=== PATIENT | female | born 1930 | race Caucasian/White ===

== ENCOUNTER → 2016-07-26 | Outpatient (CLI) | payer MEDICARE, OTHER ==
--- NOTE | 2016-07-26 13:59 | REP ---
RIGHT SHOULDER: Four views. HISTORY: Pain in the right shoulder. FINDINGS: Four views right shoulder demonstrate diffuse osteopenia. There are large periarticular soft tissue calcific deposits in the region of the rotator cuff or subacromial bursa consistent with calcific tendonitis or bursitis. Vascular calcification is noted. The glenohumeral and acromioclavicular joints are normally aligned. Clothing artifact is seen over the mediastinum on the frontal views. IMPRESSION: Large soft tissue calcific deposits consistent with calcific tendonitis or bursitis. Diffuse osteopenia. No traumatic abnormality. Signed by Alejo Salinas MD 07/26/2016 03:19 P
== END ==
LOC: M ADAMS 09:27
PROVIDERS: ATTEND Physician Assistant
DX: M85.811 Other specified disorders of bone density and structure, right shoulder (principal); M25.511 Pain in right shoulder

== ENCOUNTER → 2017-06-01 | Outpatient (CLI) | payer MEDICARE ==
--- NOTE | 2017-06-01 10:42 | REP ---
CAROTID DUPLEX ULTRASOUND: 06/01/2017. Clinical history: Hypotension, dizziness. Questionable bruit. Findings: There were no prior studies. Standard duplex techniques were utilized to evaluate both carotid systems. There is some intimal thickening in the right common carotid with some mixed plaque in the mid course of the artery. At the bulb, there is circumferential mixed and hard plaque which extends into the proximal ICA and ECA. The left common carotid shows intimal thickening and circumferential mixed plaque at the bulb and extending into both ICA and ECA. RIGHT LEFT CCA systolic 0.58 0.70 m/s ICA systolic 0.75 1.72 m/s ICA diastolic 0.17 0.25 m/s ECA systolic 0.77 1.15 m/s IC/CC ratio 1.3 2.5 Cranial direction of flow seen in both vertebral arteries. The Doppler waveform analysis does not show significant spectral broadening or filling in of the systolic window on the right side despite the visible plaque. The left internal carotid Doppler tracing shows minimal spectral broadening and partial filling of the systolic window. This is in the proximal left ICA. Impression: 1. Severe stenosis of the left internal carotid (50-70% narrowing). This is considered a hemodynamically significant lesion but not critical. Circumferential mixed plaque bulb and proximal left ICA. 2. Mild carotid disease in the right ICA, less than 50% stenosis. This is not considered hemodynamically significant or flow restricting. 3. Cranial directional of flow in the vertebral arteries. Signed by Leo Luis MD 06/01/2017 07:33 P
== END ==
LOC: M RAD 08:56
PROVIDERS: ATTEND Physician Assistant
DX: R09.89 Other specified symptoms and signs involving the circulatory and respiratory systems (principal)

== ENCOUNTER → 2017-12-26 | Outpatient (CLI) | payer MEDICARE | LOC: M RAD 11:43 | DX: I70.213 Atherosclerosis of native arteries of extremities with intermittent claudication, bilateral legs (principal) | CPT/HCPCS: 93925 ==

== ENCOUNTER → 2018-01-16 | Outpatient (CLI) | payer MEDICARE ==
[2018-01-16 16:51] LABS: BASO # 0.1 10^3/uL (0.0-0.2); BASO % 0.7 % (0.0-1.0); EOS # 0.1 10^3/uL (0.0-0.50); HEMATOCRIT 38.9 % (36.0-47.0); HEMOGLOBIN 12.7 g/dl (12.0-15.5); IMMATURE GRANULOCYTE % 0.7 % (0-3.0); LYMPH # 1.5 10^3/uL (1.5-4.5); LYMPH % 22.2 % (24.0-44.0); MEAN CORPUSCULAR HEMOGLOBIN 31.3 pg (27.0-33.0); MEAN CORPUSCULAR HGB CONC 32.6 g/dl (32.0-36.5); MEAN CORPUSCULAR VOLUME 95.8 fl (80.0-96.0); MONO # 0.6 10^3/uL (0.0-0.8); MONO % 8.1 % (0.0-5.0); NEUTROPHILS # 4.6 10^3/uL (1.8-7.7); NEUTROPHILS % 66.3 % (36.0-66.0); PLATELET COUNT, AUTOMATED 255 10^3/uL (150-450); RED BLOOD COUNT 4.06 10^6/uL (4.00-5.40); RED CELL DISTRIBUTION WIDTH 14.1 % (11.5-14.5); WHITE BLOOD COUNT 6.9 10^3/uL (4.0-10.0)
[2018-01-16 17:06] LABS: ANION GAP 6 MEQ/L (8-16); BLOOD UREA NITROGEN 37 MG/DL (7-18); CARBON DIOXIDE LEVEL 30 MEQ/L (21-32); CHLORIDE LEVEL 108 MEQ/L (98-107); CREATININE FOR GFR 1.81 MG/DL (0.55-1.30); GLOMERULAR FILTRATION RATE 28.3 (>32); GLUCOSE, FASTING 100 MG/DL (70-100); POTASSIUM SERUM 4.6 MEQ/L (3.5-5.1); SODIUM LEVEL 144 MEQ/L (136-145)
== END ==
LOC: M LAB 16:06
DX: I65.23 Occlusion and stenosis of bilateral carotid arteries (principal)
CPT/HCPCS: 80048

== ENCOUNTER 2018-01-20 14:10 | Inpatient (IN) | payer MEDICARE ==
[2018-01-20 15:00] LABS: BASO # 0.1 10^3/uL (0.0-0.2); BASO % 0.5 % (0.0-1.0); EOS # 0.1 10^3/uL (0.0-0.50); EOS % 0.8 % (0.0-3.0); HEMOGLOBIN 12.1 g/dl (12.0-15.5); IMMATURE GRANULOCYTE % 0.9 % (0-3.0); LYMPH # 1.2 10^3/uL (1.5-4.5); LYMPH % 12.7 % (24.0-44.0); MEAN CORPUSCULAR HEMOGLOBIN 31.5 pg (27.0-33.0); MEAN CORPUSCULAR HGB CONC 32.7 g/dl (32.0-36.5); MEAN CORPUSCULAR VOLUME 96.4 fl (80.0-96.0); MONO # 0.7 10^3/uL (0.0-0.8); MONO % 6.9 % (0.0-5.0); NEUTROPHILS # 7.6 10^3/uL (1.8-7.7); NEUTROPHILS % 78.2 % (36.0-66.0); PLATELET COUNT, AUTOMATED 245 10^3/uL (150-450); RED BLOOD COUNT 3.84 10^6/uL (4.00-5.40); RED CELL DISTRIBUTION WIDTH 14.3 % (11.5-14.5); WHITE BLOOD COUNT 9.7 10^3/uL (4.0-10.0)
[2018-01-20 15:15] LABS: PROTHROMBIN TIME 14.3 SECONDS (12.1-14.4)
[2018-01-20 15:16] LABS: PARTIAL THROMBOPLASTIN TIME 26.8 SECONDS (25.4-37.6)
[2018-01-20 15:21] LABS: ANION GAP 4 MEQ/L (8-16); BLOOD UREA NITROGEN 36 MG/DL (7-18); CALCIUM LEVEL 8.9 MG/DL (8.8-10.2); CARBON DIOXIDE LEVEL 29 MEQ/L (21-32); CHLORIDE LEVEL 110 MEQ/L (98-107); CREATININE FOR GFR 1.81 MG/DL (0.55-1.30); GLOMERULAR FILTRATION RATE 28.3 (>32); GLUCOSE, FASTING 117 MG/DL (70-100); SODIUM LEVEL 143 MEQ/L (136-145)
[2018-01-20 15:27] LABS: POTASSIUM SERUM 5.6 MEQ/L (3.5-5.1)
[2018-01-20 16:30] LABS: ALT/SGPT 15 U/L (12-78); AST/SGOT 26 U/L (7-37); CPK CREATINE PHOSPHOKINASE 68 U/L (26-192)
[2018-01-20 16:31] LABS: ALBUMIN 3.5 GM/DL (3.2-5.2); ALBUMIN/GLOBULIN RATIO 0.97 (1.00-1.93); ALKALINE PHOSPHATASE 46 U/L (45-117); BILIRUBIN,DIRECT 0.2 MG/DL (0.0-0.2); BILIRUBIN,TOTAL 0.4 MG/DL (0.2-1.0); TOTAL PROTEIN 7.1 GM/DL (6.4-8.2)
[2018-01-20 16:33] LABS: TROPONIN I < 0.02 NG/ML (< 0.10)
[2018-01-20 16:34] LABS: CK-MB VALUE MASS 1.1 NG/ML (<3.6); MB/CK RELATIVE INDEX 1.54 (< OR =4)
[2018-01-20] MEDS: CALCIUM GLUCONATE 1,000 MG in D5W MINI-BAG PLUS 100 ML IV (17:00)
[2018-01-20] MEDS: NS 1,000 ML IV (17:00)
[2018-01-20] MEDS: ONDANSETRON 4MG/2ML VIAL (J2405) IV (17:00)
[2018-01-20] MEDS: MORPHINE 2 MG/ML 1ML SYRINGE (J2270) IV ×3 (17:00→21:35)
[2018-01-20] MEDS: NS 500 ML IV (17:43)
[2018-01-20 19:25] LABS: ANION GAP 6 MEQ/L (8-16); BLOOD UREA NITROGEN 35 MG/DL (7-18); CALCIUM LEVEL 8.9 MG/DL (8.8-10.2); CARBON DIOXIDE LEVEL 28 MEQ/L (21-32); CHLORIDE LEVEL 110 MEQ/L (98-107); GLOMERULAR FILTRATION RATE 30.4 (>32); GLUCOSE, FASTING 110 MG/DL (70-100); SODIUM LEVEL 144 MEQ/L (136-145)
[2018-01-20] MEDS: PRAVASTATIN 20 MG TAB PO (21:00)
[2018-01-20] MEDS: ASPIRIN 81 MG ENTERIC TAB PO (21:00)
[2018-01-20] MEDS ORDERED: ONDANSETRON 4MG/2ML VIAL (J2405) IV (22:00)
[2018-01-20] MEDS ORDERED: BETAMETHASONE DIP 0.05% OINT 15 GM TOP (22:00)
[2018-01-20] MEDS ORDERED: ACETAMINOPHEN TAB 650MG DOSE (2X325MG) PO (22:00)
[2018-01-20 23:11] LABS: CPK CREATINE PHOSPHOKINASE 67 U/L (26-192); TROPONIN I < 0.02 NG/ML (< 0.10)
[2018-01-20 23:12] LABS: CK-MB VALUE MASS < 1.0 NG/ML (<3.6); MB/CK RELATIVE INDEX 1.49 (< OR =4)
[2018-01-20] MEDS: PERCOCET 5MG/325MG TAB PO (23:42)
[2018-01-21] MEDS: MORPHINE 4 MG/ML 1ML VIAL/SYRINGE (J2270) IV ×4 (01:39→11:16)
[2018-01-21] MEDS: NS 1,000 ML IV ×2 (01:51→16:15)
[2018-01-21 04:56] LABS: HEMATOCRIT 35.5 % (36.0-47.0); HEMOGLOBIN 11.2 g/dl (12.0-15.5); MEAN CORPUSCULAR HEMOGLOBIN 31.1 pg (27.0-33.0); MEAN CORPUSCULAR HGB CONC 31.5 g/dl (32.0-36.5); MEAN CORPUSCULAR VOLUME 98.6 fl (80.0-96.0); PLATELET COUNT, AUTOMATED 220 10^3/uL (150-450); RED CELL DISTRIBUTION WIDTH 14.4 % (11.5-14.5); WHITE BLOOD COUNT 10.1 10^3/uL (4.0-10.0)
[2018-01-21 05:18] LABS: ALBUMIN 3.2 GM/DL (3.2-5.2); ANION GAP 7 MEQ/L (8-16); BLOOD UREA NITROGEN 31 MG/DL (7-18); CALCIUM LEVEL 8.5 MG/DL (8.8-10.2); CARBON DIOXIDE LEVEL 27 MEQ/L (21-32); CHLORIDE LEVEL 110 MEQ/L (98-107); CK-MB VALUE MASS < 1.0 NG/ML (<3.6); CPK CREATINE PHOSPHOKINASE 76 U/L (26-192); CREATININE FOR GFR 1.67 MG/DL (0.55-1.30); GLUCOSE, FASTING 104 MG/DL (70-100); MB/CK RELATIVE INDEX 1.31 (< OR =4); PHOSPHORUS LEVEL 3.9 MG/DL (2.5-4.9); SODIUM LEVEL 144 MEQ/L (136-145); TROPONIN I < 0.02 NG/ML (< 0.10)
[2018-01-21 05:29] LABS: ESTIMATED AVERAGE GLUCOSE 123 MG/DL (60-110); HEMOGLOBIN A1c 5.9 %
[2018-01-21] MEDS: IPRATROPIUM 0.5MG/ALBUTEROL 2.5MG INH SOL UD 3ML (DUONEB)(J7620) NEB ×4 (06:38→19:27)
[2018-01-21] MEDS: SENOKOT S TAB PO ×2 (08:51→21:44)
[2018-01-21] MEDS ORDERED: METOPROLOL 5 MG/5 ML VIAL As Ordered ×2 (10:27→10:40)
[2018-01-21] MEDS: METOPROLOL 5 MG/5 ML VIAL IV ×2 (10:36→10:52)
[2018-01-21] MEDS: METOPROLOL TART 25 MG TABLET PO (10:42)
[2018-01-21] MEDS: PERCOCET 5MG/325MG TAB PO (10:43)
[2018-01-21] MEDS ORDERED: CLINDAMYCIN 600 MG/50 ML PREMIX BAG As Ordered (12:16)
[2018-01-21] MEDS: CLINDAMYCIN 600 MG in APPROPRIATE DILUENT 1 EA IV (12:41)
[2018-01-21] MEDS ORDERED: dexameTHASONE 4 MG/ML 1ML VIAL (J1100) As Ordered (13:16)
[2018-01-21] MEDS ORDERED: PROPOFOL 200 MG/20 ML VIAL As Ordered (13:16)
[2018-01-21] MEDS ORDERED: PHENYLEPHRINE INJ 10MG/ML VIAL (J2370) As Ordered (13:16)
[2018-01-21] MEDS ORDERED: MIDAZOLAM INJ 2 MG/2 ML VIAL (J2250) As Ordered (13:16)
[2018-01-21] MEDS ORDERED: ONDANSETRON 4MG/2ML VIAL (J2405) As Ordered (13:16)
[2018-01-21] MEDS ORDERED: fentaNYL 250 MCG/5 ML INJECTION (J3010) As Ordered (13:16)
[2018-01-21] MEDS ORDERED: ROCURONIUM BROMIDE 50 MG/5 ML VIAL As Ordered (13:16)
[2018-01-21] MEDS ORDERED: ePHEDrine SULFATE 25 MG/5 ML(5MG/ML) SYRINGE As Ordered (13:16)
[2018-01-21] MEDS ORDERED: LIDOCAINE 2% INJ 100 MG/5 ML SDV (FOR ANES.) As Ordered (13:16)
[2018-01-21] MEDS ORDERED: GLYCOPYRROLATE INJ 0.2 MG/ML 2 ML VIAL As Ordered (13:26)
[2018-01-21] MEDS ORDERED: NEOSTIGMINE 10 MG/10 ML VIAL (J2710) As Ordered (13:26)
[2018-01-21] MEDS: BUPIVACAINE/EPIN 0.5% 30 ML VIAL As Ordered (13:33)
[2018-01-21] MEDS ORDERED: HEPARIN SOD (PORCINE) 5000 UNITS/ML VIAL SC (14:00)
[2018-01-21] MEDS ORDERED: fentaNYL 100 MCG/2 ML INJECTION (J3010) IV (14:15)
[2018-01-21] MEDS ORDERED: NORCO, ANEXSIA 5/325MG TABLET (HYDROcodone/ACETAMINOPHEN) PO (14:15)
[2018-01-21] MEDS ORDERED: ONDANSETRON 4MG/2ML VIAL (J2405) IV (14:15)
[2018-01-21] MEDS: LR 1,000 ML IV (14:15)
[2018-01-21] MEDS ORDERED: traMADol 50 MG TAB PO (14:30)
[2018-01-21] MEDS: VITAMIN D 1,000 INTERNATIONAL UNITS TABLET PO (21:00)
[2018-01-21] MEDS ORDERED: LISINOPRIL 10 MG TAB PO (21:00)
[2018-01-21] MEDS: PRAVASTATIN 20 MG TAB PO (21:44)
[2018-01-21] MEDS: traMADol 50 MG TAB PO (21:44)
[2018-01-22] MEDS: ACETAMINOPHEN TAB 650MG DOSE (2X325MG) PO (00:25)
[2018-01-22] MEDS: IPRATROPIUM 0.5MG/ALBUTEROL 2.5MG INH SOL UD 3ML (DUONEB)(J7620) NEB ×4 (02:00→20:50)
[2018-01-22 04:08] LABS: HEMATOCRIT 30.3 % (36.0-47.0); HEMOGLOBIN 9.5 g/dl (12.0-15.5); MEAN CORPUSCULAR HGB CONC 31.4 g/dl (32.0-36.5); PLATELET COUNT, AUTOMATED 179 10^3/uL (150-450); RED BLOOD COUNT 3.06 10^6/uL (4.00-5.40); RED CELL DISTRIBUTION WIDTH 14.3 % (11.5-14.5); WHITE BLOOD COUNT 12.4 10^3/uL (4.0-10.0)
[2018-01-22 04:33] LABS: ALBUMIN 2.7 GM/DL (3.2-5.2); ANION GAP 5 MEQ/L (8-16); BLOOD UREA NITROGEN 29 MG/DL (7-18); CALCIUM LEVEL 7.7 MG/DL (8.8-10.2); CARBON DIOXIDE LEVEL 25 MEQ/L (21-32); CHLORIDE LEVEL 113 MEQ/L (98-107); CREATININE FOR GFR 1.49 MG/DL (0.55-1.30); GLOMERULAR FILTRATION RATE 35.4 (>32); GLUCOSE, FASTING 146 MG/DL (70-100); PHOSPHORUS LEVEL 3.3 MG/DL (2.5-4.9); SODIUM LEVEL 143 MEQ/L (136-145); THYROID STIMULATING HORMONE 0.747 uIU/ML (0.358-3.740)
[2018-01-22] MEDS: NS 1,000 ML IV ×2 (05:22→18:15)
[2018-01-22] MEDS: traMADol 50 MG TAB PO ×2 (05:22→13:02)
[2018-01-22] MEDS: MIRALAX *UNIT DOSE* 17GM PACKET PO (09:33)
[2018-01-22] MEDS: MOM 30ML SUSPENSION UDC PO (09:33)
[2018-01-22] MEDS: SENOKOT S TAB PO ×2 (09:33→19:58)
[2018-01-22] MEDS: RIVAROXABAN 10 MG TAB (XARELTO) PO (18:16)
[2018-01-22] MEDS: PRAVASTATIN 20 MG TAB PO (19:58)
[2018-01-22] MEDS: VITAMIN D 1,000 INTERNATIONAL UNITS TABLET PO (19:59)
[2018-01-23] MEDS: IPRATROPIUM 0.5MG/ALBUTEROL 2.5MG INH SOL UD 3ML (DUONEB)(J7620) NEB ×4 (01:40→20:45)
[2018-01-23 05:07] LABS: HEMATOCRIT 25.9 % (36.0-47.0); HEMOGLOBIN 8.1 g/dl (12.0-15.5); MEAN CORPUSCULAR HEMOGLOBIN 31.3 pg (27.0-33.0); MEAN CORPUSCULAR HGB CONC 31.3 g/dl (32.0-36.5); PLATELET COUNT, AUTOMATED 166 10^3/uL (150-450); RED BLOOD COUNT 2.59 10^6/uL (4.00-5.40); RED CELL DISTRIBUTION WIDTH 14.7 % (11.5-14.5); WHITE BLOOD COUNT 9.6 10^3/uL (4.0-10.0)
[2018-01-23] MEDS: NS 1,000 ML IV ×2 (05:20→17:50)
[2018-01-23 05:27] LABS: ALBUMIN 2.5 GM/DL (3.2-5.2); ANION GAP 7 MEQ/L (8-16); BLOOD UREA NITROGEN 40 MG/DL (7-18); CARBON DIOXIDE LEVEL 25 MEQ/L (21-32); CHLORIDE LEVEL 112 MEQ/L (98-107); CREATININE FOR GFR 1.71 MG/DL (0.55-1.30); GLOMERULAR FILTRATION RATE 30.2 (>32); GLUCOSE, FASTING 116 MG/DL (70-100); MAGNESIUM LEVEL 2.2 MG/DL (1.8-2.4); PHOSPHORUS LEVEL 2.8 MG/DL (2.5-4.9); POTASSIUM SERUM 5.1 MEQ/L (3.5-5.1); SODIUM LEVEL 144 MEQ/L (136-145)
[2018-01-23] MEDS: MIRALAX *UNIT DOSE* 17GM PACKET PO (08:47)
[2018-01-23] MEDS: SENOKOT S TAB PO ×2 (08:48→20:09)
[2018-01-23] MEDS: MOM 30ML SUSPENSION UDC PO (08:48)
[2018-01-23] MEDS: traMADol 50 MG TAB PO (08:51)
[2018-01-23] MEDS: DIGOXIN INJ 0.5 MG/2 ML AMP (J1160) IV (14:03)
[2018-01-23] MEDS: RIVAROXABAN 10 MG TAB (XARELTO) PO (17:49)
[2018-01-23] MEDS: PRAVASTATIN 20 MG TAB PO (20:09)
[2018-01-23] MEDS: VITAMIN D 1,000 INTERNATIONAL UNITS TABLET PO (20:09)
[2018-01-23] MEDS: VERAPAMIL 80 MG TAB PO (21:21)
[2018-01-24] MEDS: IPRATROPIUM 0.5MG/ALBUTEROL 2.5MG INH SOL UD 3ML (DUONEB)(J7620) NEB ×4 (01:30→20:19)
[2018-01-24] MEDS: traMADol 50 MG TAB PO ×2 (02:38→09:29)
[2018-01-24 05:38] LABS: HEMATOCRIT 25.6 % (36.0-47.0); HEMOGLOBIN 8.1 g/dl (12.0-15.5); MEAN CORPUSCULAR HEMOGLOBIN 32.4 pg (27.0-33.0); MEAN CORPUSCULAR HGB CONC 31.6 g/dl (32.0-36.5); MEAN CORPUSCULAR VOLUME 102.4 fl (80.0-96.0); PLATELET COUNT, AUTOMATED 193 10^3/uL (150-450); RED CELL DISTRIBUTION WIDTH 14.3 % (11.5-14.5); WHITE BLOOD COUNT 9.4 10^3/uL (4.0-10.0)
[2018-01-24 05:58] LABS: ALBUMIN 2.2 GM/DL (3.2-5.2); ANION GAP 5 MEQ/L (8-16); BLOOD UREA NITROGEN 33 MG/DL (7-18); CALCIUM LEVEL 7.9 MG/DL (8.8-10.2); CARBON DIOXIDE LEVEL 26 MEQ/L (21-32); CHLORIDE LEVEL 111 MEQ/L (98-107); CREATININE FOR GFR 1.31 MG/DL (0.55-1.30); GLOMERULAR FILTRATION RATE 41.1 (>32); GLUCOSE, FASTING 97 MG/DL (70-100); PHOSPHORUS LEVEL 2.4 MG/DL (2.5-4.9); SODIUM LEVEL 142 MEQ/L (136-145)
[2018-01-24 06:01] LABS: POTASSIUM SERUM 5.2 MEQ/L (3.5-5.1)
[2018-01-24] MEDS: VERAPAMIL 80 MG TAB PO ×3 (06:06→21:28)
[2018-01-24] MEDS: NS 1,000 ML IV ×2 (09:14→23:11)
[2018-01-24] MEDS: MIRALAX *UNIT DOSE* 17GM PACKET PO (09:14)
[2018-01-24] MEDS: SENOKOT S TAB PO ×2 (09:14→21:28)
[2018-01-24] MEDS: MOM 30ML SUSPENSION UDC PO (09:14)
[2018-01-24] MEDS: DIGOXIN 0.125 MG TAB PO (09:15)
[2018-01-24 12:39] LABS: ALBUMIN 2.4 GM/DL (3.2-5.2); ANION GAP 8 MEQ/L (8-16); BLOOD UREA NITROGEN 35 MG/DL (7-18); CALCIUM LEVEL 8.2 MG/DL (8.8-10.2); CARBON DIOXIDE LEVEL 27 MEQ/L (21-32); CHLORIDE LEVEL 109 MEQ/L (98-107); CREATININE FOR GFR 1.35 MG/DL (0.55-1.30); GLOMERULAR FILTRATION RATE 39.7 (>32); GLUCOSE, FASTING 108 MG/DL (70-100); PHOSPHORUS LEVEL 2.8 MG/DL (2.5-4.9); SODIUM LEVEL 144 MEQ/L (136-145)
[2018-01-24 12:43] LABS: POTASSIUM SERUM 5.2 MEQ/L (3.5-5.1)
[2018-01-24] MEDS: RIVAROXABAN 10 MG TAB (XARELTO) PO (18:05)
[2018-01-24] MEDS: PRAVASTATIN 20 MG TAB PO (21:27)
[2018-01-24] MEDS: VITAMIN D 1,000 INTERNATIONAL UNITS TABLET PO (21:28)
[2018-01-25] MEDS: traMADol 50 MG TAB PO (00:41)
[2018-01-25] MEDS: IPRATROPIUM 0.5MG/ALBUTEROL 2.5MG INH SOL UD 3ML (DUONEB)(J7620) NEB ×5 (01:11→20:19)
[2018-01-25] MEDS: VERAPAMIL 80 MG TAB PO ×3 (05:32→22:05)
[2018-01-25 05:45] LABS: HEMATOCRIT 26.4 % (36.0-47.0); MEAN CORPUSCULAR HEMOGLOBIN 31.3 pg (27.0-33.0); MEAN CORPUSCULAR HGB CONC 30.3 g/dl (32.0-36.5); MEAN CORPUSCULAR VOLUME 103.1 fl (80.0-96.0); PLATELET COUNT, AUTOMATED 216 10^3/uL (150-450); RED BLOOD COUNT 2.56 10^6/uL (4.00-5.40); RED CELL DISTRIBUTION WIDTH 14.3 % (11.5-14.5)
[2018-01-25 06:03] LABS: ALBUMIN 2.2 GM/DL (3.2-5.2); ANION GAP 6 MEQ/L (8-16); BLOOD UREA NITROGEN 35 MG/DL (7-18); CALCIUM LEVEL 8.3 MG/DL (8.8-10.2); CARBON DIOXIDE LEVEL 27 MEQ/L (21-32); CHLORIDE LEVEL 111 MEQ/L (98-107); CREATININE FOR GFR 1.37 MG/DL (0.55-1.30); GLUCOSE, FASTING 102 MG/DL (70-100); MAGNESIUM LEVEL 2.3 MG/DL (1.8-2.4); PHOSPHORUS LEVEL 2.9 MG/DL (2.5-4.9); SODIUM LEVEL 144 MEQ/L (136-145)
[2018-01-25 06:11] LABS: POTASSIUM SERUM 5.2 MEQ/L (3.5-5.1)
[2018-01-25] MEDS: MIRALAX *UNIT DOSE* 17GM PACKET PO (09:00)
[2018-01-25] MEDS: MOM 30ML SUSPENSION UDC PO (09:59)
[2018-01-25] MEDS: SENOKOT S TAB PO ×2 (10:00→22:05)
[2018-01-25] MEDS: DIGOXIN 0.125 MG TAB PO (10:02)
[2018-01-25] MEDS ORDERED: ISOVUE-370 76% 100ML VIAL (Q9967) As Ordered (10:56)
[2018-01-25] MEDS: NS 1,000 ML IV ×2 (11:07→12:38)
[2018-01-25] MEDS ORDERED: SLF 3 ML SYR IV (15:30)
[2018-01-25] MEDS: FUROSEMIDE 40 MG/4 ML VIAL (J1940) IV ×2 (15:59→23:21)
[2018-01-25] MEDS: RIVAROXABAN 10 MG TAB (XARELTO) PO (18:05)
[2018-01-25] MEDS: PRAVASTATIN 20 MG TAB PO (22:04)
[2018-01-25] MEDS: SLF 3 ML SYR IV (22:05)
[2018-01-25] MEDS: VITAMIN D 1,000 INTERNATIONAL UNITS TABLET PO (22:05)
[2018-01-26] MEDS: IPRATROPIUM 0.5MG/ALBUTEROL 2.5MG INH SOL UD 3ML (DUONEB)(J7620) NEB ×4 (02:07→19:37)
[2018-01-26 05:51] LABS: HEMATOCRIT 25.3 % (36.0-47.0); MEAN CORPUSCULAR HEMOGLOBIN 31.3 pg (27.0-33.0); MEAN CORPUSCULAR HGB CONC 31.6 g/dl (32.0-36.5); MEAN CORPUSCULAR VOLUME 98.8 fl (80.0-96.0); PLATELET COUNT, AUTOMATED 256 10^3/uL (150-450); RED BLOOD COUNT 2.56 10^6/uL (4.00-5.40); RED CELL DISTRIBUTION WIDTH 14.1 % (11.5-14.5); WHITE BLOOD COUNT 9.9 10^3/uL (4.0-10.0)
[2018-01-26] MEDS: SLF 3 ML SYR IV ×3 (06:06→21:06)
[2018-01-26] MEDS: VERAPAMIL 80 MG TAB PO ×3 (06:06→21:06)
[2018-01-26] MEDS: traMADol 50 MG TAB PO (06:06)
[2018-01-26 06:09] LABS: ALBUMIN 2.1 GM/DL (3.2-5.2); ANION GAP 9 MEQ/L (8-16); BLOOD UREA NITROGEN 32 MG/DL (7-18); CALCIUM LEVEL 8.2 MG/DL (8.8-10.2); CARBON DIOXIDE LEVEL 27 MEQ/L (21-32); CHLORIDE LEVEL 107 MEQ/L (98-107); CREATININE FOR GFR 1.42 MG/DL (0.55-1.30); GLOMERULAR FILTRATION RATE 37.4 (>32); GLUCOSE, FASTING 109 MG/DL (70-100); MAGNESIUM LEVEL 2.3 MG/DL (1.8-2.4); PHOSPHORUS LEVEL 2.7 MG/DL (2.5-4.9); POTASSIUM SERUM 4.3 MEQ/L (3.5-5.1); SODIUM LEVEL 143 MEQ/L (136-145)
[2018-01-26] MEDS: FUROSEMIDE 40 MG/4 ML VIAL (J1940) IV ×2 (08:23→15:07)
[2018-01-26] MEDS: DIGOXIN 0.125 MG TAB PO (08:24)
[2018-01-26] MEDS: SENOKOT S TAB PO ×2 (08:24→21:00)
[2018-01-26] MEDS: MOM 30ML SUSPENSION UDC PO (08:24)
[2018-01-26] MEDS: MIRALAX *UNIT DOSE* 17GM PACKET PO (08:24)
[2018-01-26] MEDS: ACETAMINOPHEN TAB 650MG DOSE (2X325MG) PO (08:34)
[2018-01-26] MEDS: RIVAROXABAN 10 MG TAB (XARELTO) PO (18:19)
[2018-01-26] MEDS: VITAMIN D 1,000 INTERNATIONAL UNITS TABLET PO (21:00)
[2018-01-26] MEDS: PRAVASTATIN 20 MG TAB PO (21:00)
[2018-01-27] MEDS: FUROSEMIDE 40 MG/4 ML VIAL (J1940) IV ×3 (00:04→17:18)
[2018-01-27] MEDS: IPRATROPIUM 0.5MG/ALBUTEROL 2.5MG INH SOL UD 3ML (DUONEB)(J7620) NEB ×4 (01:08→20:30)
[2018-01-27] MEDS: SLF 3 ML SYR IV ×3 (05:19→21:53)
[2018-01-27] MEDS: VERAPAMIL 80 MG TAB PO ×3 (05:19→21:53)
[2018-01-27 05:28] LABS: HEMATOCRIT 25.1 % (36.0-47.0); MEAN CORPUSCULAR HEMOGLOBIN 31.4 pg (27.0-33.0); MEAN CORPUSCULAR HGB CONC 31.9 g/dl (32.0-36.5); MEAN CORPUSCULAR VOLUME 98.4 fl (80.0-96.0); PLATELET COUNT, AUTOMATED 294 10^3/uL (150-450); RED BLOOD COUNT 2.55 10^6/uL (4.00-5.40); RED CELL DISTRIBUTION WIDTH 14.3 % (11.5-14.5); WHITE BLOOD COUNT 10.3 10^3/uL (4.0-10.0)
[2018-01-27 05:44] LABS: ALBUMIN 2.1 GM/DL (3.2-5.2); ANION GAP 8 MEQ/L (8-16); BLOOD UREA NITROGEN 37 MG/DL (7-18); CALCIUM LEVEL 8.7 MG/DL (8.8-10.2); CARBON DIOXIDE LEVEL 31 MEQ/L (21-32); CHLORIDE LEVEL 104 MEQ/L (98-107); CREATININE FOR GFR 1.61 MG/DL (0.55-1.30); GLOMERULAR FILTRATION RATE 32.4 (>32); GLUCOSE, FASTING 121 MG/DL (70-100); MAGNESIUM LEVEL 2.2 MG/DL (1.8-2.4); PHOSPHORUS LEVEL 3.1 MG/DL (2.5-4.9); POTASSIUM SERUM 3.9 MEQ/L (3.5-5.1); SODIUM LEVEL 143 MEQ/L (136-145)
[2018-01-27] MEDS: MOM 30ML SUSPENSION UDC PO (08:47)
[2018-01-27] MEDS: SENOKOT S TAB PO ×2 (08:47→20:12)
[2018-01-27] MEDS: MIRALAX *UNIT DOSE* 17GM PACKET PO (08:49)
[2018-01-27] MEDS: traMADol 50 MG TAB PO (08:49)
[2018-01-27] MEDS: DIGOXIN 0.125 MG TAB PO (08:49)
[2018-01-27] MEDS: RIVAROXABAN 10 MG TAB (XARELTO) PO (17:19)
[2018-01-27] MEDS: PRAVASTATIN 20 MG TAB PO (20:12)
[2018-01-27] MEDS: VITAMIN D 1,000 INTERNATIONAL UNITS TABLET PO (20:12)
[2018-01-28] MEDS: FUROSEMIDE 40 MG/4 ML VIAL (J1940) IV ×4 (00:32→23:42)
[2018-01-28] MEDS: IPRATROPIUM 0.5MG/ALBUTEROL 2.5MG INH SOL UD 3ML (DUONEB)(J7620) NEB ×4 (02:00→20:01)
[2018-01-28] MEDS: traMADol 50 MG TAB PO ×3 (04:09→21:24)
[2018-01-28] MEDS: ACETAMINOPHEN TAB 650MG DOSE (2X325MG) PO (06:45)
[2018-01-28] MEDS: SLF 3 ML SYR IV ×3 (06:46→21:25)
[2018-01-28] MEDS: VERAPAMIL 80 MG TAB PO ×3 (06:46→21:23)
[2018-01-28] MEDS: MIRALAX *UNIT DOSE* 17GM PACKET PO (09:00)
[2018-01-28] MEDS: MOM 30ML SUSPENSION UDC PO (09:09)
[2018-01-28] MEDS: DIGOXIN 0.125 MG TAB PO (09:10)
[2018-01-28] MEDS: SENOKOT S TAB PO ×2 (09:10→21:00)
[2018-01-28] MEDS: RIVAROXABAN 10 MG TAB (XARELTO) PO (17:24)
[2018-01-28] MEDS: VITAMIN D 1,000 INTERNATIONAL UNITS TABLET PO (21:23)
[2018-01-28] MEDS: PRAVASTATIN 20 MG TAB PO (21:23)
[2018-01-29] MEDS: IPRATROPIUM 0.5MG/ALBUTEROL 2.5MG INH SOL UD 3ML (DUONEB)(J7620) NEB ×4 (02:00→19:52)
[2018-01-29] MEDS: VERAPAMIL 80 MG TAB PO ×3 (06:22→21:23)
[2018-01-29] MEDS: SLF 3 ML SYR IV ×3 (06:22→21:24)
[2018-01-29] MEDS: FUROSEMIDE 40 MG/4 ML VIAL (J1940) IV ×2 (08:00→17:25)
[2018-01-29 08:26] LABS: HEMATOCRIT 28.3 % (36.0-47.0); MEAN CORPUSCULAR HEMOGLOBIN 31.8 pg (27.0-33.0); MEAN CORPUSCULAR HGB CONC 31.8 g/dl (32.0-36.5); PLATELET COUNT, AUTOMATED 359 10^3/uL (150-450); RED BLOOD COUNT 2.83 10^6/uL (4.00-5.40); WHITE BLOOD COUNT 10.4 10^3/uL (4.0-10.0)
[2018-01-29] MEDS: ESCITALOPRAM OXALATE 10 MG TAB (LEXAPRO) PO (08:38)
[2018-01-29] MEDS: SENOKOT S TAB PO ×2 (08:39→21:00)
[2018-01-29] MEDS: MOM 30ML SUSPENSION UDC PO (08:39)
[2018-01-29] MEDS: DIGOXIN 0.125 MG TAB PO (08:39)
[2018-01-29] MEDS: MIRALAX *UNIT DOSE* 17GM PACKET PO (08:40)
[2018-01-29] MEDS: FUROSEMIDE 100 MG/10 ML VIAL (J1940) IV (08:40)
[2018-01-29 08:52] LABS: ANION GAP 7 MEQ/L (8-16); BLOOD UREA NITROGEN 41 MG/DL (7-18); CARBON DIOXIDE LEVEL 36 MEQ/L (21-32); CHLORIDE LEVEL 97 MEQ/L (98-107); CREATININE FOR GFR 1.59 MG/DL (0.55-1.30); GLOMERULAR FILTRATION RATE 32.8 (>32); GLUCOSE, FASTING 124 MG/DL (70-100); POTASSIUM SERUM 3.8 MEQ/L (3.5-5.1); SODIUM LEVEL 140 MEQ/L (136-145)
[2018-01-29] MEDS: ACETAMINOPHEN TAB 650MG DOSE (2X325MG) PO (10:41)
[2018-01-29] MEDS ORDERED: traMADol 50 MG TAB PO (11:45)
[2018-01-29] MEDS: traMADol 50 MG TAB PO ×2 (12:03→21:23)
[2018-01-29] MEDS: RIVAROXABAN 10 MG TAB (XARELTO) PO (17:25)
[2018-01-29] MEDS: VITAMIN D 1,000 INTERNATIONAL UNITS TABLET PO (21:22)
[2018-01-29] MEDS: PRAVASTATIN 20 MG TAB PO (21:24)
[2018-01-30] MEDS: FUROSEMIDE 40 MG/4 ML VIAL (J1940) IV ×2 (00:07→08:27)
[2018-01-30] MEDS: IPRATROPIUM 0.5MG/ALBUTEROL 2.5MG INH SOL UD 3ML (DUONEB)(J7620) NEB ×4 (01:04→20:16)
[2018-01-30 05:53] LABS: HEMATOCRIT 27.9 % (36.0-47.0); HEMOGLOBIN 8.8 g/dl (12.0-15.5); MEAN CORPUSCULAR HEMOGLOBIN 31.3 pg (27.0-33.0); MEAN CORPUSCULAR HGB CONC 31.5 g/dl (32.0-36.5); MEAN CORPUSCULAR VOLUME 99.3 fl (80.0-96.0); PLATELET COUNT, AUTOMATED 382 10^3/uL (150-450); RED BLOOD COUNT 2.81 10^6/uL (4.00-5.40); RED CELL DISTRIBUTION WIDTH 14.1 % (11.5-14.5); WHITE BLOOD COUNT 10.6 10^3/uL (4.0-10.0)
[2018-01-30] MEDS: SLF 3 ML SYR IV ×3 (06:00→20:43)
[2018-01-30 06:11] LABS: ANION GAP 6 MEQ/L (8-16); BLOOD UREA NITROGEN 47 MG/DL (7-18); CALCIUM LEVEL 9.1 MG/DL (8.8-10.2); CARBON DIOXIDE LEVEL 39 MEQ/L (21-32); CHLORIDE LEVEL 94 MEQ/L (98-107); CREATININE FOR GFR 1.76 MG/DL (0.55-1.30); GLOMERULAR FILTRATION RATE 29.2 (>32); GLUCOSE, FASTING 107 MG/DL (70-100); POTASSIUM SERUM 3.9 MEQ/L (3.5-5.1); SODIUM LEVEL 139 MEQ/L (136-145)
[2018-01-30] MEDS: VERAPAMIL 80 MG TAB PO (06:12)
[2018-01-30] MEDS: ESCITALOPRAM OXALATE 10 MG TAB (LEXAPRO) PO (08:27)
[2018-01-30] MEDS: DIGOXIN 0.125 MG TAB PO (08:27)
[2018-01-30] MEDS: SENOKOT S TAB PO ×2 (08:27→20:43)
[2018-01-30] MEDS: MIRALAX *UNIT DOSE* 17GM PACKET PO (09:00)
[2018-01-30] MEDS: MOM 30ML SUSPENSION UDC PO (09:00)
[2018-01-30 12:46] LABS: DIGOXIN LEVEL 1.9 NG/ML (0.5-2.0)
[2018-01-30] MEDS: traMADol 50 MG TAB PO ×2 (15:07→23:52)
[2018-01-30] MEDS: RIVAROXABAN 15 MG TAB (XARELTO) PO (18:05)
[2018-01-30] MEDS: PRAVASTATIN 20 MG TAB PO (20:42)
[2018-01-30] MEDS: VERAPAMIL 120 MG SR TAB PO (20:43)
[2018-01-30] MEDS: VITAMIN D 1,000 INTERNATIONAL UNITS TABLET PO (20:43)
[2018-01-31] MEDS: SLF 3 ML SYR IV ×2 (05:46→08:12)
[2018-01-31 06:51] LABS: HEMATOCRIT 27.5 % (36.0-47.0); HEMOGLOBIN 8.6 g/dl (12.0-15.5); MEAN CORPUSCULAR HEMOGLOBIN 31.4 pg (27.0-33.0); MEAN CORPUSCULAR HGB CONC 31.3 g/dl (32.0-36.5); MEAN CORPUSCULAR VOLUME 100.4 fl (80.0-96.0); PLATELET COUNT, AUTOMATED 385 10^3/uL (150-450); RED BLOOD COUNT 2.74 10^6/uL (4.00-5.40); RED CELL DISTRIBUTION WIDTH 14.2 % (11.5-14.5); WHITE BLOOD COUNT 10.7 10^3/uL (4.0-10.0)
[2018-01-31] MEDS: IPRATROPIUM 0.5MG/ALBUTEROL 2.5MG INH SOL UD 3ML (DUONEB)(J7620) NEB (07:05)
[2018-01-31 07:09] LABS: ANION GAP 7 MEQ/L (8-16); BLOOD UREA NITROGEN 47 MG/DL (7-18); CALCIUM LEVEL 8.8 MG/DL (8.8-10.2); CARBON DIOXIDE LEVEL 37 MEQ/L (21-32); CHLORIDE LEVEL 95 MEQ/L (98-107); CREATININE FOR GFR 1.63 MG/DL (0.55-1.30); GLOMERULAR FILTRATION RATE 31.9 (>32); GLUCOSE, FASTING 99 MG/DL (70-100); POTASSIUM SERUM 3.5 MEQ/L (3.5-5.1); SODIUM LEVEL 139 MEQ/L (136-145)
[2018-01-31] MEDS: MIRALAX *UNIT DOSE* 17GM PACKET PO (08:10)
[2018-01-31] MEDS: MOM 30ML SUSPENSION UDC PO (08:10)
[2018-01-31] MEDS: SENOKOT S TAB PO (08:10)
[2018-01-31] MEDS: ESCITALOPRAM OXALATE 10 MG TAB (LEXAPRO) PO (08:10)
[2018-01-31] MEDS: DIGOXIN 0.125 MG TAB PO (08:11)
== END 2018-01-31 12:41 | DRG 480 ==
LOC: M MSPAV 01-21 01:07 → M PCU 01-21 14:01 → M ED 14:10 → M ED INP 22:00
PROC: 0QS604Z Reposition Right Upper Femur with Internal Fixation Device, Open Approach (ICD-10-PCS; principal; 2018-01-21 12:27)
DX: S72.141A Displaced intertrochanteric fracture of right femur, initial encounter for closed fracture (principal); I50.33 Acute on chronic diastolic (congestive) heart failure; I13.0 Hypertensive heart and chronic kidney disease with heart failure and stage 1 through stage 4 chronic kidney disease, or unspecified chronic kidney disease; I48.91 Unspecified atrial fibrillation; I73.9 Peripheral vascular disease, unspecified; I71.4 Abdominal aortic aneurysm, without rupture; E78.5 Hyperlipidemia, unspecified; N18.9 Chronic kidney disease, unspecified; F32.9 Major depressive disorder, single episode, unspecified; J44.9 Chronic obstructive pulmonary disease, unspecified; Z98.49 Cataract extraction status, unspecified eye; Z85.038 Personal history of other malignant neoplasm of large intestine; Z88.0 Allergy status to penicillin; Z87.891 Personal history of nicotine dependence; Z79.82 Long term (current) use of aspirin; Z79.899 Other long term (current) drug therapy; E87.5 Hyperkalemia; W10.8XXA Fall (on) (from) other stairs and steps, initial encounter; Y92.007 Garden or yard of unspecified non-institutional (private) residence as the place of occurrence of the external cause; Y93.01 Activity, walking, marching and hiking; Z63.4 Disappearance and death of family member

== ENCOUNTER 2018-11-04 09:42 | Inpatient (IN) | payer MEDICARE ==
[~2018-11-04] VITALS: Ht 160 cm; Wt 53.4 kg
[~2018-11-04 09:42] MED LIST: ASPI81TA85 PO; BETA5CR TOP; CART120C PO; DIGO0.12 PO; DILT60TA PO; ESCI10TA2 PO; FENO160T10 PO; LASI40TA9 PO; LISI10TA4 PO; PRAV40TA2 PO; VERA240C PO; VITA-121 PO; VITA200016 PO; XARE15TA PO
[2018-11-04 10:13] LABS: BASO # 0.1 10^3/uL (0.0-0.2); BASO % 0.6 % (0.0-1.0); EOS # 0.1 10^3/uL (0.0-0.50); EOS % 0.7 % (0.0-3.0); HEMATOCRIT 35.4 % (36.0-47.0); HEMOGLOBIN 11.3 g/dl (12.0-15.5); LYMPH # 2.3 10^3/uL (1.5-4.5); LYMPH % 17.2 % (24.0-44.0); MEAN CORPUSCULAR HEMOGLOBIN 31.6 pg (27.0-33.0); MEAN CORPUSCULAR HGB CONC 31.9 g/dl (32.0-36.5); MEAN CORPUSCULAR VOLUME 98.9 fl (80.0-96.0); MONO % 7.6 % (0.0-5.0); NEUTROPHILS # 9.6 10^3/uL (1.8-7.7); NEUTROPHILS % 71.8 % (36.0-66.0); PLATELET COUNT, AUTOMATED 282 10^3/uL (150-450); RED BLOOD COUNT 3.58 10^6/uL (4.00-5.40); WHITE BLOOD COUNT 13.3 10^3/uL (4.0-10.0)
[2018-11-04 10:24] LABS: INR 0.99; PARTIAL THROMBOPLASTIN TIME 22.4 SECONDS (25.4-37.6); PROTHROMBIN TIME 13.2 SECONDS (12.1-14.4)
[2018-11-04] MEDS ORDERED: ROPI0.5T PO (10:28)
[2018-11-04] MEDS ORDERED: FURO20TA2 PO (10:28)
[2018-11-04] MEDS ORDERED: NS 500 ML IV ONE ×2 (10:45)
[2018-11-04 10:56] LABS: CALCIUM LEVEL 8.3 MG/DL (8.8-10.2); CREATININE FOR GFR 1.56 MG/DL (0.55-1.30); GLOMERULAR FILTRATION RATE 33.5 (>32); POTASSIUM SERUM 5.5 MEQ/L (3.5-5.1)
[2018-11-04] MEDS ORDERED: VERA24TASA PO (12:03)
[2018-11-04] MEDS ORDERED: ASPI81TA27 PO (12:03)
[2018-11-04] MEDS ORDERED: DIGO0.12 PO (12:03)
[2018-11-04] MEDS ORDERED: VITA-145 PO (12:03)
[2018-11-04] MEDS ORDERED: BETAMETHASONE DIP 0.05% OINT 15 GM TOP PRN (12:45)
[2018-11-04] MEDS ORDERED: NS 1,000 ML IV SCH ×2 (12:45→14:45)
--- NOTE | 2018-11-04 12:59 | HPEPDOC ---
[facility] Medical History & Physical Date of Admission November 04, 2018 History and Physical CHIEF COMPLAINT: [Rectal bleed] HISTORY OF PRESENT ILLNESS: [88-year-old female was in a few past medical history of COPD not oxygen dependent, hypertension, hyperlipidemia, chronic kidney disease, peripheral vascular disease, aortic abdominal aneurysm, history of diverticulosis and colon cancer status post resection who is presenting complaining of nonpainful rectal bleeding that started 2 AM. Patient has a history of diverticulosis diagnosed in 2011 via colonoscopy. Patient also has a history of colon Cancer and status post resection in 1991. Patient denies of any trauma and denies of any consumption of excessive NSAID. Patient is on baby aspirin daily only. Patient only takes Tylenol for discomfort. Patient denies of any alcohol use. Patient also denies of any hemorrhoids. She does have a history of peripheral vascular disease and AAA and sees Dr. Zeng. Patient resting comfortably in the emergency room. Patient had a hemoglobin of 11.3 and previously in January 2018 her blood was lower at 8.6. Patient's case was discussed by the ER staff with Dr. Kevin commercial lending relationship manager who recommended serial H&H, when necessary red blood cell transfusion, and plan for endoscopy evaluation on Tuesday. PAST MEDICAL HISTORY: COPD and not oxygen dependent Hypertension Dyslipidemia Chronic kidney disease Peripheral vascular disease Abdominal aortic aneurysm PAST SURGICAL HISTORY: Colon Resection Tonsillectomy Cataract surgery SOCIAL HISTORY: Former smoker quit in 2005. Denies any alcohol use. Denies of any IV drug abuse FAMILY HISTORY: Reviewed and noncontributory ALLERGIES: Please see below. REVIEW OF SYSTEMS: 12 point review systems negative than those described in HPI HOME MEDICATIONS: Please see below. PHYSICAL EXAMINATION: VITAL SIGNS: Please see below GENERAL APPEARANCE: Resting comfortably HEENT: Normocephalic, PERRLA, Mucous moist, CARDIOVASCULAR: S1,S2, pulse present, regularly, regular LUNGS: Equal air entry b/l, no wheezes or crackle ABDOMEN: Soft, BS present, no tenderness, no guarding, no abdominal pain GENITOURINARY: No Ware EXTREMITIES: B/L no edema, capillary refill present SKIN: Warm, No fever NEUROLOGICAL: Cranial nerves grossly intact PSYCHIATRIC: Normal mood and affect for current situation LABORATORY DATA: See below. IMAGING: [None at this time] MICROBIOLOGY: Please see below. Assessment and plan: 88-year-old female was in a few past medical history of COPD not oxygen dependent, hypertension, hyperlipidemia, chronic kidney disease, peripheral vascular disease, aortic abdominal aneurysm, history of diverticulosis and colon cancer status post resection who is presenting complaining of nonpainful rectal bleeding. Rectal bleeding -History of diverticulosis 2011 and colon cancer status post resection 1991 -No NSAID other than baby aspirin, no alcohol consumption, no anticoagulant other than baby aspirin -No history of hemorrhoid -Serial H&H, transfuse red blood cell transfusion as needed -Consult with Dr. Kevin commercial lending relationship manager for endoscopy evaluation -Occult stool pending -IV Protonix empirically COPD not oxygen dependent -Respiratory treatment as needed Patient on digoxin, resume Hypertension, resume home regimen verapamil Hyperlipidemia, resume home regimen statin Chronic kidney disease, resume home regimen furosemide and monitor renal function and volume status Peripheral vascular disease, aortic abdominal aneurysm, hold aspirin for now and patient to follow-up with Dr. Zeng as outpatient DVT prophylaxis with SCD Vital Signs Vital Signs Date Time Temp Pulse Resp B/P (MAP) Pulse Ox O2 Delivery O2 Flow Rate FiO2 11/04/18 12:00 156/72 (100) 11/04/18 11:57 75 16 97 Room Air 11/04/18 09:42 97.5 Laboratory Data Labs 24H Laboratory Tests 2 11/04/18 09:58: Immature Granulocyte % (Auto) 2.1, White Blood Count 13.3H, Red Blood Count 3.58L, Hemoglobin 11.3L, Hematocrit 35.4L, Mean Corpuscular Volume 98.9H, Mean Corpuscular Hemoglobin 31.6, Mean Corpuscular Hemoglobin Concent 31.9L, Red Cell Distribution Width 14.6H, Platelet Count 282, Neutrophils (%) (Auto) 71.8H, Lymphocytes (%) (Auto) 17.2L, Monocytes (%) (Auto) 7.6H, Eosinophils (%) (Auto) 0.7, Basophils (%) (Auto) 0.6, Neutrophils # (Auto) 9.6H, Lymphocytes # (Auto) 2.3, Monocytes # (Auto) 1.0H, Eosinophils # (Auto) 0.1, Basophils # (Auto) 0.1, Nucleated Red Blood Cells % (auto) 0.0, Prothrombin Time 13.2, Prothromb Time International Ratio 0.99, Activated Partial Thromboplast Time 22.4L, Anion Gap 7L, Glomerular Filtration Rate 33.5, Blood Urea Nitrogen 46H, Creatinine 1.56H, Sodium Level 141, Potassium Level 5.5H, Chloride Level 109H, Carbon Dioxide Level 25, Calcium Level 8.3L CBC/BMP Laboratory Tests 11/04/18 09:58 Red Blood Count 3.58 L, Mean Corpuscular Volume 98.9 H, Mean Corpuscular Hemoglobin 31.6, Mean Corpuscular Hemoglobin Concent 31.9 L, Red Cell Distribution Width 14.6 H, Neutrophils (%) (Auto) 71.8 H, Lymphocytes (%) (Auto) 17.2 L, Monocytes (%) (Auto) 7.6 H, Eosinophils (%) (Auto) 0.7, Basophils (%) (Auto) 0.6, Neutrophils # (Auto) 9.6 H, Lymphocytes # (Auto) 2.3, Monocytes # (Auto) 1.0 H, Eosinophils # (Auto) 0.1, Basophils # (Auto) 0.1, Calcium Level 8.3 L Home Medications Scheduled Aspirin (Aspirin EC) 81 Mg Tablet.dr, 81 MG PO QHS Cholecalciferol (Vitamin D3) (Vitamin D3) 1,000 Unit Tablet, 1,000 UNIT PO QHS Digoxin (Digoxin) 125 Mcg Tablet, 125 MCG PO QHS Furosemide (Furosemide) 20 Mg Tablet, 10 MG PO QHS Pravastatin Sodium (Pravastatin Sodium) 40 Mg Tab, 40 MG PO QHS Ropinirole HCl (Ropinirole HCl) 0.5 Mg Tablet, 0.5 MG PO QHS Verapamil HCl (Verapamil ER) 240 Mg Tablet.er, 240 MG PO QHS Scheduled PRN Betamethasone Dip (Betamethasone Dipropionate) 1 Dose/15 Gm Cream, 1 DOSE TOP BID PRN for PSORIASIS APPLIED TO BACK OF NECK/SCALP Allergies Coded Allergies: Penicillins (Verified Allergy, Intermediate, hives, 11/04/18) A-FIB/CHADSVASC A-FIB History Current/History of A-Fib/PAF?: No SUSAN GOLDEN MD November 04, 2018 12:59
[2018-11-04] MEDS ORDERED: IPRATROPIUM 0.5MG/ALBUTEROL 2.5MG INH SOL UD 3ML (DUONEB)(J7620) NEB PRN (13:00)
[2018-11-04 13:39] LABS: HEMATOCRIT 30.6 % (36.0-47.0); HEMOGLOBIN 9.8 g/dl (12.0-15.5)
[2018-11-04 13:54] VITALS: BP 142/65
[2018-11-04] MEDS: PANTOPRAZOLE 40MG INJ (PROTONIX) (C9113) IV SCH (14:35)
[2018-11-04 15:47] VITALS: BP 123/61
[2018-11-04 20:00] VITALS: BP 134/65
[2018-11-04] MEDS: rOPINIRole 0.25 MG TAB(REQUIP) PO SCH (20:43)
[2018-11-04] MEDS: FUROSEMIDE 10MG PER 1/2 TABLET PO SCH (20:44)
[2018-11-04] MEDS: PRAVASTATIN 20 MG TAB PO SCH (20:44)
[2018-11-04] MEDS: DIGOXIN 0.125 MG TAB PO SCH (20:44)
[2018-11-04] MEDS: VITAMIN D 1,000 INTERNATIONAL UNITS TABLET PO SCH (20:44)
[2018-11-04] MEDS: VERAPAMIL 120 MG SR TAB PO SCH (20:45)
[2018-11-04 21:01] LABS: HEMATOCRIT 27.3 % (36.0-47.0); HEMOGLOBIN 8.4 g/dl (12.0-15.5)
[2018-11-04 23:59] VITALS: BP 122/58
[2018-11-05] VITALS (9 sets, daily range): BP systolic 131–158; BP diastolic 60–82
--- NOTE | 2018-11-05 01:09 | CR.PDOC ---
General Date of Consultation: November 04, 2018 Referring Provider: SUSAN PATTON MD Attending Physician: ANNA QUEZADA MD Consultation Primary physician/ hospitalist: Dr. Patton Reason for consult: Rectal bleeding. HPI: 88-year-old female patient with HTN, HLD, CKD ( Cr - 1.56), PVD (on ASA 81 mg, not on anti-coagulants), COPD, abdominal aortic aneurysm, history of colon cancer status post surgery ( in 1991, last Screening Colonoscopy in [address] Márquez), presented to ER for complaints of acute onset rectal bleeding that started 2 AM yesterday, multiple episodes (around 7 as per patient with last episode in ER yesterday). Patient denies any other GI symptoms, denies,any abdominal pain, nausea, vomiting. Pertinent negative GI symptoms: Patient denies fever, sick contacts, recent travel, nausea, vomiting, abdominal pain, loss of appetite, early satiety or unintentional weight loss. No history of hematemesis, melena. Review of Systems: GI: as stated above CVS: No chest pain, No palpitations, No leg swelling. RS: No Shortness of breath, No Wheezing, no cough UNDERGROUND DISTRIBUTION ENGINEER: No dizziness, No motor weakness, No sensory problems Hematology: No bruising, No gum bleeding, Musculoskeletal: No joint pain, ambulating well. Skin: No rash : No hematuria, No burning sensation of the urine ENT: No ear discharge/ pain, No dysphagia. Eyes: No photophobia. Jaundice Home medications: reviewed. Antithrombotic agents - None Medical h/o: As above. Surgical h/o: prior Colon cancer surgery in 1991. Social h/o: Alcohol - denies , smoking - active , IVDA/ drugs - denies . Family h/o of GI cancers - Colon cancer in [facility]. Prior Endoscopies: When, who, if remember- findings --- EGD -- none. --- Colonoscopy -- done by Dr. Márquez in 2011 for screening Colonoscopy. Prior GI evaluations: none. Exam: Vitals: reviewed General: Alert and oriented x 3, not in distress HEENT: NO pallor, no icterus. Normal oropharynx, NO cervical lymph nodes. Chest: symmetric with bilateral clear air entry, CVS: S1, S2 heard, normal, no murmurs . Abdomen: non-distended, no surgical scars, soft, non-tender, no palpable masses, normal bowel sounds heard. Rectal exam: Patient refused / Deferred at this time in view of scheduled colonoscopy. Extremities: no pedal edema, pulses palpable. UNDERGROUND DISTRIBUTION ENGINEER: no focal motor or sensory deficits. Moves all extremities Skin: no rash. Labs: reviewed. Imaging - Reviewed. Impression: - Acute onset rectal bleeding, without abdominal pain in patient with prior h/o diverticulosis and h/o Colon cancer s/p ressection in 1991, last Colonoscopy in 2011. -- DDx-- Diverticular bleeding vs r/o colon polyps vs AVMs. Recommendations: - Patient educated about the test results, possible differential diagnoses and All questions answered. - Monitor H/H for now and transfuse as needed. - Clear to full liquid diet for now. - Will schedule for Colonoscopy on Tuesday after bowel prep. - The procedure, indications, risks (bleeding, perforation, infection, hypotension, respiratory depression, allergy, need for endotracheal intubation, surgery, colostomy, cardiac arrest, even ), benefits, limitations (e.g., missing a lesion), and all other alternatives (including no intervention) were explained to the patient who understood and agreed for the procedure. - For bowel prep, please give golytely 4 liters on 11/05/2018 at 9 AM to be complete by 11/06/2018 by 10 AM - Dulcolax 20 mg at 6 PM on 11/05/2018. Plan of care discussed with patient and primary team. Patient verbalized understanding and agreed with the plan. Laboratory Data CBC/BMP Laboratory Tests 11/04/18 09:58 Red Blood Count 3.58 L, Mean Corpuscular Volume 98.9 H, Mean Corpuscular Hemoglobin 31.6, Mean Corpuscular Hemoglobin Concent 31.9 L, Red Cell Distribution Width 14.6 H, Neutrophils (%) (Auto) 71.8 H, Lymphocytes (%) (Auto) 17.2 L, Monocytes (%) (Auto) 7.6 H, Eosinophils (%) (Auto) 0.7, Basophils (%) (Auto) 0.6, Neutrophils # (Auto) 9.6 H, Lymphocytes # (Auto) 2.3, Monocytes # (Auto) 1.0 H, Eosinophils # (Auto) 0.1, Basophils # (Auto) 0.1, Calcium Level 8.3 L 11/04/18 13:32 Allergies Coded Allergies: Penicillins (Verified Allergy, Intermediate, hives, 11/04/18) Home Medications Scheduled Aspirin (Aspirin EC) 81 Mg Tablet.dr, 81 MG PO QHS, (Reported) Cholecalciferol (Vitamin D3) (Vitamin D3) 1,000 Unit Tablet, 1,000 UNIT PO QHS, (Reported) Digoxin (Digoxin) 125 Mcg Tablet, 125 MCG PO QHS, (Reported) Furosemide (Furosemide) 20 Mg Tablet, 10 MG PO QHS, (Reported) Pravastatin Sodium (Pravastatin Sodium) 40 Mg Tab, 40 MG PO QHS, (Reported) Ropinirole HCl (Ropinirole HCl) 0.5 Mg Tablet, 0.5 MG PO QHS, (Reported) Verapamil HCl (Verapamil ER) 240 Mg Tablet.er, 240 MG PO QHS, (Reported) Scheduled PRN Betamethasone Dip (Betamethasone Dipropionate) 1 Dose/15 Gm Cream, 1 DOSE TOP BID PRN for PSORIASIS, (Reported) APPLIED TO BACK OF NECK/SCALP ANNA QUEZADA MD November 04, 2018 19:33
[2018-11-05 03:09] LABS: HEMATOCRIT 25.1 % (36.0-47.0); HEMOGLOBIN 7.9 g/dl (12.0-15.5); MEAN CORPUSCULAR HEMOGLOBIN 31.7 pg (27.0-33.0); MEAN CORPUSCULAR HGB CONC 31.5 g/dl (32.0-36.5); MEAN CORPUSCULAR VOLUME 100.8 fl (80.0-96.0); RED BLOOD COUNT 2.49 10^6/uL (4.00-5.40); WHITE BLOOD COUNT 8.8 10^3/uL (4.0-10.0)
[2018-11-05 03:18] LABS: PLATELET COUNT, AUTOMATED 179 10^3/uL (150-450)
[2018-11-05 03:36] LABS: CALCIUM LEVEL 7.7 MG/DL (8.8-10.2); CREATININE FOR GFR 1.25 MG/DL (0.55-1.30); GLOMERULAR FILTRATION RATE 43.3 (>32); POTASSIUM SERUM 4.6 MEQ/L (3.5-5.1)
[2018-11-05] MEDS ORDERED: MIRALAX *UNIT DOSE* 17GM PACKET PO ONE (09:15)
--- NOTE | 2018-11-05 12:48 | IPNPDOC ---
Date Seen The patient was seen on 11/05/18. Progress Note SUBJECTIVE: Hemoglobin went down but Patient denied of shortness of breath, CP, dizziness, or abdominal pain. She some blood mucousy stool but no carmen blood lossthat brought her to the ER yesterday and in the ER. Repeat H/H and transfuse accordingly. Patient is agreeable to endoscopy study but refuses bowel prep. GI bleed likely lower GI. Patient is aware she will not have a clean bowel without clean bowel prep evaluation of her colon will not be optimal. She explained that she drank the prep 13th times and this time she will not do it. Offered flavoring with bowel prep. Patient continue to refuse bowel prep. Staff to notify GI. OBJECTIVE PHYSICAL EXAMINATION: VITAL SIGNS: Please see below GENERAL APPEARANCE: Resting comfortably HEENT: Normocephalic, PERRLA, Mucous moist, CARDIOVASCULAR: S1,S2, pulse present, regularly, regular LUNGS: Equal air entry b/l, no wheezes or crackle ABDOMEN: Soft, BS present, no tenderness, no guarding, no abdominal pain GENITOURINARY: No Ware EXTREMITIES: B/L no edema, capillary refill present SKIN: Warm, No fever NEUROLOGICAL: Cranial nerves grossly intact PSYCHIATRIC: Normal mood and affect for current situation LABORATORY DATA, IMAGING STUDIES, MICROBIOLOGY: Please see below. 88-year-old female was in a few past medical history of COPD not oxygen dependent, hypertension, hyperlipidemia, chronic kidney disease, peripheral vascular disease, aortic abdominal aneurysm, history of diverticulosis and colon cancer status post resection who is presenting complaining of nonpainful rectal bleeding. Rectal bleeding -History of diverticulosis 2011 and colon cancer status post resection 1991 -No NSAID other than baby aspirin, no alcohol consumption, no anticoagulant other than baby aspirin -No history of hemorrhoid -Serial H&H, transfuse red blood cell transfusion as needed -Consult with Dr. Kevin labor service representative for endoscopy evaluation: plan for endoscopy tomorrow tentatively -Occult stool negative -IV Protonix empirically COPD not oxygen dependent -Respiratory treatment as needed Patient on digoxin, resume Hypertension, resume home regimen verapamil Hyperlipidemia, resume home regimen statin Chronic kidney disease, resume home regimen furosemide and monitor renal function and volume status Peripheral vascular disease, aortic abdominal aneurysm, hold aspirin for now and patient to follow-up with Dr. Zeng as outpatient DVT prophylaxis with SCD. VS, I&O, 24H, Fishbone Vital Signs/I&O Vital Signs Date Time Temp Pulse Resp B/P (MAP) Pulse Ox O2 Delivery O2 Flow Rate FiO2 11/05/18 11:55 98.0 67 18 152/66 (94) 95 11/04/18 12:45 Room Air I&O- Last 24 Hours up to 6 AM 11/05/18 06:00 Intake Total 1685 ml Output Total 400 ml Balance 1285 ml Laboratory Data 24H LABS Laboratory Tests 2 11/05/18 02:54: Nucleated Red Blood Cells % (auto) 0.0, Anion Gap 4L, Glomerular Filtration Rate 43.3, Blood Urea Nitrogen 33H, Creatinine 1.25, Sodium Level 146H, Potassium Level 4.6, Chloride Level 113H, Carbon Dioxide Level 29, Calcium Level 7.7L CBC/BMP Laboratory Tests 11/04/18 13:32 11/04/18 20:45 11/05/18 02:54 Red Blood Count 2.49 L, Mean Corpuscular Volume 100.8 H, Mean Corpuscular Hemoglobin 31.7, Mean Corpuscular Hemoglobin Concent 31.5 L, Red Cell Distribution Width 14.8 H, Calcium Level 7.7 L Microbiology Microbiology 11/04/18 Stool Occult Blood (ENRIQUE) - Final, Complete SUSAN GOLDEN MD November 05, 2018 12:48
[2018-11-05 13:03] LABS: HEMATOCRIT 31.6 % (36.0-47.0)
[2018-11-05 13:19] LABS: HEMOGLOBIN 10.3 g/dl (12.0-15.5)
[2018-11-05] MEDS: PANTOPRAZOLE 40MG INJ (PROTONIX) (C9113) IV SCH (13:57)
[2018-11-05] MEDS ORDERED: BISACODYL 5 MG TAB PO ONE (18:00)
[2018-11-05 20:40] LABS: HEMATOCRIT 32.7 % (36.0-47.0); HEMOGLOBIN 10.6 g/dl (12.0-15.5)
[2018-11-05] MEDS: rOPINIRole 0.25 MG TAB(REQUIP) PO SCH (21:15)
[2018-11-05] MEDS: VERAPAMIL 120 MG SR TAB PO SCH (21:15)
[2018-11-05] MEDS: DIGOXIN 0.125 MG TAB PO SCH (21:15)
[2018-11-05] MEDS: PRAVASTATIN 20 MG TAB PO SCH (21:15)
[2018-11-05] MEDS: FUROSEMIDE 10MG PER 1/2 TABLET PO SCH (21:16)
[2018-11-05] MEDS: VITAMIN D 1,000 INTERNATIONAL UNITS TABLET PO SCH (21:16)
[2018-11-06 03:38] LABS: HEMATOCRIT 33.2 % (36.0-47.0); HEMOGLOBIN 10.6 g/dl (12.0-15.5); MEAN CORPUSCULAR HEMOGLOBIN 31.2 pg (27.0-33.0); MEAN CORPUSCULAR HGB CONC 31.9 g/dl (32.0-36.5); MEAN CORPUSCULAR VOLUME 97.6 fl (80.0-96.0); PLATELET COUNT, AUTOMATED 183 10^3/uL (150-450); WHITE BLOOD COUNT 11.5 10^3/uL (4.0-10.0)
[2018-11-06 04:00] VITALS: BP 167/72
[2018-11-06 04:00] LABS: CALCIUM LEVEL 8.3 MG/DL (8.8-10.2); CREATININE FOR GFR 1.14 MG/DL (0.55-1.30); GLOMERULAR FILTRATION RATE 48.1 (>32); POTASSIUM SERUM 4.1 MEQ/L (3.5-5.1)
[2018-11-06 04:15] VITALS: BP 152/60
[2018-11-06 07:57] VITALS: BP 163/73
[2018-11-06] MEDS ORDERED: ACETAMINOPHEN *IV* 650 MG in APPROPRIATE DILUENT 1 EA IV PRN (09:00)
[2018-11-06] MEDS ORDERED: ACETAMINOPHEN *IV* 1,000 MG IV ONE ×2 (10:00)
[2018-11-06 12:00] VITALS: BP 116/57
[2018-11-06] MEDS: PANTOPRAZOLE 40MG INJ (PROTONIX) (C9113) IV SCH (13:34)
--- NOTE | 2018-11-06 13:48 | IPNPDOC ---
Date Seen The patient was seen on 11/06/18. Progress Note SUBJECTIVE: Hemoglobin improved. She did fever 100.9 this morning. Slight tachycardia with activity or resolution with rest. Will obtain UA and blood culture. Patient denies of any acute distress chest pain, shortness of breath, dizziness, probably urination, or diarrhea. Patient also denied of any abdominal pain this morning. Patient drank bowel prep for colonoscopy and endoscopy later today. Patient has multiple outpatient appointment tomorrow including with vascular surgery for angiogram which she missed last year due to breaking her hip. Staff to notify appropriate offices to inform patient unable to make appointment. Patient unable to undergo endoscopy study due to tachycardia. Cause unknown at this time. Vital stable other than tachycardia but patient very anxious about undergoing endoscopy study earlier today. As per staff patient plan for angiogram of her left leg tomorrow. Unable to reach out to vascular to confirm they want official consult, will attempt again. We will resume diet and workup tachycardia and treatment prior to another attempt at colonoscopy. OBJECTIVE PHYSICAL EXAMINATION: VITAL SIGNS: Please see below GENERAL APPEARANCE: Resting comfortably HEENT: Normocephalic, PERRLA, Mucous moist, CARDIOVASCULAR: S1,S2, pulse present, regularly, regular LUNGS: Equal air entry b/l, no wheezes or crackle ABDOMEN: Soft, BS present, no tenderness, no guarding, no abdominal pain GENITOURINARY: No Ware EXTREMITIES: B/L no edema, capillary refill present SKIN: Warm, No fever during my visit NEUROLOGICAL: Cranial nerves grossly intact PSYCHIATRIC: Normal mood and affect for current situation LABORATORY DATA, IMAGING STUDIES, MICROBIOLOGY: Please see below. 88-year-old female was in a few past medical history of COPD not oxygen dependent, hypertension, hyperlipidemia, chronic kidney disease, peripheral vascular disease, aortic abdominal aneurysm, history of diverticulosis and colon cancer status post resection who is presenting complaining of nonpainful rectal bleeding. Tachycardia workup -tele -echo ordered -cardiac enzymes negative, BNP high-will give lasix iv once and resume home po dose tomorrow -thyroid profile -ekg: sinus tachycardia, s/p iv metoprolol and will give verapamil early with vital monitoring Fever this morning, no clinical complaint of shortness of breath, cough, abdominal pain, dysuria -Patient on room air and without clinical signs, will not order checks x-ray. We will Obtain chest x-ray abdominal x-ray according to clinical findings. -UA ordered and await collection -Blood culture: Pending Rectal bleeding -History of diverticulosis 2011 and colon cancer status post resection 1991 -No NSAID other than baby aspirin, no alcohol consumption, no anticoagulant other than baby aspirin -No history of hemorrhoid -Serial H&H, transfuse red blood cell transfusion as needed -Consult with Dr. Kevin berry grower for endoscopy evaluation -Occult stool negative -IV Protonix empirically -EGD planned -Colonoscopy planned but unable due to tachycardia COPD not oxygen dependent -Respiratory treatment as needed Patient on digoxin, resume Hypertension, resume home regimen verapamil Hyperlipidemia, resume home regimen statin Chronic kidney disease, resume home regimen furosemide and monitor renal function and volume status Peripheral vascular disease, aortic abdominal aneurysm, hold aspirin for now and patient to follow-up with Dr. Zeng as outpatient DVT prophylaxis with SCD. VS, I&O, 24H, Fishbone Vital Signs/I&O Vital Signs Date Time Temp Pulse Resp B/P (MAP) Pulse Ox O2 Delivery O2 Flow Rate FiO2 11/06/18 12:00 98.4 114 19 116/57 (76) 93 11/04/18 12:45 Room Air I&O- Last 24 Hours up to 6 AM 11/06/18 06:00 Intake Total 2380 ml Output Total 1450 ml Balance 930 ml Laboratory Data 24H LABS Laboratory Tests 2 11/06/18 03:10: Nucleated Red Blood Cells % (auto) 0.0, Anion Gap 4L, Glomerular Filtration Rate 48.1, Blood Urea Nitrogen 20H, Creatinine 1.14, Sodium Level 144, Potassium Level 4.1, Chloride Level 112H, Carbon Dioxide Level 28, Calcium Level 8.3L CBC/BMP Laboratory Tests 11/05/18 20:31 11/06/18 03:10 Red Blood Count 3.40 L, Mean Corpuscular Volume 97.6 H, Mean Corpuscular Hemoglobin 31.2, Mean Corpuscular Hemoglobin Concent 31.9 L, Red Cell Distribution Width 15.8 H, Calcium Level 8.3 L Microbiology Microbiology 11/06/18 Blood Culture, Received Pending 11/04/18 Stool Occult Blood (ENRIQUE) - Final, Complete SUSAN GOLDEN MD November 06, 2018 13:48
--- NOTE | 2018-11-06 14:44 | IPNPDOC ---
Date Seen The patient was seen on 11/06/18. Progress Note Interval history: Patient was noted to have fluctuating heart rates from 100 -- 150 beats/ min in OPP. ( unclear if patient is going to A.fib with rapid ventricular rate). So after reviewing with the anesthesia, the procedure was cancelled because of the same. Patient is educated in detail due to the acute change in heart rate, patient will require further work up on the floor and when she is stable will schedule the procedure again. Patient denies any overt active bleeding with bowel prep and also Hemoglobin is stable. So at this time the risk of anesthesia and procedure outweighs the benefits and so the procedure is cancelled. Recommendations: Work up and management of tachycardia as per the hospitalist. Recall GI when patient is medically cleared for the Colonoscopy. NO overt active GI bleeding at this time. GI signing off at this time. If patient is being discharged please give follow up with Dr. Márquez (Patients primary surgeon who did last Colonoscopy) in 1-2 weeks for elective Colonoscopy. Plan of care discussed with floor team and patient. A-FIB/CHADSVASC A-FIB History Current/History of A-Fib/PAF?: No VS, I&O, 24H, Fishbone Vital Signs/I&O Vital Signs Date Time Temp Pulse Resp B/P (MAP) Pulse Ox O2 Delivery O2 Flow Rate FiO2 11/06/18 12:00 98.4 114 19 116/57 (76) 93 11/04/18 12:45 Room Air I&O- Last 24 Hours up to 6 AM 11/06/18 05:59 Intake Total 2380 ml Output Total 1450 ml Balance 930 ml Laboratory Data 24H LABS Laboratory Tests 2 11/06/18 03:10: Nucleated Red Blood Cells % (auto) 0.0, Anion Gap 4L, Glomerular Filtration Rate 48.1, Blood Urea Nitrogen 20H, Creatinine 1.14, Sodium Level 144, Potassium Level 4.1, Chloride Level 112H, Carbon Dioxide Level 28, Calcium Level 8.3L CBC/BMP Laboratory Tests 11/05/18 20:31 11/06/18 03:10 Red Blood Count 3.40 L, Mean Corpuscular Volume 97.6 H, Mean Corpuscular Hemoglo bin 31.2, Mean Corpuscular Hemoglobin Concent 31.9 L, Red Cell Distribution Width 15.8 H, Calcium Level 8.3 L Microbiology Microbiology 11/06/18 Blood Culture, Received Pending 11/04/18 Stool Occult Blood (ENRIQUE) - Final, Complete ANNA QUEZADA MD November 06, 2018 14:44
[2018-11-06] MEDS ORDERED: METOPROLOL 5 MG/5 ML VIAL IV STA (15:38)
[2018-11-06] MEDS ORDERED: ACETAMINOPHEN TAB 650MG DOSE (2X325MG) PO PRN (16:00)
[2018-11-06] MEDS: VERAPAMIL 120 MG SR TAB PO SCH (18:46)
[2018-11-06 18:49] LABS: FREE THYROXINE INDEX 2.8 % (1.3-4.8); MB/CK RELATIVE INDEX 2.08 (< OR =4); THYROID STIMULATING HORMONE 1.01 uIU/ML (0.358-3.740); THYROXINE (T4) 8.3 UG/DL (4.5-12.0); TROPONIN I 0.02 NG/ML (< 0.10)
--- NOTE | 2018-11-06 18:53 | ECGEPIP ---
Stationary ECG Study [facility] Test Date: 2018-11-06 Pat Name: ANDERSON MONTAGUE Department: Room: [place] [address] Gender: F Homeowner Association Manager: HEATHER : [id number] Requested By: SUSAN Cardenas Order Number: [id number] Reading MD: Fern Allison Measurements Intervals [place] Rate: 107 P: 75 CO: 189 QRS: 71 QRSD: 72 T: 72 QT: 289 QTc: 387 Interpretive Statements SINUS TACHYCARDIA MINIMAL VOLTAGE CRITERIA FOR LVH, CONSIDER NORMAL VARIANT ABNORMAL RHYTHM ECG SIMILAR TO 01/21/18, PVC'S ARE NO LONGER PRESENT Electronically Signed On 11-06-2018 18:53:15 EDT by Fern Allison
[2018-11-06 19:26] LABS: APPEARANCE, URINE CLEAR (CLEAR); BACTERIA, URINE AUTO NEGATIVE (NEGATIVE); BILIRUBIN, URINE AUTO NEGATIVE (NEGATIVE); BLOOD, URINE BLOOD 1+ (NEGATIVE); COLOR, URINE YELLOW (YELLOW); GLUCOSE, URINE (UA) AUTO NEGATIVE (NEGATIVE); KETONE, URINE AUTO NEGATIVE (NEGATIVE); LEUKOCYTE ESTERASE, URINE AUTO NEGATIVE (NEGATIVE); MUCUS, URINE SMALL (NEGATIVE); NITRITE, URINE AUTO NEGATIVE (NEGATIVE); PROTEIN, URINE AUTO NEGATIVE (NEGATIVE); RBC, URINE AUTO 0 /HPF (0-3); SPECIFIC GRAVITY URINE AUTO 1.014 (1.002-1.035); SQUAMOUS EPITHELIAL CELL UR AU 0 /HPF (0-6); UROBILINOGEN, URINE AUTO 0.2 mg/dL (0.0-2.0); WBC, URINE AUTO 1 /HPF (0-3)
[2018-11-06] MEDS ORDERED: FUROSEMIDE 20 MG/2 ML VIAL (J1940) IV ONE (20:15)
[2018-11-06] MEDS: VITAMIN D 1,000 INTERNATIONAL UNITS TABLET PO SCH (20:32)
[2018-11-06] MEDS: PRAVASTATIN 20 MG TAB PO SCH (20:32)
[2018-11-06] MEDS: rOPINIRole 0.25 MG TAB(REQUIP) PO SCH (20:32)
[2018-11-06] MEDS: DIGOXIN 0.125 MG TAB PO SCH (20:32)
[2018-11-06 23:59] VITALS: BP 100/56
[2018-11-07 00:40] LABS: CK-MB VALUE MASS < 1.0 NG/ML (<3.6); CPK CREATINE PHOSPHOKINASE 39 U/L (26-192); MB/CK RELATIVE INDEX 2.56 (< OR =4); TROPONIN I 0.05 NG/ML (< 0.10)
[2018-11-07 04:00] VITALS: BP 90/52
[2018-11-07 06:03] LABS: HEMATOCRIT 30.8 % (36.0-47.0); MEAN CORPUSCULAR HEMOGLOBIN 31.5 pg (27.0-33.0); MEAN CORPUSCULAR HGB CONC 32.5 g/dl (32.0-36.5); MEAN CORPUSCULAR VOLUME 97.2 fl (80.0-96.0); PLATELET COUNT, AUTOMATED 151 10^3/uL (150-450); RED BLOOD COUNT 3.17 10^6/uL (4.00-5.40); WHITE BLOOD COUNT 8.1 10^3/uL (4.0-10.0)
[2018-11-07 06:16] LABS: CALCIUM LEVEL 8.2 MG/DL (8.8-10.2); CREATININE FOR GFR 1.46 MG/DL (0.55-1.30); GLOMERULAR FILTRATION RATE 36.2 (>32); MB/CK RELATIVE INDEX 3.08 (< OR =4); POTASSIUM SERUM 3.9 MEQ/L (3.5-5.1); TROPONIN I 0.04 NG/ML (< 0.10)
[2018-11-07 08:00] VITALS: BP 106/63
[2018-11-07 12:00] VITALS: BP 126/66
[2018-11-07] MEDS: PANTOPRAZOLE 40MG INJ (PROTONIX) (C9113) IV SCH (14:34)
[2018-11-07 16:00] VITALS: BP 95/75
--- NOTE | 2018-11-07 18:45 | IPNPDOC ---
Date Seen The patient was seen on 11/07/18. Progress Note SUBJECTIVE: Patient reported feeling fine this morning and denies any bleeding. She reported still noticing blood in her stool yesterday but has not since then. Colonoscopy was cancelled yesterday for tachycardia but that had since resolved. She is a bit upset of the cancellation. Denies any particular complaints. Hb relatively unchanged. OBJECTIVE PHYSICAL EXAMINATION: VITAL SIGNS: Please see below. General: No acute distress, Alert Eyes: Normal sclera, EOMI, ERIK HENT: Atraumatic, neck supple, moist mucous membranes Cardiovascular: Normal rate, normal rhythm. Pulmonary: Clear to auscultation b/l, no wheezing GI: Soft, nontender, nondistended Skin: Warm and dry Neuro: CN grossly intact. No focal deficits. Strengths equal b/l. Psych: oriented x 3 LABORATORY DATA, IMAGING STUDIES, MICROBIOLOGY: Please see below. DVT prophylaxis ordered?: SCD (GI bleed) ASSESSMENT AND PLAN: 1. Rectal bleed - hx Diverticulosis with multiple colonoscopies. - GI following. Colonoscopies cancelled 11/06 due to tachycardia. - c/w monitor H/H. Reportedly bleeding had stopped. - Hold any Anticoagulation at this time. Transfuse as needed. - c/w Protonix. - f/u with GI. 2. Tachycardia - Resolved. Cardiac enzymes negative. - Sinus tachycardia. - UA showed no evidence of infection. - f/u blood cultures. 3. COPD - Nebs as needed. 4. PAD - Supposed to get angiogram of L. leg with Dr. Zeng as outpatient but missed appointment. - Will discussed with Dr. Zeng, likely can reschedule as outpatient. Other chronic medical problems: HTN, HLD, CKD, PVD, AAA. - resume home medications. A-FIB/CHADSVASC A-FIB History Current/History of A-Fib/PAF?: No VS, I&O, 24H, Fishbone Vital Signs/I&O Vital Signs Date Time Temp Pulse Resp B/P (MAP) Pulse Ox O2 Delivery O2 Flow Rate FiO2 11/07/18 16:00 97.2 128 20 95/75 (82) 94 11/04/18 12:45 Room Air I&O- Last 24 Hours up to 6 AM 11/07/18 06:00 Intake Total 120 ml Output Total 1450 ml Balance -1330 ml Laboratory Data 24H LABS Laboratory Tests 2 11/06/18 18:38: Urine Appearance CLEAR, Urine Color YELLOW, Urine pH 7.0, Urine Specific [place] 1.014, Urine Protein NEGATIVE, Urine Glucose (UA) NEGATIVE, Urine Ketones NEGATIVE, Urine Urobilinogen 0.2, Urine Bilirubin NEGATIVE, Urine Leukocyte Esterase NEGATIVE, Urine Blood 1+H, Urine Nitrite NEGATIVE, Urine WBC (Auto) 1, Urine RBC (Auto) 0, Urine Hyaline Casts (Auto) 0, Urine Bacteria (Auto) NEGATIVE, Urine Squamous Epithelial Cells 0, Urine Mucus (Auto) SMALL, Urine Sperm (Auto) 11/06/18 23:48: Total Creatine Kinase 39, Creatine Kinase MB < 1.0, Creatine Kinase MB Relative Index 2.56, Troponin I 0.05# 11/07/18 05:37: Total Creatine Kinase 39, Creatine Kinase MB 1.0, Creatine Kinase MB Relative Index 3.08, Troponin I 0.04, Nucleated Red Blood Cells % (auto) 0.0, Anion Gap 9, Glomerular Filtration Rate 36.2, Blood Urea Nitrogen 26H, Creatinine 1.46H, Sodium Level 141, Potassium Level 3.9, Chloride Level 105, Carbon Dioxide Level 27, Calcium Level 8.2L CBC/BMP Laboratory Tests 11/07/18 05:37 Red Blood Count 3.17 L, Mean Corpuscular Volume 97.2 H, Mean Corpuscular Hemoglobin 31.5, Mean Corpuscular Hemoglobin Concent 32.5, Red Cell Distribution Width 15.2 H, Calcium Level 8.2 L, Total Creatine Kinase 39 Microbiology Microbiology 11/06/18 Blood Culture - Preliminary, Resulted No growth after 24 hours . All specim... 11/04/18 Stool Occult Blood (ENRIQUE) - Final, Complete PAUL KOHLER MD November 07, 2018 18:45
[2018-11-07 20:00] VITALS: BP 135/62
--- NOTE | 2018-11-07 20:24 | ECHO ---
DATE OF PROCEDURE: 11/07/2018 REFERRING PHYSICIAN: Dr. Patton INDICATION: Cardiac dysrhythmia. Height 160 cm, weight 55 kg. DIMENSIONS: IVS: 1.1 LV: 2.7 LVPW: 1.1 LA: 2.4 Aorta: 3.8 Mitral E wave velocity: 110 E prime septal: 6.3 E prime lateral: 10.2 IVC: 1.1 FINDINGS: Study is a very limited technical quality with very limited visualization. The patient is in sinus tachycardia with first-degree AV block and frequent atrial ectopy. Left ventricle is relatively normal size. There is hyperdynamic left ventricular (LV) systolic function, I estimate ejection fraction (EF) around 70-75%. Right ventricle was poorly visualized but appears normal. Both atria appear at least mildly enlarged. Aortic valve was poorly seen. It is calcific and there is probably some restriction of leaflet mobility, but I cannot comment on its anatomy due to poor visualization. There are also degenerative abnormalities of mitral valve with mitral annular calcifications but leaflet mobility seems preserved. Tricuspid valve appears normal. Pulmonic valve was not well seen. There is very prominent pericardial fat pad and also small pericardial effusion without any signs of cardiac compression. Aortic root is borderline dilated. Aortic arch and abdominal aorta were not visualized. Inferior vena cava is small caliber and appropriately collapses with respiration indicative of low central venous pressure. Doppler interrogation reveals mild aortic insufficiency and also trivial aortic stenosis with mean gradient only 8 mmHg. Mitral valve is functionally competent. There is trace tricuspid insufficiency. Calculated pulmonary artery pressure is in 30s corresponding to mild pulmonary hypertension. Mitral inflow pattern and tissue Doppler imaging of mitral annulus are nondiagnostic due to fusion of E and A wave on mitral inflow, but Doppler velocities are at least mildly reduced, indicative of at least mild left ventricular diastolic dysfunction. CONCLUSIONS: 1. Study is of limited technical quality. 2. Normal LV size with hyperdynamic LV systolic function and at least grade 1 diastolic dysfunction. 3. Aortic sclerosis resulting in mild stenosis and mild insufficiency. 4. Competent mitral valve. 5. Normal or low central venous pressure but at least mild pulmonary hypertension. 6. Prominent pericardial fat pad and small amount of pericardial effusion. COMMENT: Subacute bacterial endocarditis (SBE) prophylaxis is not recommended.
[2018-11-07] MEDS: VERAPAMIL 120 MG SR TAB PO SCH (20:58)
[2018-11-07] MEDS: rOPINIRole 0.25 MG TAB(REQUIP) PO SCH (20:58)
[2018-11-07] MEDS: DIGOXIN 0.125 MG TAB PO SCH (20:59)
[2018-11-07] MEDS: PRAVASTATIN 20 MG TAB PO SCH (20:59)
[2018-11-07] MEDS: VITAMIN D 1,000 INTERNATIONAL UNITS TABLET PO SCH (20:59)
[2018-11-07] MEDS: FUROSEMIDE 10MG PER 1/2 TABLET PO SCH (21:47)
[2018-11-08 05:47] LABS: HEMATOCRIT 33.5 % (36.0-47.0); HEMOGLOBIN 10.7 g/dl (12.0-15.5); MEAN CORPUSCULAR HEMOGLOBIN 31.4 pg (27.0-33.0); MEAN CORPUSCULAR HGB CONC 31.9 g/dl (32.0-36.5); MEAN CORPUSCULAR VOLUME 98.2 fl (80.0-96.0); PLATELET COUNT, AUTOMATED 166 10^3/uL (150-450); RED BLOOD COUNT 3.41 10^6/uL (4.00-5.40); WHITE BLOOD COUNT 6.2 10^3/uL (4.0-10.0)
[2018-11-08 06:06] LABS: CALCIUM LEVEL 8.3 MG/DL (8.8-10.2); CREATININE FOR GFR 1.46 MG/DL (0.55-1.30); GLOMERULAR FILTRATION RATE 36.2 (>32); POTASSIUM SERUM 3.9 MEQ/L (3.5-5.1)
[2018-11-08 08:00] VITALS: BP 115/57
--- NOTE | 2018-11-08 12:33 | IPNPDOC ---
Date Seen The patient was seen on 11/08/18. Progress Note SUBJECTIVE: Patient reported feeling fine, denies any abdominal discomfort. Reported noticing blood when she wiped overnight but no other episode of bleeding apart from that. OBJECTIVE PHYSICAL EXAMINATION: VITAL SIGNS: Please see below. General: No acute distress, Alert Eyes: Normal sclera, EOMI, ERIK HENT: Atraumatic, neck supple, moist mucous membranes Cardiovascular: Normal rate, normal rhythm. Pulmonary: Clear to auscultation b/l, no wheezing GI: Soft, nontender, nondistended Skin: Warm and dry Neuro: CN grossly intact. No focal deficits. Strengths equal b/l. Psych: oriented x 3 LABORATORY DATA, IMAGING STUDIES, MICROBIOLOGY: Please see below. DVT prophylaxis ordered?: SCD (GI bleed) ASSESSMENT AND PLAN: 1. Rectal bleed - hx Diverticulosis with multiple colonoscopies. - GI following. Colonoscopies cancelled 11/06 due to tachycardia. - c/w monitor H/H. - Hold any Anticoagulation at this time. Transfuse as needed. - c/w Protonix. 2. Tachycardia - Resolved. Cardiac enzymes negative. - Sinus tachycardia. - UA showed no evidence of infection. - Blood cultures NTD. - ECHO noted normal LV size with hyperdynamic systolic dysfunction EF 70-75%. Grade 1 diastolic dysfunction. 3. COPD - Nebs as needed. 4. PAD - Supposed to get angiogram of L. leg with Dr. Zeng as outpatient but missed appointment. - Discussed with Dr. Zeng, may do anigogram as inpatient in the next day or two if patient is stable, when kidney functions improve. 5. LOUIE - Likely 2/2 volume loss from GI bleed. - Hb stable. Will trans as needed with gentle hydration. Other chronic medical problems: HTN, HLD, CKD, PVD, AAA. - resume home medications. A-FIB/CHADSVASC A-FIB History Current/History of A-Fib/PAF?: No VS, I&O, 24H, Fishbone Vital Signs/I&O Vital Signs Date Time Temp Pulse Resp B/P (MAP) Pulse Ox O2 Delivery O2 Flow Rate FiO2 11/08/18 08:00 97.6 79 20 115/57 (76) 93 11/04/18 12:45 Room Air I&O- Last 24 Hours up to 6 AM 11/08/18 06:00 Intake Total 780 ml Output Total 700 ml Balance 80 ml Laboratory Data 24H LABS Laboratory Tests 2 11/08/18 05:10: Nucleated Red Blood Cells % (auto) 0.0, Anion Gap 8, Glomerular Filtration Rate 36.2, Blood Urea Nitrogen 41#H, Creatinine 1.46H, Sodium Level 142, Potassium Level 3.9, Chloride Level 107, Carbon Dioxide Level 27, Calcium Level 8.3L CBC/BMP Laboratory Tests 11/08/18 05:10 Red Blood Count 3.41 L, Mean Corpuscular Volume 98.2 H, Mean Corpuscular Hemoglobin 31.4, Mean Corpuscular Hemoglobin Concent 31.9 L, Red Cell Distribution Width 15.0 H, Calcium Level 8.3 L Microbiology Microbiology 11/06/18 Blood Culture - Preliminary, Resulted No Growth after 48 hours. All Specime... 11/04/18 Stool Occult Blood (ENRIQUE) - Final, Complete PAUL KOHLER MD November 08, 2018 12:33
[2018-11-08] MEDS: NS 1,000 ML IV SCH ×2 (13:10→21:27)
[2018-11-08] MEDS: PANTOPRAZOLE 40MG INJ (PROTONIX) (C9113) IV SCH (13:56)
[2018-11-08 14:20] VITALS: BP 134/59
[2018-11-08] MEDS: VERAPAMIL 120 MG SR TAB PO SCH (21:24)
[2018-11-08] MEDS: rOPINIRole 0.25 MG TAB(REQUIP) PO SCH (21:25)
[2018-11-08] MEDS: PRAVASTATIN 20 MG TAB PO SCH (21:25)
[2018-11-08] MEDS: VITAMIN D 1,000 INTERNATIONAL UNITS TABLET PO SCH (21:25)
[2018-11-08] MEDS: FUROSEMIDE 10MG PER 1/2 TABLET PO SCH (21:25)
[2018-11-08] MEDS: DIGOXIN 0.125 MG TAB PO SCH (21:26)
[2018-11-08 22:00] VITALS: BP 112/66
[2018-11-09 06:00] VITALS: BP 115/60
[2018-11-09 06:33] LABS: HEMATOCRIT 30.6 % (36.0-47.0); HEMOGLOBIN 9.8 g/dl (12.0-15.5); MEAN CORPUSCULAR HEMOGLOBIN 31.6 pg (27.0-33.0); MEAN CORPUSCULAR VOLUME 98.7 fl (80.0-96.0); PLATELET COUNT, AUTOMATED 160 10^3/uL (150-450); WHITE BLOOD COUNT 5.2 10^3/uL (4.0-10.0)
[2018-11-09 07:02] LABS: CALCIUM LEVEL 7.4 MG/DL (8.8-10.2); CREATININE FOR GFR 1.13 MG/DL (0.55-1.30); GLOMERULAR FILTRATION RATE 48.6 (>32); POTASSIUM SERUM 3.9 MEQ/L (3.5-5.1)
--- NOTE | 2018-11-09 12:00 | IPNPDOC ---
Date Seen The patient was seen on 11/09/18. Progress Note SUBJECTIVE: Patient reported still have some blood when she wiped rectally but no significant bleeding otherwise. Slight drop in Hb today. She denies any abdominal discomfort or any other complaints. OBJECTIVE PHYSICAL EXAMINATION: VITAL SIGNS: Please see below. General: No acute distress, Alert Eyes: Normal sclera, EOMI, ERIK HENT: Atraumatic, neck supple, moist mucous membranes Cardiovascular: Normal rate, normal rhythm. Pulmonary: Clear to auscultation b/l, no wheezing GI: Soft, nontender, nondistended Skin: Warm and dry Neuro: CN grossly intact. No focal deficits. Strengths equal b/l. Psych: oriented x 3 LABORATORY DATA, IMAGING STUDIES, MICROBIOLOGY: Please see below. DVT prophylaxis ordered?: SCD (GI bleed) ASSESSMENT AND PLAN: 1. Rectal bleed - hx Diverticulosis with multiple colonoscopies. - GI evaluated. Colonoscopies cancelled 11/06 due to tachycardia. - c/w monitor H/H. - Hold any Anticoagulation at this time. Transfuse as needed. - c/w Protonix. - No significant bleeding but still has blood with bowel movement when wiping. Will discuss with GI and see if she needs to be scope as inpatient or can be done outpatient since her Hb had been relatively stable with no significant bleed. 2. Tachycardia - Resolved. Cardiac enzymes negative. - Sinus tachycardia. - UA showed no evidence of infection. - Blood cultures NTD. - ECHO noted normal LV size with hyperdynamic systolic dysfunction EF 70-75%. Grade 1 diastolic dysfunction. 3. COPD - Nebs as needed. 4. PAD - Supposed to get angiogram of L. leg with Dr. Zeng as outpatient but missed appointment. - Discussed with Dr. Zeng, may do angiogram as inpatient in the next day or two. - Kidney function improved today with IVF. 5. LOUIE - Likely 2/2 volume loss from GI bleed. - Hb stable. - Kidney functions improving with IVF. Other chronic medical problems: HTN, HLD, CKD, PVD, AAA. - resume home medications. A-FIB/CHADSVASC A-FIB History Current/History of A-Fib/PAF?: No VS, I&O, 24H, Fishbone Vital Signs/I&O Vital Signs Date Time Temp Pulse Resp B/P (MAP) Pulse Ox O2 Delivery O2 Flow Rate FiO2 11/09/18 06:00 98.4 79 20 115/60 (78) 92 11/04/18 12:45 Room Air I&O- Last 24 Hours up to 6 AM 11/09/18 06:00 Intake Total 550 ml Output Total 1300 ml Balance -750 ml Laboratory Data 24H LABS Laboratory Tests 2 11/09/18 06:11: Nucleated Red Blood Cells % (auto) 0.0, Anion Gap 6L, Glomerular Filtration Rate 48.6, Blood Urea Nitrogen 29H, Creatinine 1.13, Sodium Level 144, Potassium Level 3.9, Chloride Level 110H, Carbon Dioxide Level 28, Calcium Level 7.4L CBC/BMP Laboratory Tests 11/09/18 06:11 Red Blood Count 3.10 L, Mean Corpuscular Volume 98.7 H, Mean Corpuscular Hemoglobin 31.6, Mean Corpuscular Hemoglobin Concent 32.0, Red Cell Distribution Width 15.1 H, Calcium Level 7.4 L Microbiology Microbiology 11/06/18 Blood Culture - Preliminary, Resulted No Growth after 72 hours. All specime... 11/04/18 Stool Occult Blood (ENRIQUE) - Final, Complete PAUL KOHLER MD November 09, 2018 12:00
[2018-11-09 14:00] VITALS: BP 154/72
[2018-11-09] MEDS: PANTOPRAZOLE 40MG INJ (PROTONIX) (C9113) IV SCH (14:29)
[2018-11-09] MEDS: NS 1,000 ML IV SCH (15:54)
[2018-11-09] MEDS: DIGOXIN 0.125 MG TAB PO SCH (20:40)
[2018-11-09] MEDS: FUROSEMIDE 10MG PER 1/2 TABLET PO SCH (20:41)
[2018-11-09] MEDS: rOPINIRole 0.25 MG TAB(REQUIP) PO SCH (20:41)
[2018-11-09] MEDS: VITAMIN D 1,000 INTERNATIONAL UNITS TABLET PO SCH (20:41)
[2018-11-09] MEDS: VERAPAMIL 120 MG SR TAB PO SCH (20:41)
[2018-11-09] MEDS: PRAVASTATIN 20 MG TAB PO SCH (20:41)
[2018-11-09 22:00] VITALS: BP 132/60
[2018-11-10] MEDS: NS 1,000 ML IV SCH ×2 (03:45→15:20)
[2018-11-10 06:00] VITALS: BP 114/56
[2018-11-10 06:35] LABS: HEMATOCRIT 30.5 % (36.0-47.0); HEMOGLOBIN 9.6 g/dl (12.0-15.5); MEAN CORPUSCULAR HEMOGLOBIN 30.6 pg (27.0-33.0); MEAN CORPUSCULAR HGB CONC 31.5 g/dl (32.0-36.5); MEAN CORPUSCULAR VOLUME 97.1 fl (80.0-96.0); PLATELET COUNT, AUTOMATED 172 10^3/uL (150-450); RED BLOOD COUNT 3.14 10^6/uL (4.00-5.40)
[2018-11-10] MEDS ORDERED: fentaNYL 100 MCG/2 ML INJECTION (J3010) As Ordered ONE (06:39)
[2018-11-10] MEDS ORDERED: HEPARIN 1,000 UNITS/ML 10ML VIAL (FOR RADIOLOGY& DIALYSIS ONLY) As Ordered ONE (06:39)
[2018-11-10] MEDS ORDERED: diphenhydrAMINE INJ 50MG/ML VIAL (J1200) As Ordered ONE (06:39)
[2018-11-10] MEDS ORDERED: MIDAZOLAM INJ 2 MG/2 ML VIAL (J2250) As Ordered ONE (06:39)
[2018-11-10] MEDS ORDERED: LIDOCAINE 2% MDV 20 ML VIAL As Ordered ONE (06:39)
[2018-11-10] MEDS ORDERED: BUPIVACAINE HCL 0.5% 10 ML VIAL As Ordered ONE (06:39)
[2018-11-10] MEDS ORDERED: ISOVUE-300 61% 100ML VIAL (Q9967) As Ordered ONE (06:40)
[2018-11-10 06:55] LABS: CALCIUM LEVEL 8.7 MG/DL (8.8-10.2); CREATININE FOR GFR 1.16 MG/DL (0.55-1.30); GLOMERULAR FILTRATION RATE 47.2 (>32); POTASSIUM SERUM 3.9 MEQ/L (3.5-5.1)
[2018-11-10 10:40] VITALS: BP 160/74
--- NOTE | 2018-11-10 11:28 | CR.PDOC ---
General Date of Consultation: November 10, 2018 Consultation CONSULTATION REPORT FOR: REASON FOR CONSULTATION: PAD/PVD Vascular surgery: Dr. Zeng HPI: 88 year old F admitted for rectal bleed, GI/medicine following. Vascular surgery was consulted for history of PVD/PAD as patient had been scheduled for lower extremity angiogram. Denies any fevers, chills, weakness, fatigue, Headache, Chest Pain, Shortness of breath, cough, palpitations, abdominal pain, N/V/D or changes in bowel or bladder habits. PAST MEDICAL HISTORY: COPD and not oxygen dependent Hypertension Dyslipidemia Chronic kidney disease Peripheral vascular disease Abdominal aortic aneurysm, last ultrasound 4.2 PAST SURGICAL HISTORY: Colon Resection Tonsillectomy Cataract surgery SOCIAL HISTORY: Former smoker quit in 2005. Denies any alcohol use. Denies of any IV drug abuse FAMILY HISTORY: Reviewed and noncontributory ROS: As noted in HPI, otherwise 11pt ROS of systems reviewed and unremarkable. PE: GEN: 88yoF, appears stated age. No acute distress. Alert and oriented x 3. HEENT: Normocephalic, atraumatic. Sclera are nonicteric. Conjunctiva without injection. Moist mucous membranes. CHEST: Regular rate and rhythm, +S1, +S2 LUNGS: Clear to auscultation bilaterally. Breathing appears symmetric and easy. ABD: Round, soft, non-tender, non-distended. +Bowel sounds throughout. EXT: No lower extremity edema appreciated. SKIN: [place], dry, warm. No rashes. NEURO: Alert and oriented x 3. No focal deficits appreciated. A&P: 88 year old F admitted for rectal bleed, GI/medicine following. Vascular surgery was consulted for history of PVD/PAD as patient had been scheduled for lower extremity angiogram. 1. PAD/PVD. Plan is for LLE angiogram with Dr Zeng this AM. ASA on hold related to recent history of GI bleeding. 2. H/O AAA. Pt is asymptomatic. Aortic US pending. DVT prophylaxis. Thank you for your consultation. We will continue to follow along with you. Vital Signs/I&O Vital Signs Date Time Temp Pulse Resp B/P (MAP) Pulse Ox O2 Delivery O2 Flow Rate FiO2 11/10/18 10:40 96.9 79 20 160/74 (102) 97 11/04/18 12:45 Room Air I&O- Last 24 Hours up to 6 AM 11/10/18 05:59 Intake Total 2960 ml Output Total 1625 ml Balance 1335 ml Laboratory Data Labs 24H Laboratory Tests 2 11/10/18 06:07: Nucleated Red Blood Cells % (auto) 0.0, Anion Gap 7L, Glomerular Filtration Rate 47.2, Blood Urea Nitrogen 25H, Creatinine 1.16, Sodium Level 143, Potassium [place] 3.9, Chloride Level 110H, Carbon Dioxide Level 26, Calcium Level 8.7#L CBC/BMP Laboratory Tests 11/10/18 06:07 Red Blood Count 3.14 L, Mean Corpuscular Volume 97.1 H, Mean Corpuscular Hemoglobin 30.6, Mean Corpuscular Hemoglobin Concent 31.5 L, Red Cell Distribution Width 14.8 H, Calcium Level 8.7 #L Microbiology Microbiology 11/06/18 Blood Culture - Preliminary, Resulted No Growth after 72 hours. All specime... 11/04/18 Stool Occult Blood (ENRIQUE) - Final, Complete Allergies Coded Allergies: Penicillins (Verified Allergy, Intermediate, hives, 11/04/18) Home Medications Scheduled Aspirin (Aspirin EC) 81 Mg Tablet.dr, 81 MG PO QHS, (Reported) Cholecalciferol (Vitamin D3) (Vitamin D3) 1,000 Unit Tablet, 1,000 UNIT PO QHS, (Reported) Digoxin (Digoxin) 125 Mcg Tablet, 125 MCG PO QHS, (Reported) Furosemide (Furosemide) 20 Mg Tablet, 10 MG PO QHS, (Reported) Pravastatin Sodium (Pravastatin Sodium) 40 Mg Tab, 40 MG PO QHS, (Reported) Ropinirole HCl (Ropinirole HCl) 0.5 Mg Tablet, 0.5 MG PO QHS, (Reported) Verapamil HCl (Verapamil ER) 240 Mg Tablet.er, 240 MG PO QHS, (Reported) Scheduled PRN Betamethasone Dip (Betamethasone Dipropionate) 1 Dose/15 Gm Cream, 1 DOSE TOP BID PRN for PSORIASIS, (Reported) APPLIED TO BACK OF NECK/SCALP Sherrell Morrow November 10, 2018 11:28
[2018-11-10 11:40] VITALS: BP 160/70
[2018-11-10] MEDS: PANTOPRAZOLE 40MG INJ (PROTONIX) (C9113) IV SCH (13:12)
--- NOTE | 2018-11-10 13:19 | REP ---
Abdominal aortic sonography: History: 4.2 cm abdominal aortic aneurysm. Comparison sonography December 23, 2017. Findings: There are two aneurysmal segments of the abdominal aorta, one at mid aortic level and the other distally. The mid or more proximal aneurysmal segment measures 4.0 x 3.2 x 4.2 cm in AP by transverse by longitudinal dimension respectively. The distal aortic aneurysm measures 4.8 x 4.8 x 4.7 cm in respective dimension. The aorta narrows between the two aneurysmal segments to a normal caliber. Aortic diameters at the diaphragmatic hiatus are 3.0 x 2.8 cm AP by transverse. At the renal artery origin level these diameters are 3.2 x 4.2 cm. The distal aorta below the distal aneurysm measures 2.4 x 2.1 cm. Right and left common iliac arteries are not involved measuring 0.9 cm each in AP dimension. Impression: Two fusiform abdominal aortic aneurysmal segments one proximal to mid and the other distal. The distal aneurysmal segment is a larger measuring 4.8 cm in AP dimension, previously 4.0 cm. Electronically Signed by Alejo Salinas MD 11/10/2018 06:28 P
[2018-11-10 14:00] VITALS: BP 163/73
--- NOTE | 2018-11-10 16:08 | IPNPDOC ---
Date Seen The patient was seen on 11/10/18. Progress Note SUBJECTIVE: Patient reported feeling fine today. Reported noticing blood in her stool last night but had not any bleeding as of this morning. Hb about the same as yesterday. s/p Angiogram with Dr. Zeng today. OBJECTIVE PHYSICAL EXAMINATION: VITAL SIGNS: Please see below. General: No acute distress, Alert Eyes: Normal sclera, EOMI, ERIK HENT: Atraumatic, neck supple, moist mucous membranes Cardiovascular: Normal rate, normal rhythm. Pulmonary: Clear to auscultation b/l, no wheezing GI: Soft, nontender, nondistended Skin: Warm and dry Neuro: CN grossly intact. No focal deficits. Strengths equal b/l. Psych: oriented x 3 LABORATORY DATA, IMAGING STUDIES, MICROBIOLOGY: Please see below. DVT prophylaxis ordered?: SCD (GI bleed) ASSESSMENT AND PLAN: 1. Rectal bleed - hx Diverticulosis with multiple colonoscopies. - GI evaluated. Colonoscopies cancelled 11/06 due to tachycardia. - c/w monitor H/H. - Hold any Anticoagulation at this time. Transfuse as needed. - c/w Protonix. - No significant bleeding but still has blood with bowel movement when wiping. - Planned for repeat Colonoscopy on Tuesday as patient HR is back to normal and HD stable. 2. Tachycardia - Resolved. Cardiac enzymes negative. - Sinus tachycardia. - UA showed no evidence of infection. - Blood cultures NTD. - ECHO noted normal LV size with hyperdynamic systolic dysfunction EF 70-75%. Grade 1 diastolic dysfunction. 3. COPD - Nebs as needed. 4. PAD/AAA - Supposed to get angiogram of L. leg with Dr. Zeng as outpatient but missed appointment. - Angiogram completed with Dr. Zeng 11/10/18 and US. 5. LOUIE - Likely 2/2 volume loss from GI bleed. - Hb stable. - Kidney functions improving with IVF. Other chronic medical problems: HTN, HLD, CKD, PVD, AAA. - resume home medications. A-FIB/CHADSVASC A-FIB History Current/History of A-Fib/PAF?: No VS, I&O, 24H, Fishbone Vital Signs/I&O Vital Signs Date Time Temp Pulse Resp B/P (MAP) Pulse Ox O2 Delivery O2 Flow Rate FiO2 11/10/18 14:00 96.9 81 19 163/73 (103) 99 11/04/18 12:45 Room Air I&O- Last 24 Hours up to 6 AM 11/10/18 06:00 Intake Total 2960 ml Output Total 1625 ml Balance 1335 ml Laboratory Data 24H LABS Laboratory Tests 2 11/10/18 06:07: Nucleated Red Blood Cells % (auto) 0.0, Anion Gap 7L, Glomerular Filtration Rate 47.2, Blood Urea Nitrogen 25H, Creatinine 1.16, Sodium Level 143, Potassium Level 3.9, Chloride Level 110H, Carbon Dioxide Level 26, Calcium Level 8.7#L CBC/BMP Laboratory Tests 11/10/18 06:07 Red Blood Count 3.14 L, Mean Corpuscular Volume 97.1 H, Mean Corpuscular Hem oglobin 30.6, Mean Corpuscular Hemoglobin Concent 31.5 L, Red Cell Distribution Width 14.8 H, Calcium Level 8.7 #L Microbiology Microbiology 11/06/18 Blood Culture - Preliminary, Resulted No Growth after 72 hours. All specime... 11/04/18 Stool Occult Blood (ENRIQUE) - Final, Complete PAUL KOHLER MD November 10, 2018 16:08
[2018-11-10] MEDS: rOPINIRole 0.25 MG TAB(REQUIP) PO SCH (20:02)
[2018-11-10] MEDS: VERAPAMIL 120 MG SR TAB PO SCH (20:02)
[2018-11-10] MEDS: DIGOXIN 0.125 MG TAB PO SCH (20:03)
[2018-11-10] MEDS: VITAMIN D 1,000 INTERNATIONAL UNITS TABLET PO SCH (20:04)
[2018-11-10] MEDS: FUROSEMIDE 10MG PER 1/2 TABLET PO SCH (20:04)
[2018-11-10] MEDS: PRAVASTATIN 20 MG TAB PO SCH (20:04)
[2018-11-10 22:00] VITALS: BP 148/70
[2018-11-11] MEDS: NS 1,000 ML IV SCH (04:34)
[2018-11-11 05:56] LABS: HEMATOCRIT 29.8 % (36.0-47.0); HEMOGLOBIN 9.6 g/dl (12.0-15.5); MEAN CORPUSCULAR HGB CONC 32.2 g/dl (32.0-36.5); MEAN CORPUSCULAR VOLUME 99.3 fl (80.0-96.0); PLATELET COUNT, AUTOMATED 162 10^3/uL (150-450); WHITE BLOOD COUNT 7.2 10^3/uL (4.0-10.0)
[2018-11-11 06:00] VITALS: BP 136/60
[2018-11-11 06:25] LABS: CALCIUM LEVEL 7.6 MG/DL (8.8-10.2); CREATININE FOR GFR 1.14 MG/DL (0.55-1.30); GLOMERULAR FILTRATION RATE 48.1 (>32); POTASSIUM SERUM 3.7 MEQ/L (3.5-5.1)
--- NOTE | 2018-11-11 10:46 | IPNPDOC ---
Date Seen The patient was seen on 11/11/18. Progress Note SUBJECTIVE: Patient states that she feels well today. Has had her angiogram yesterday. Reported no bleeding yesterday but unsure about today yet as she has not had a bowel movement. Hb remained unchanged. OBJECTIVE PHYSICAL EXAMINATION: VITAL SIGNS: Please see below. General: No acute distress, Alert Eyes: Normal sclera, EOMI, ERIK HENT: Atraumatic, neck supple, moist mucous membranes Cardiovascular: Normal rate, normal rhythm. Pulmonary: Clear to auscultation b/l, no wheezing GI: Soft, nontender, nondistended Skin: Warm and dry Neuro: CN grossly intact. No focal deficits. Strengths equal b/l. Psych: oriented x 3 LABORATORY DATA, IMAGING STUDIES, MICROBIOLOGY: Please see below. DVT prophylaxis ordered?: SCD (GI bleed) ASSESSMENT AND PLAN: 1. Rectal bleed - hx Diverticulosis with multiple colonoscopies. - GI evaluated. Colonoscopies cancelled 11/06 due to tachycardia. - c/w monitor H/H. - Hold any Anticoagulation at this time. Transfuse as needed. - c/w Protonix. - Planned for repeat Colonoscopy on Tuesday as patient HR is back to normal and HD stable. - No bleeding yesterday, will monitor today and will discuss whether she still wants the colonoscopy on Tuesday tomorrow. 2. Tachycardia - Resolved. Cardiac enzymes negative. - Sinus tachycardia. - UA showed no evidence of infection. - Blood cultures NTD. - ECHO noted normal LV size with hyperdynamic systolic dysfunction EF 70-75%. Grade 1 diastolic dysfunction. 3. COPD - Nebs as needed. 4. PAD/AAA - Supposed to get angiogram of L. leg with Dr. Zeng as outpatient but missed appointment. - Angiogram completed with Dr. Zeng 11/10/18 and US. 5. LOUIE - Likely 2/2 volume loss from GI bleed. - Resolved with IVF. Other chronic medical problems: HTN, HLD, CKD, PVD, AAA. - resume home medications. A-FIB/CHADSVASC A-FIB History Current/History of A-Fib/PAF?: No VS, I&O, 24H, Fishbone Vital Signs/I&O Vital Signs Date Time Temp Pulse Resp B/P (MAP) Pulse Ox O2 Delivery O2 Flow Rate FiO2 11/11/18 06:00 98.7 91 18 136/60 (85) 92 I&O- Last 24 Hours up to 6 AM 11/11/18 06:00 Intake Total 1840 ml Output Total 1600 ml Balance 240 ml Laboratory Data 24H LABS Laboratory Tests 2 11/11/18 05:07: Nucleated Red Blood Cells % (auto) 0.0, Anion Gap 6L, Glomerular Filtration Rate 48.1, Blood Urea Nitrogen 21H, Creatinine 1.14, Sodium Level 140, Potassium Level 3.7, Chloride Level 107, Carbon Dioxide Level 27, Calcium Level 7.6L CBC/BMP Laboratory Tests 11/11/18 05:07 Red Blood Count 3.00 L, Mean Corpuscular Volume 99.3 H, Mean Corpuscular Hemoglobin 32.0, Mean Corpuscular Hemoglobin Concent 32.2, Red Cell Distribution Width 14.6 H, Calcium Level 7.6 L Microbiology Microbiology 11/06/18 Blood Culture - Final, Complete NO GROWTH AFTER 5 DAYS 11/04/18 Stool Occult Blood (ENRIQUE) - Final, Complete PAUL KOHLER MD November 11, 2018 10:46
[2018-11-11 11:00] VITALS: BP 140/64
[2018-11-11 14:00] VITALS: BP 130/63
[2018-11-11 14:13] VITALS: BP 142/64
[2018-11-11] MEDS: PANTOPRAZOLE 40MG INJ (PROTONIX) (C9113) IV SCH (14:40)
[2018-11-11] MEDS: rOPINIRole 0.25 MG TAB(REQUIP) PO SCH (20:01)
[2018-11-11] MEDS: FUROSEMIDE 10MG PER 1/2 TABLET PO SCH (20:01)
[2018-11-11] MEDS: VITAMIN D 1,000 INTERNATIONAL UNITS TABLET PO SCH (20:02)
[2018-11-11] MEDS: DIGOXIN 0.125 MG TAB PO SCH (20:02)
[2018-11-11] MEDS: PRAVASTATIN 20 MG TAB PO SCH (20:02)
[2018-11-11 20:03] VITALS: BP 148/68
[2018-11-11] MEDS: VERAPAMIL 120 MG SR TAB PO SCH (20:03)
[2018-11-11 22:00] VITALS: BP 148/68
[2018-11-12 06:00] VITALS: BP 113/54
--- NOTE | 2018-11-12 09:53 | DS.PDOC ---
Discharge Summary General Date of Admission November 04, 2018 at 12:27 Date of Discharge 11/12/18 Attending Physician: PAUL KOHLER MD Specialist/Consultants Involve: ANNA QUEZADA MD Specialist/Consultants Involve Dr. Zeng Discharge Summary PROCEDURES PERFORMED DURING STAY: Vascular Angiogram ADMITTING DIAGNOSES: 1. Rectal Bleed 2. COPD 3. HTN 4. HLD 5. PAD/PVD 6. CKD 7. AAA DISCHARGE DIAGNOSES: 1. Rectal Bleed 2. COPD 3. HTN 4. HLD 5. PAD/PVD 6. CKD 7. AAA COMPLICATIONS/CHIEF COMPLAINT: Gi Bleed. HISTORY OF PRESENT ILLNESS: "88-year-old female was in a few past medical history of COPD not oxygen dependent, hypertension, hyperlipidemia, chronic kidney disease, peripheral vascular disease, aortic abdominal aneurysm, history of diverticulosis and colon cancer status post resection who is presenting complaining of nonpainful rectal bleeding that started 2 AM. Patient has a history of diverticulosis diagnosed in 2011 via colonoscopy. Patient also has a history of colon Cancer and status post resection in 1991. Patient denies of any trauma and denies of any consumption of excessive NSAID. Patient is on baby aspirin daily only. Patient only takes Tylenol for discomfort. Patient denies of any alcohol use. Patient also denies of any hemorrhoids. She does have a history of peripheral vascular disease and AAA and sees Dr. Zeng. Patient resting comfortably in the emergency room. Patient had a hemoglobin of 11.3 and previously in January 2018 her blood was lower at 8.6. Patient's case was discussed by the ER staff with Dr. Quezada transition coach who recommended serial H&H, when necessary red blood cell transfusion, and plan for endoscopy evaluation on Tuesday." HOSPITAL COURSE: Patient with history of diverticulosis was admitted for rectal bleeding and had 1 unit blood transfusion. Initial plan was for GI to perform colonoscopy. However, patient developed episode of tachycardia prior to procedure and was canceled. Bleeding improved significantly post admission on its own while hemoglobin remained stable. Patient noted only noticing blood when she wiped 2 days prior but had completely resolved. Patient reported feeling well denying any complaints. We'll discharge patient to follow-up with her GI Dr. Márquez within 2 weeks for elective colonoscopy if warranted, otherwise Dr. Quezada would also be happy to see her as outpatient. She was also seen by Dr. Zeng with vascular as inpatient for an angiogram and US for evaluation of her PAD/PVD and AAA because she was supposed to get it as outpatient but ended up being in the hospital instead. DISCHARGE MEDICATIONS: Please see below. ALLERGIES: Please see below. PHYSICAL EXAMINATION ON DISCHARGE: VITAL SIGNS: Please see below. General: No acute distress, Alert Eyes: Normal sclera, EOMI, ERIK HENT: Atraumatic, neck supple, moist mucous membranes Cardiovascular: Normal rate, normal rhythm. Pulmonary: Clear to auscultation b/l, no wheezing GI: Soft, nontender, nondistended Skin: Warm and dry Neuro: CN grossly intact. No focal deficits. Strengths equal b/l. Psych: oriented x 3 LABORATORY DATA: Please see below. IMAGING: Aorta US ACTIVITY: [As tolerated]. DIET: Cardiac diet DISCHARGE PLAN: F/u with PCP within 1 week. F/u with GI Dr. Márquez within 2 weeks for possible elective colonoscopy. DISPOSITION: Home. DISCHARGE INSTRUCTIONS: F/u with PCP within 1 week. F/u with GI Dr. Márquez within 2 weeks for possible elective colonoscopy. ITEMS TO FOLLOWUP ON ON OUTPATIENT: None DISCHARGE CONDITION: [Stable]. TIME SPENT ON DISCHARGE: 35 minutes. Vital Signs/I&Os Vital Signs Date Time Temp Pulse Resp B/P (MAP) Pulse Ox O2 Delivery O2 Flow Rate FiO2 11/12/18 06:00 97.9 67 16 113/54 (73) 93 I&O- Last 24 Hours up to 6 AM 11/12/18 06:00 Intake Total 435 ml Output Total 775 ml Balance -340 ml Microbiology Microbiology 11/06/18 Blood Culture - Final, Complete NO GROWTH AFTER 5 DAYS 11/04/18 Stool Occult Blood (ENRIQUE) - Final, Complete Discharge Medications Scheduled Aspirin (Aspirin EC) 81 Mg Tablet.dr, 81 MG PO QHS, (Reported) Cholecalciferol (Vitamin D3) (Vitamin D3) 1,000 Unit Tablet, 1,000 UNIT PO QHS, (Reported) Digoxin (Digoxin) 125 Mcg Tablet, 125 MCG PO QHS, (Reported) Furosemide (Furosemide) 20 Mg Tablet, 10 MG PO QHS, (Reported) Pravastatin Sodium (Pravastatin Sodium) 40 Mg Tab, 40 MG PO QHS, (Reported) Ropinirole HCl (Ropinirole HCl) 0.5 Mg Tablet, 0.5 MG PO QHS, (Reported) Verapamil HCl (Verapamil ER) 240 Mg Tablet.er, 240 MG PO QHS, (Reported) Scheduled PRN Betamethasone Dip (Betamethasone Dipropionate) 1 Dose/15 Gm Cream, 1 DOSE TOP BID PRN for PSORIASIS, (Reported) APPLIED TO BACK OF NECK/SCALP Allergies Coded Allergies: Penicillins (Verified Allergy, Intermediate, hives, 11/04/18) PAUL KOHLER MD November 12, 2018 09:53
[2018-11-12] MEDS: PANTOPRAZOLE 40MG INJ (PROTONIX) (C9113) IV SCH (13:21)
[2018-11-12] MEDS ORDERED: POLYETHYLENE GLYCOL (MIRALAX) 238GM BOTTLE PO ONE (18:00)
[2018-11-12] MEDS ORDERED: BISACODYL 5 MG TAB PO ONE (18:00)
--- NOTE | 2018-12-02 09:19 | RO ---
DATE OF PROCEDURE: 11/10/2018 ATTENDING SURGEON: Kaley Zeng MD ASSISTANTS: Sharita Kaur and Lilliana Lucero PREOPERATIVE DIAGNOSES: Bilateral lower extremity claudication, left greater than right. Superficial femoral arterial occlusive disease. 4.2 cm abdominal aortic aneurysm. POSTOPERATIVE DIAGNOSES: Bilateral lower extremity claudication, left greater than right. Superficial femoral arterial occlusive disease. 4.2 cm abdominal aortic aneurysm. PROCEDURE: Aortogram, iliofemoral angiogram, selective left common femoral artery catheter placement, selective left superficial femoral artery catheter placement, bilateral femoral cannulation, bilateral common iliac artery angioplasty and stent with 8 x 38 Wallstent postdilated with 7 x 40 mm balloons, right external iliac artery angioplasty and stent with a 10 x 39 Wallstent postdilated with a 7 x 40 mm balloon, bilateral common femoral arteriotomy closure with Mynx closure device. INDICATION: The patient is an 88-year-old female with bilateral lower extremity claudication who will undergo angiography with possible angioplasty, stent, and/or atherectomy. ANESTHESIA: Local with sedation with 2 mg of Versed, 100 mcg of fentanyl, and 20 mL of local Benadryl 50 mg. SEDATION TIME: 07:15 a.m. to 08:06 a.m. for a total of 51 minutes. COMPLICATIONS: None. DRAINS: None. SPECIMENS: None. DESCRIPTION OF PROCEDURE: The patient was taken to the angiography suite, placed supine on the angiography room table, and then prepped and draped in a standard surgical fashion. The right common femoral artery was cannulated, and aortogram was performed showing severe iliac artery disease bilaterally. The left common femoral artery was then cannulated after which the common iliac arteries underwent angioplasty and stenting with 8 x 38 Wallstents postdilated with 7 x 40 balloon. There was residual stenosis in the right external iliac artery, and this was angioplastied with a 10 x 39 Wallstent postdilated with a 7 x 40 balloon. Completion aortogram showed resolution of the stenosis with excellent flow through both iliac arteries. Bilateral Mynx closure devices were used to close the arteriotomies with additional pressure applied for hemostasis. Dressings were then applied. The patient tolerated the procedure well. All instrument, sponge, and needle counts were correct at the end of the case. There were no complications. Dr. Zeng was present for and directed the entire case. The patient was transferred to the holding area and subsequently discharged in stable condition.
== END 2018-11-12 13:33 | disposition home or self-care (01) | DRG 357 ==
LOC: M ED 09:42 → M ED INP 12:27 → M PCU 14:06 → M MSPAV 11-08 14:30
PROVIDERS: ADMIT Internal Medicine; ATTEND Student in an Organized Health Care Education/Training Program
PROC: 047D3DZ Dilation of Left Common Iliac Artery with Intraluminal Device, Percutaneous Approach (ICD-10-PCS; principal; 2018-11-10)
PROC: 047C3DZ Dilation of Right Common Iliac Artery with Intraluminal Device, Percutaneous Approach (ICD-10-PCS; 2018-11-10)
PROC: 047H3DZ Dilation of Right External Iliac Artery with Intraluminal Device, Percutaneous Approach (ICD-10-PCS; 2018-11-10)
PROC: B41G1ZZ Fluoroscopy of Left Lower Extremity Arteries using Low Osmolar Contrast (ICD-10-PCS; 2018-11-10)
PROC: B41F1ZZ Fluoroscopy of Right Lower Extremity Arteries using Low Osmolar Contrast (ICD-10-PCS; 2018-11-10)
DX: K62.5 Hemorrhage of anus and rectum (principal); N17.9 Acute kidney failure, unspecified; J44.9 Chronic obstructive pulmonary disease, unspecified; I12.9 Hypertensive chronic kidney disease with stage 1 through stage 4 chronic kidney disease, or unspecified chronic kidney disease; I71.4 Abdominal aortic aneurysm, without rupture; E78.5 Hyperlipidemia, unspecified; N18.9 Chronic kidney disease, unspecified; K57.30 Diverticulosis of large intestine without perforation or abscess without bleeding; Z85.038 Personal history of other malignant neoplasm of large intestine; Z79.82 Long term (current) use of aspirin; Z79.899 Other long term (current) drug therapy; Z88.0 Allergy status to penicillin; I70.213 Atherosclerosis of native arteries of extremities with intermittent claudication, bilateral legs

== ENCOUNTER → 2018-11-30 | Outpatient (CLI) | payer MEDICARE ==
[~2018-11-30] MED LIST changes: +ASPI81TA27 PO; +FURO20TA2 PO; +ROPI0.5T PO; +VERA24TASA PO; +VITA-145 PO
--- NOTE | 2018-11-30 17:27 | REP ---
HISTORY: Claudication. RIGHT: PSV The ankle brachial index is 1.01. PLANER MILL GRADER: 138 cm/s biphasic Profunda: 182 cm/s monophasic SFA proximal: 95/252 cm/s biphasic SFA mid: 71/180 cm/s biphasic SFA distal: 79.1 cm/s biphasic Popliteal artery: 47.7 cm/s biphasic Anterior tibial artery proximally: 48.3 cm/s biphasic. Tibial peroneal trunk: 51.6 cm/s biphasic Anterior tibial artery proximally: 33.3 cm/s biphasic Distally: 11.7 cm/s biphasic Anterior tibial artery distally: 50.1 cm/s biphasic. LEFT: PSV The ankle brachial index is 0.96. PLANER MILL GRADER: 109 cm/s monophasic Profunda: 77.0 cm/s biphasic SFA proximal: 102/162 cm/s biphasic SFA mid: 86.3/300 cm/s monophasic SFA distal: 66.5 cm/s monophasic Popliteal artery: 59.0 cm/s monophasic Anterior tibial artery proximally: 37.1 cm/s monophasic Tibial peroneal trunk: 38.0 cm/s monophasic Posterior tibial artery proximally: 39.4 cm/s monophasic Posterior tibial artery distally: 26.2 cm/s monophasic Anterior tibial artery distally: 47.3 cm/s IMPRESSION: As described above. Electronically Signed by Refugio Melton DO 11/30/2018 06:06 P
--- NOTE | 2018-11-30 17:54 | REP ---
CAROTID ULTRASOUND: Real-time ultrasound evaluation and duplex Doppler interrogation of the extracranial carotid vasculature is performed. Moderate plaquing and narrowing is seen bilaterally, with partially calcified plaque noted. Plaquing is in the common carotid arteries and carotid bulbs and this extends into the internal carotid arteries. There is elevated peak systolic velocity in the right internal carotid artery with elevated ICA/CCA ratio, increased since prior study of 12/23/2017. The findings are compatible with stenosis of the left internal carotid artery between 60 and 79%. Luminal narrowing of the right ICA is less than 50%. Complex cystic nodule in the right lobe of the thyroid measure 1.6 x 0.9 x 1.1 cm. There is a heterogeneous nodule in the left lobe of the thyroid 8.6 x 7 mm. There is normal direction of flow in both vertebral arteries. RIGHT LEFT PSV ICA 85.5 cm/s 190 cm/s EDV ICA 14.7 cm/s 29.4 cm/s PSV CCA 68.7 cm/s 66.8 cm/s PSV ECA 82.7 cm/s 165 cm/s ICA/CCA ratio 1.24 2.84 IMPRESSION: Findings compatible with stenosis left internal carotid artery 60 to 79% increased since prior study of 12/23/2017. Luminal narrowing right ICA less than 50%. Electronically Signed by Gus Viramontes MD 12/04/2018 05:00 P
== END ==
LOC: M RAD 13:04
PROVIDERS: ATTEND Physician Assistant
DX: I65.23 Occlusion and stenosis of bilateral carotid arteries (principal); I70.213 Atherosclerosis of native arteries of extremities with intermittent claudication, bilateral legs

== ENCOUNTER → 2018-12-27 | Outpatient (CLI) | payer MEDICARE ==
[~2018-12-27] MED LIST changes: +BUPIVACAINE HCL 0.5% 10 ML VIAL As Ordered ONE; +HEPARIN 1,000 UNITS/ML 10ML VIAL (FOR RADIOLOGY& DIALYSIS ONLY) As Ordered ONE; +ISOVUE-300 61% 50ML VIAL (Q9967) As Ordered ONE; +LIDOCAINE 1% MDV 20ML VIAL As Ordered ONE; +LIDOCAINE 2% MDV 20 ML VIAL As Ordered ONE; +MIDAZOLAM INJ 2 MG/2 ML VIAL (J2250) As Ordered ONE; +PROTAMINE SULF INJ 50 MG/5 ML VIAL (J2720) As Ordered ONE; +diphenhydrAMINE INJ 50MG/ML VIAL (J1200) As Ordered ONE; +fentaNYL 100 MCG/2 ML INJECTION (J3010) As Ordered ONE
--- NOTE | 2018-12-27 11:28 | IPNPDOC ---
Subjective Date Seen The patient was seen on 12/27/18. Subjective Chief Complaint/HPI recent h& P reviewed. right leg claudicant. physical: heart rate normal. breathing normally at rest ASA II Mallampati II no issue with moderate sedation in the past Plan: moderate sedation Assessment /Plan Plan/VTE VTE Prophylaxis Ordered?: No (NA) DAYANA APPLE MD Dec 27, 2018 11:28
--- NOTE | 2018-12-27 14:44 | ROOPDOC ---
[facility] Report Of Operation Report of Operation DATE OF PROCEDURE: 12/27/18 PREPROCEDURE DIAGNOSES: PAD POSTPROCEDURE DIAGNOSES: PAD PROCEDURE: Right leg angiogram. right SFA angioplasty SURGEON: Dante ANESTHESIA: moderate sedation ESTIMATED BLOOD LOSS: Approximately 15 mL. COMPLICATIONS: none REMARKS: left groin access. right leg angiogram. multi focal right SFA stenosis. treated with angioplasty. Follow up in IR clinic in two weeks. DAYANA APPLE MD Dec 27, 2018 14:44
--- NOTE | 2018-12-27 17:12 | REP ---
Right leg angiogram Selective right iliac artery catheterization Selective superficial femoral artery catheterization Superficial femoral artery angioplasty Superficial femoral artery angioplasty Clinical Information: Bilateral lower extremity intermittent claudication. Prior bilateral iliac stenting. Physician[s]: Dr Shepherdrocedure: The patient was advised of the benefits, risks, and alternatives of the procedure and informed consent was obtained.A time out was performed with verification of the patient's name, MRN, site of procedure, and type of procedure to be performed. The patient was positioned in the supine position on the angiographic table. The site was prepped and draped in the usual sterile fashion.Moderate sedation was performed by the physician including the presence of an independent trained observer that assisted in monitoring the patient's level of consciousness and physiological status. Following the administration of Fentanyl and Versed, the physician spent 90 minutes of continuous [id number] time with the patient. A tissue technician radiograph reveals bilateral iliac stents. Calcifications of the aorta. Surgical clips in the pelvis. The left femoral artery was accessed with a micropuncture kit. A [employer] wire was advanced into the aorta. The micropuncture sheath was exchanged over the wire for a a 5-Stateless vascular sheath. A 5-Stateless flush catheter was advanced over the wire and used to catheterize the abdominal aorta. An aortogram was performed. This demonstrates the infrarenal abdominal aortic aneurysm. Significant atherosclerotic disease of the aorta and bilateral iliac vessels. There is flow through the bilateral iliac stents and some intraluminal irregularity. The flush catheter was exchanged over the wire for a Kumpe catheter and in conjunction with a Glidewire was used to catheterize the right external iliac artery. A right iliac arteriogram was performed which demonstrates the iliac artery stent is patent with mild intra stent irregularity. Profunda femoris is patent. There are two focal areas of stenosis within the superficial femoral artery. In conjunction with the Glidewire the diagnostic catheter was used to catheterize the right common femoral artery and an arteriogram was performed. This again demonstrates the two focal areas of short segment stenosis in the SFA. Patent profunda femoris. Patent distal SFA. Right leg runoff was performed. This demonstrates a patent popliteal artery. Patent anterior tibial artery and tibioperoneal trunk. The catheter was exchanged over the wire for a 5 mm x 40 mm angioplasty balloon catheter. This was used to angioplasty the 2 sites of focal short segment stenosis in the SFA. Systemic heparin was administered. The balloon was exchanged over the wire for a a catheter. A follow-up arteriogram was performed and this demonstrates improved flow through the 2 focal area of stenosis. Patent distal SFA flow. The catheter was removed. A 5-Stateless Mynx device was used to close the left groin arteriotomy and the sheath was removed. Hemostasis achieved. A sterile dressing was applied to the site. Patient tolerated the procedure well. Post procedure, bilateral pedal pulses are palpable. The patient was transferred to [facility] in stable condition. Complications: None Estimated blood loss: Less than 5 ml Impression: 1. Right leg angiogram demonstrates focal short segment stenoses in the right superficial femoral artery. 2. Successful balloon angioplasty of two segments of the right SFA with improved flow. 3. Patient to follow-up in IR clinic in 2 weeks. Thank you for this referral Electronically Signed by Romana Howell MD 12/27/2018 05:03 P
== END | disposition home or self-care (01) ==
LOC: M IRPRO 09:40
PROVIDERS: ATTEND Surgery Vascular Surgery
DX: I70.211 Atherosclerosis of native arteries of extremities with intermittent claudication, right leg (principal); I70.0 Atherosclerosis of aorta; I71.4 Abdominal aortic aneurysm, without rupture
CPT/HCPCS: 37224; C1725; C1760; C1769; C1887; C1894; J1200; J2250; J3010; Q9967

== ENCOUNTER → 2019-01-09 | Outpatient (POV) | payer MEDICARE ==
[~2019-01-09] VITALS: Ht 160 cm; Wt 54.5 kg
[~2019-01-09] MED LIST changes: -BUPIVACAINE HCL 0.5% 10 ML VIAL As Ordered ONE; +CIPR500T19 PO; +CLOP75TA2 PO; -HEPARIN 1,000 UNITS/ML 10ML VIAL (FOR RADIOLOGY& DIALYSIS ONLY) As Ordered ONE; -ISOVUE-300 61% 50ML VIAL (Q9967) As Ordered ONE; -LIDOCAINE 1% MDV 20ML VIAL As Ordered ONE; -LIDOCAINE 2% MDV 20 ML VIAL As Ordered ONE; -MIDAZOLAM INJ 2 MG/2 ML VIAL (J2250) As Ordered ONE; -PROTAMINE SULF INJ 50 MG/5 ML VIAL (J2720) As Ordered ONE; +TRAM1CAP15 PO; +TRAMADOL PO; -diphenhydrAMINE INJ 50MG/ML VIAL (J1200) As Ordered ONE; -fentaNYL 100 MCG/2 ML INJECTION (J3010) As Ordered ONE
[2019-01-09 13:05] VITALS: BP 138/60
--- NOTE | 2019-01-09 15:17 | CR.PDOC ---
General Date of Consultation: Jan 09, 2019 Consultation REASON FOR CONSULTATION/CHIEF COMPLAINT: Bilateral leg pain. HISTORY OF PRESENT ILLNESS: 88 female ex smoker with bilateral leg pain for as l nivia as she can remember. Pain she describes as " just hurts" and it's worse after walking and relieved by rest. Prior angiogram and iliac stenting done in October [address] Zeng. Patient feels this did not make a difference to the pain. Also underwent right leg angiogram and angioplasty 2 weeks ago under my care and doesn't feel any different. Denies rest pain. Denies ulcers. Also has a 4.7 cm AAA which concerns her. Severe arthritis right hip and severe COPD. Currently not on an exercise program, she complains she cant breath with exercise. Not on Plavix or ACEI. ALLERGIES: Please see below. HOME MEDICATIONS: Please see below. PAST MEDICAL HISTORY: COPD. Denies [place], angina or stroke PAST SURGICAL HISTORY: iliac stenting FAMILY HISTORY: CAD SOCIAL HISTORY: ex smoker. Independent with activities of daily living REVIEW OF SYSTEMS: otherwise negative PHYSICAL EXAMINATION: VITAL SIGNS: Please see below. GENERAL APPEARANCE: comfortable at rest HEENT: no scleral icterus. RESPIRATORY: normal breathing at rest CARDIOVASCULAR: normal rate ABDOMEN: non distended EXTREMITIES: right lower extremity: No edema or pallor. Temp normal. no ulcers. femoral, popliteal and pedal pulses present. motor 5/5, sensation intact left lower extremity: No edema or pallor. Temp normal. no ulcers. femoral, popliteal and pedal pulses present. motor 5/5, sensation intact NEUROLOGICAL: alert and oriented PSYCHIATRIC: appropriate to circumstance LABORATORY DATA: Please see below. Images: I personally reviewed both October and December angiograms. There is diffuse atherosclerotic disease involving, iliacs, common femoral and SFA. Multiple short segment stenosis in bilateral SFA. Small caliber [place] vasculature. Infra renal AAA. Right below knee run off intact. ASSESSMENT/PLAN: 1. AAA; 4.7 cm. Requires on going surveillance and/or repair when appropriate. I will refer the patient to vascular surgery for ongoing surveillance. 2. PAD; clinically unresponsive to angioplasty. Start Plavix and ARABELLA inhibitor for coronary risk and continue Aspirin and statin. Consider starting Pletal for claudication symptoms. Thank you for this referral. Vital Signs/I&O Vital Signs Date Time Temp Pulse Resp B/P (MAP) Pulse Ox O2 Delivery O2 Flow Rate FiO2 01/09/19 13:05 98.2 90 20 138/60 (86) 95 Allergies Coded Allergies: Penicillins (Verified Allergy, Intermediate, hives, 11/04/18) Home Medications Scheduled Aspirin (Aspirin EC) 81 Mg Tablet.dr, 81 MG PO QHS, (Reported) Cholecalciferol (Vitamin D3) (Vitamin D3) 1,000 Unit Tablet, 1,000 UNIT PO QHS, (Reported) Digoxin (Digoxin) 125 Mcg Tablet, 125 MCG PO QHS, (Reported) Furosemide (Furosemide) 20 Mg Tablet, 10 MG PO QHS, (Reported) Pravastatin Sodium (Pravastatin Sodium) 40 Mg Tab, 40 MG PO QHS, (Reported) Ropinirole HCl (Ropinirole HCl) 0.5 Mg Tablet, 0.5 MG PO QHS, (Reported) Verapamil HCl (Verapamil ER) 240 Mg Tablet.er, 240 MG PO QHS, (Reported) Scheduled PRN Betamethasone Dip (Betamethasone Dipropionate) 1 Dose/15 Gm Cream, 1 DOSE TOP BID PRN for PSORIASIS, (Reported) APPLIED TO BACK OF NECK/SCALP DAYANA APPLE MD Jan 09, 2019 15:17
== END ==
LOC: M IRPOV 13:01
PROVIDERS: ATTEND Radiology Diagnostic Radiology
DX: I73.9 Peripheral vascular disease, unspecified (principal); M79.604 Pain in right leg; M79.605 Pain in left leg; I71.4 Abdominal aortic aneurysm, without rupture; M16.11 Unilateral primary osteoarthritis, right hip; J44.9 Chronic obstructive pulmonary disease, unspecified; Z82.49 Family history of ischemic heart disease and other diseases of the circulatory system; Z87.891 Personal history of nicotine dependence

== ENCOUNTER 2019-01-17 14:32 | Inpatient (IN) | payer MEDICARE ==
[~2019-01-17] VITALS: Ht 160 cm; Wt 53.5 kg
[~2019-01-17 14:32] MED LIST changes: -CIPR500T19 PO; -CLOP75TA2 PO; -TRAM1CAP15 PO; -TRAMADOL PO
[2019-01-17] MEDS ORDERED: CLOP75TA2 PO (15:31)
[2019-01-17] MEDS ORDERED: TRAM1CAP15 PO (15:31)
[2019-01-17] MEDS ORDERED: NS 500 ML IV ONE (18:45)
[2019-01-17 18:46] LABS: BASO # 0.1 10^3/uL (0.0-0.2); BASO % 0.5 % (0.0-1.0); EOS # 0.1 10^3/uL (0.0-0.50); EOS % 0.5 % (0.0-3.0); HEMOGLOBIN 13.1 g/dl (12.0-15.5); LYMPH # 1.8 10^3/uL (1.5-4.5); LYMPH % 11.9 % (24.0-44.0); MEAN CORPUSCULAR HEMOGLOBIN 30.6 pg (27.0-33.0); MEAN CORPUSCULAR VOLUME 95.8 fl (80.0-96.0); MONO # 1.2 10^3/uL (0.0-0.8); MONO % 8.3 % (0.0-5.0); NEUTROPHILS # 11.6 10^3/uL (1.8-7.7); NEUTROPHILS % 77.7 % (36.0-66.0); PLATELET COUNT, AUTOMATED 264 10^3/uL (150-450); RED BLOOD COUNT 4.28 10^6/uL (4.00-5.40); WHITE BLOOD COUNT 14.9 10^3/uL (4.0-10.0)
[2019-01-17] MEDS ORDERED: TRAMADOL PO (19:15)
--- NOTE | 2019-01-17 19:15 | REP ---
HISTORY: Back pain after trauma. COMPARISON: 12/13/2014 There is a levoconvex curve increased slightly from the prior exam. The bones are demineralized. Heavy partial syndesmophyte formation is seen bilaterally at every level increased from the prior exam. There is advanced disc space narrowing at every level, increased from the prior exam. There is no significant change in the appearance of vertebral body height. Since the last examination, bilateral iliac artery stent grafts have been placed. Abnormal abdominal aortic calcifications are present which appear to have increased from prior exam. Please refer to the previous abdominal aortic ultrasound examination of 11/10/2018 which is more sensitive than this examination is in assessing the abdominal aorta. IMPRESSION: Chronic changes and other findings as described above with recommendations. Electronically Signed by Refugio Melton DO 01/17/2019 07:46 P
[2019-01-17 19:24] LABS: CALCIUM LEVEL 9.5 MG/DL (8.8-10.2); CREATININE FOR GFR 1.51 MG/DL (0.55-1.30); GLOMERULAR FILTRATION RATE 34.8 (>32); POTASSIUM SERUM 3.7 MEQ/L (3.5-5.1)
--- NOTE | 2019-01-17 19:27 | REP ---
HISTORY: Pain after trauma. COMPARISON: None. The bones are markedly demineralized to such a degree a nondisplaced hairline fracture could easily be obscured. There is no evidence of a gross fracture. IMPRESSION: Chronic changes as described above. Electronically Signed by Refugio Melton DO 01/17/2019 07:46 P
[2019-01-17] MEDS ORDERED: NS 1,000 ML IV SCH (19:30)
[2019-01-17] MEDS ORDERED: cefTRIAXone SOD 1 GM in D5W MINI-BAG PLUS 50 ML IV ONE (19:30)
[2019-01-17] MEDS ORDERED: NS IV ONE (20:30)
[2019-01-17] MEDS ORDERED: DILUENT IV ONE (20:30)
--- NOTE | 2019-01-17 20:35 | REPVR ---
EXAM: CT Abdomen and Pelvis Without Contrast EXAM DATE/TIME: 01/17/2019 7:42 PM CLINICAL HISTORY: 88 years old, female; Condition or disease; Other: Pyelonephritits; Additional info: Left pyelonephritis R/O obstruction TECHNIQUE: Imaging protocol: Axial computed tomography images of the abdomen and pelvis without contrast. Coronal and sagittal reformatted images were created and reviewed. Radiation optimization: All CT scans at this facility use at least one of these dose optimization techniques: automated exposure control; mA and/or kV adjustment per patient size (includes targeted exams where dose is matched to clinical indication); or iterative reconstruction. COMPARISON: CR Hip,AP,LAT to include Pelvis 01/20/2018 3:00 PM FINDINGS: Lungs: Minimal bibasilar bullous change. Liver: Normal. No mass. Gallbladder and bile ducts: Punctate calcification of the gallbladder wall. Pancreas: Normal. No ductal dilation. Spleen: Normal. No splenomegaly. Adrenals: Normal. No mass. Kidneys and ureters: There are bilateral renal cysts measuring up to 20 mm in the left. Moderate left hydronephrosis to the UPJ which may reflect chronic UPJ obstruction with thinning of the overlying left renal parenchyma or cortex. Minimal nonobstructing bilateral renal calculi. Stomach and bowel: There is colonic diverticulosis without evidence of diverticulitis. Appendix: A normal appendix is seen. Intraperitoneal space: Normal. No free air. No significant fluid collection. Vasculature: Bilateral common iliac and right external iliac vascular stents. Short segment proximal infrarenal abdominal aortic aneurysm measuring 4.2 cm in diameter and 3.6 cm in length. There is moderate atherosclerotic calcification of the abdominal aorta with extension into the iliac arteries. Lymph nodes: Normal. No enlarged lymph nodes. Bladder: Unremarkable as visualized. Reproductive: Unremarkable as visualized. Bones/joints: Interval right femoral medullary nolan with traversing nail across the intertrochanteric fracture into the right femoral head. Degenerative change of the lumbar spine with levoscoliosis centered at L1-L2. Soft tissues: Unremarkable. IMPRESSION: 1. Interval right femoral medullary nolan with traversing nail extending into the right femoral head since 01/20/2018. 2. Iliac vascular stents with aortic calcification and short segment infrarenal abdominal aortic aneurysm measuring up to 4.2 cm in diameter but 3.6 cm in length. 3. Colonic diverticulosis without diverticulitis. 4. 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 5. Minimal nonobstructing bilateral renal calculi. 6. Otherwise negative CT abdomen/pelvis. Electronically signed by: Mir Jaimes On 01/17/2019 20:35:07 PM
[2019-01-17] MEDS: VERAPAMIL 120 MG SR TAB PO SCH (21:00)
[2019-01-17] MEDS: NS 1,000 ML IV SCH (21:00)
--- NOTE | 2019-01-17 21:11 | HPEPDOC ---
General Date of Admission 01/17/19 Date of Service: Jan 17, 2019 Attending Physician: NUBIA LEONG MD Chief Complaint The patient is a 88-year-old female admitted with a reason for visit of Flank Pa in, Urinary Problem. Source: Patient Exam Limitations: No limitations Timing/Duration: Day(s) (3 days) Severity: Moderate Associated Symptoms: Other (, difficulty urination) History of Present Illness 88 years old white female with past medical history of CAD status post angioplasty. 2 weeks ago. Surgeries, history of colon cancer, history of tonsillectomy, history of AAA fell on her tailbone on Tuesday and has been complaining of severe pain related to that patient now has pain in left flank is unable to urinate and decided come to ED. She was diagnosed with pyelonephrosis of left kidney with UTI. Home Medications Scheduled Aspirin (Aspirin EC) 81 Mg Tablet.dr, 81 MG PO QHS, (Reported) Cholecalciferol (Vitamin D3) (Vitamin D3) 1,000 Unit Tablet, 1,000 UNIT PO QHS, (Reported) Clopidogrel Bisulfate (Clopidogrel) 75 Mg Tablet, 75 MG PO DAILY, (Reported) Digoxin (Digoxin) 125 Mcg Tablet, 125 MCG PO QHS, (Reported) Furosemide (Furosemide) 20 Mg Tablet, 10 MG PO QHS, (Reported) Pravastatin Sodium (Pravastatin Sodium) 40 Mg Tab, 40 MG PO QHS, (Reported) Ropinirole HCl (Ropinirole HCl) 0.5 Mg Tablet, 0.5 MG PO QHS, (Reported) Verapamil HCl (Verapamil ER) 240 Mg Tablet.er, 240 MG PO QHS, (Reported) Scheduled PRN [Tramadol] , 1 DOSE PO DAILY PRN for PAIN, (Reported) PATIENT STATES THAT SHE TOOK ONE TRAMADOL LAST NIGHT AND IS UNAWARE OF DOSE. HER PHARMACY HAS NO RECORD OF TRAMADOL BEING FILLED. Allergies Coded Allergies: Penicillins (Verified Allergy, Intermediate, hives, 11/04/18) Past Medical History Medical History CAD status post angioplasty, cataract surgery, history of AAA , Hypertension, hyperlipidemia. Surgical History As above Family History Significant Family History: No pertinent family hx Social History * Smoker: former Smoker Alcohol: Denies Drugs: denies A-FIB/CHADSVASC A-FIB History Current/History of A-Fib/PAF?: No Review of Systems Constitutional: Reports: Chills, Weakness Eyes: Denies: Pain, Vision change, Conjunctivae inflammation, Eyelid inflammation, Redness, Other ENT: Denies: Head Aches, Ear Pain, Dysphagia, Sinus Congestion, Post Nasal Drip, Sore Throat, Epistaxis, Other Symptoms Skin: Denies: Rash, Lesions, Jaundice, Bruising, Itching, Dry, Breakdown, Nail Changes, Other Pulmonary: Denies: Dyspnea, Cough, Pleuritic Chest Pain, Other Symptoms Cardiovascular: Denies: Chest Pain, Palpitations, Orthopnea, Paroxysmal Noc. Dyspnea, Edema, Lt Headedness, Other Symptoms Gastrointestinal: Denies: Nausea, Vomiting, Abdominal Pain, Diarrhea, Constipation, Melena, Hematochezia, Other Symptoms Genitourinary: Reports: Dysuria, Other Symptoms Hematologic: Denies: Bruising, Bleeding Excessively, Petecchia, Purpura, Enlarged Lymph Nodes, Other Hematologic Endocrine: Denies: Polydipsia, Polyphagia, Polyuria, Heat Intolerance, Cold Intolerance, Other Endocrine Sx Musculoskeletal: Denies: Neck Pain, Back Pain, Shoulder Pain, Arm Pain, Hand Pain, Leg Pain, Foot Pain, Joint Pain, Muscle Pain, Spasms, Other Symptoms Neurological: Denies: Weakness, Numbness, Incoordination, Change in speech, Confusion, Seizures, Other Symptoms Psych: Denies: Mood Normal, Anxiety, Depression, Memory Issues, Thoughts of Self Harm, Anger, Thoughts of Harming Other, Other Psych Physical Examination General Exam: Positive: Alert Eye Exam: Positive: PERRLA ENT Exam: Positive: Atraumatic Neck Exam: Positive: Supple Chest Exam: Positive: Clear to auscultation, Normal air movement Heart Exam: Positive: Rate Normal, Normal S1, Normal S2 Abdomen Exam: Positive: Normal bowel sounds, Soft Extremity Exam: Positive: Normal pulses Skin Exam: Positive: Nl turgor and temperature Neuro Exam: Positive: Strength at 5/5 X4 ext, Sensation Intact Psych Exam: Positive: Mental status NL Vital Signs Vital Signs Date Time Temp Pulse Resp B/P (MAP) Pulse Ox O2 Delivery O2 Flow Rate FiO2 01/17/19 20:17 152 132/80 (97) 01/17/19 19:15 99.3 90 01/17/19 14:32 24 Room Air Laboratory Data Labs 24H Laboratory Tests 2 01/17/19 16:47: Urine Color LINDA, Urine Appearance TURBIDH, Urine pH 5.0, Urine Specific [place] 1.018, Urine Protein 2+H, Urine Glucose (UA) NEGATIVE, Urine Ketones NEGATIVE, Urine Blood 2+H, Urine Nitrite NEGATIVE, Urine Bilirubin NEGATIVE, Urine Urobilinogen 0.2, Urine Leukocyte Esterase 3+H, Urine WBC (Auto) TNTCH, Urine RBC (Auto) 137H, Urine Hyaline Casts (Auto) 0, Urine Bacteria (Auto) 3+H, Urine Squamous Epithelial Cells 0, Urine Mucus (Auto) SMALL, Urine Sperm (Auto) 01/17/19 18:23: Immature Granulocyte % (Auto) 1.1, White Blood Count 14.9H, Red Blood Count 4.28, Hemoglobin 13.1, Hematocrit 41.0, Mean Corpuscular Volume 95.8, Mean Corpuscular Hemoglobin 30.6, Mean Corpuscular Hemoglobin Concent 32.0, Red Cell Distribution Width 14.6H, Platelet Count 264, Neutrophils (%) (Auto) 77.7H, Lymphocytes (%) (Auto) 11.9L, Monocytes (%) (Auto) 8.3H, Eosinophils (%) (Auto) 0.5, Basophils (%) (Auto) 0.5, Neutrophils # (Auto) 11.6H, Lymphocytes # (Auto) 1.8, Monocytes # (Auto) 1.2H, Eosinophils # (Auto) 0.1, Basophils # (Auto) 0.1, Nucleated Red Blood Cells % (auto) 0.0, Anion Gap 8, Glomerular Filtration Rate 34.8, Blood Urea Nitrogen 30H, Creatinine 1.51H, Sodium Level 139, Potassium Level 3.7, Chloride Level 101, Carbon Dioxide Level 30, Calcium Level 9.5 CBC/BMP Laboratory Tests 01/17/19 18:23 Red Blood Count 4.28, Mean Corpuscular Volume 95.8, Mean Corpuscular Hemoglobin 30.6, Mean Corpuscular Hemoglobin Concent 32.0, Red Cell Distribution Width 14.6 H, Neutrophils (%) (Auto) 77.7 H, Lymphocytes (%) (Auto) 11.9 L, Monocytes (%) (Auto) 8.3 H, Eosinophils (%) (Auto) 0.5, Basophils (%) (Auto) 0.5, Neutrophils # (Auto) 11.6 H, Lymphocytes # (Auto) 1.8, Monocytes # (Auto) 1.2 H, Eosinophils # (Auto) 0.1, Basophils # (Auto) 0.1, Calcium Level 9.5 Microbiology Microbiology 01/17/19 Urine Culture, Received Pending Problems (1) Pyelonephritis of left kidney Status: Acute Problem Text: 88 years old white female admitted with possible pyelonephritis of left kidney CT of the abdomen and pelvis is done which showed Moderate left hydronephrosis to the UPJ which 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 Patient also has a evidence of a urinary tract infection Patient received IV fluids and Rocephin in ED Will continue IV fluids and Rocephin on the medical floor Remote telemetry to monitor tachycardia, most likely secondary to infection , But since she has a recent history of cardiac disease. We'll Keep in close eye on it Continue all home meds DVT prophylaxis with Lovenox Regular diet Activity as tolerated Am level Follow-up Urine cultures. Once available Plan / VTE VTE Prophylaxis Ordered?: Yes NUBIA LEONG MD Jan 17, 2019 21:11
[2019-01-17] MEDS: ACETAMINOPHEN TAB 650MG DOSE (2X325MG) PO PRN (21:53)
[2019-01-17 22:16] VITALS: BP 98/48
[2019-01-17] MEDS: VITAMIN D 1,000 INTERNATIONAL UNITS TABLET PO SCH (23:12)
[2019-01-17] MEDS: PRAVASTATIN 20 MG TAB PO SCH (23:13)
[2019-01-17] MEDS: rOPINIRole 0.25 MG TAB(REQUIP) PO SCH (23:14)
[2019-01-18 06:00] VITALS: BP 121/55
[2019-01-18 06:18] LABS: HEMATOCRIT 34.3 % (36.0-47.0); MEAN CORPUSCULAR HEMOGLOBIN 30.2 pg (27.0-33.0); MEAN CORPUSCULAR HGB CONC 31.2 g/dl (32.0-36.5); MEAN CORPUSCULAR VOLUME 96.9 fl (80.0-96.0); PLATELET COUNT, AUTOMATED 179 10^3/uL (150-450); RED BLOOD COUNT 3.54 10^6/uL (4.00-5.40); WHITE BLOOD COUNT 13.5 10^3/uL (4.0-10.0)
[2019-01-18 06:28] LABS: HEMOGLOBIN 10.7 g/dl (12.0-15.5)
[2019-01-18 06:44] LABS: ALBUMIN 2.2 GM/DL (3.2-5.2); ALT/SGPT < 6 U/L (12-78); BILIRUBIN,TOTAL 0.5 MG/DL (0.2-1.0); BLOOD UREA NITROGEN 27 MG/DL (7-18); CALCIUM LEVEL 8.1 MG/DL (8.8-10.2); CARBON DIOXIDE LEVEL 28 MEQ/L (21-32); CHLORIDE LEVEL 108 MEQ/L (98-107); GLUCOSE, FASTING 105 MG/DL (70-100); POTASSIUM SERUM 3.7 MEQ/L (3.5-5.1); SODIUM LEVEL 141 MEQ/L (136-145); TOTAL PROTEIN 5.6 GM/DL (6.4-8.2)
[2019-01-18] MEDS: ENOXAPARIN 30 MG/0.3 ML SYR (J1650) SC SCH ×3 (08:49→11:28)
[2019-01-18] MEDS: CLOPIDOGREL 75 MG TAB PO SCH (08:50)
[2019-01-18] MEDS: DIGOXIN 0.125 MG TAB PO SCH (09:00)
[2019-01-18] MEDS: NS 1,000 ML IV SCH (10:34)
--- NOTE | 2019-01-18 10:40 | IPNPDOC ---
Date Seen The patient was seen on 01/18/19. Progress Note SUBJECTIVE: Patient is a 88-year-old female with a past medical history of CAD s/p angioplasty, history of AAA, hypertension, hyperlipidemia, GI bleed, cataracts, Painless rectal bleeding, peripheral artery disease presented to the ER with flank pain and urinary problems. Ms. Sampson states that she fell on her tailbone on Tuesday. In the days following the fall she developed left flank pain and was not able to urinate. She decided to present to the Er and was diagnosed with pyelonephrosis of left kidney with UTI. Patient was examined at bedside. Patient appears tired but is feeling better than she did yesterday. Ms. Sampson admits to having shortness of breath on exertion but is fine while laying in bed. She states that she has been sneezing more than usual this morning and has a post nasal drip that developed in the last 24 hours. She denies Chest pain, dysuria, fevers, chills, syncope, dizziness, nausea, or vomiting. OBJECTIVE PHYSICAL EXAMINATION: VITAL SIGNS: Please see below. GENERAL: laying in left lateral decubitus position. Tired but alert and cooperative HEENT: NC AT, mucous membranes moist and pink CARDIOVASCULAR: systolic murmur heard, RRR RESPIRATORY: clear to auscultation equal air intake bilaterally ABDOMINAL: soft, normal bowel sounds, no tenderness to palpation suprapubically, left CVA tenderness noted. EXTREMITIES: trace edema noted, no cyanosis or rashes noted. NEUROLOGICAL: no focal deficits, AAOx3 PSYCHOLOGICAL: normal affect LABORATORY DATA, IMAGING STUDIES, MICROBIOLOGY: Please see below. 1.abdomen/pelvic CT 01/17/19: 1. Interval right femoral medullary nolan with traversing nail extending into the right femoral head since 01/20/2018. 2. Iliac vascular stents with aortic calcification and short segment infrarenal abdominal aortic aneurysm measuring up to 4.2 cm in diameter but 3.6 cm in length. 3. Colonic diverticulosis without diverticulitis. 4. 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 5. Minimal nonobstructing bilateral renal calculi. 6. Otherwise negative CT abdomen/pelvis. 2. Lumbar spine x-ray 01/17/19: Chronic changes and other findings as described above with recommendations. 3. Sacrum and coccyx x-ray 01/17/19: The bones are markedly demineralized to such a degree a nondisplaced hairline fracture could easily be obscured. There is no evidence of a gross fracture. DVT prophylaxis ordered?: Yes, Jose ASSESSMENT AND PLAN: Patient is a 88-year-old female with a past medical history of CAD s/p angioplasty, history of AAA, hypertension, hyperlipidemia, GI bleed, cataracts, Painless rectal bleeding, peripheral artery disease PROBLEMS: 1. Acute Pyelonephritis of left kidney with evidence of UTI in the setting of obstruction -Renal calculi seen on CT -baseline creatinine is 1.7 -Urology consulted -c/w IV ceftriaxone, IV fluids, and supportive care-per Dr. Thomas -Dr. Thomas recommends checking a post void residual -acetaminophen prn for pain -monitoring patients tachycardia with telemetry-may be 2/2 to infection -Venous blood culture and urine culture results pending -If patient become septic or more sick a nephrostomy tube or ureteral stent may be indicated 3. CAD s/p angioplasty -c/w home medications 4. History of AAA 5. Hypertension -c/w home medications 6. Hyperlipidemia -c/w home medications DISPOSITION: Patient is stable and comfortable. Continue with IV ceftriaxone, IV fluids, and supportive care. We have consulted Urology and appreciate their input. Patient evaluated by PT today. I saw and evaluated the patient. I agree with the findings and plan of care as documented in the above note VS, I&O, 24H, Fishbone Vital Signs/I&O Vital Signs Date Time Temp Pulse Resp B/P (MAP) Pulse Ox O2 Delivery O2 Flow Rate FiO2 01/18/19 09:00 88 01/18/19 06:00 98.4 18 121/55 (77) 94 01/17/19 14:32 Room Air I&O- Last 24 Hours up to 6 AM 01/18/19 06:00 Intake Total 1905 ml Output Total 400 ml Balance 1505 ml Laboratory Data 24H LABS Laboratory Tests 2 01/17/19 16:47: Urine Color LNIDA, Urine Appearance TURBIDH, Urine pH 5.0, Urine Specific [place] 1.018, Urine Protein 2+H, Urine Glucose (UA) NEGATIVE, Urine Ketones NEGATIVE, Urine Blood 2+H, Urine Nitrite NEGATIVE, Urine Bilirubin NEGATIVE, Urine Urobilinogen 0.2, Urine Leukocyte Esterase 3+H, Urine WBC (Auto) TNTCH, Urine RBC (Auto) 137H, Urine Hyaline Casts (Auto) 0, Urine Bacteria (Auto) 3+H, Urine Squamous Epithelial Cells 0, Urine Mucus (Auto) SMALL, Urine Sperm (Auto) 01/17/19 18:23: Immature Granulocyte % (Auto) 1.1, White Blood Count 14.9H, Red Blood Count 4.28, Hemoglobin 13.1, Hematocrit 41.0, Mean Corpuscular Volume 95.8, Mean Corpuscular Hemoglobin 30.6, Mean Corpuscular Hemoglobin Concent 32.0, Red Cell Distribution Width 14.6H, Platelet Count 264, Neutrophils (%) (Auto) 77.7H, Lymphocytes (%) (Auto) 11.9L, Monocytes (%) (Auto) 8.3H, Eosinophils (%) (Auto) 0.5, Basophils (%) (Auto) 0.5, Neutrophils # (Auto) 11.6H, Lymphocytes # (Auto) 1.8, Monocytes # (Auto) 1.2H, Eosinophils # (Auto) 0.1, Basophils # (Auto) 0.1, Nucleated Red Blood Cells % (auto) 0.0, Anion Gap 8, Glomerular Filtration Rate 34.8, Blood Urea Nitrogen 30H, Creatinine 1.51H, Sodium Level 139, Potassium Level 3.7, Chloride Level 101, Carbon Dioxide Level 30, Calcium Level 9.5 01/18/19 05:19: Nucleated Red Blood Cells % (auto) 0.0, Anion Gap 5L, Glomerular Filtration Rate 38.0, Blood Urea Nitrogen 27H, Creatinine 1.40H, Sodium Level 141, Potassium Level 3.7, Chloride Level 108H, Carbon Dioxide Level 28, Calcium Level 8.1L, Aspartate Amino Transf (AST/SGOT) 22, Alanine Aminotransferase (ALT/SGPT) < 6L, Alkaline Phosphatase 71, Total Bilirubin 0.5, Total Protein 5.6L, Albumin 2.2L, Albumin/Globulin Ratio 0.65L 01/18/19 07:33: Lactic Acid Level 1.0 CBC/BMP Laboratory Tests 01/17/19 18:23 Red Blood Count 4.28, Mean Corpuscular Volume 95.8, Mean Corpuscular Hemoglobin 30.6, Mean Corpuscular Hemoglobin Concent 32.0, Red Cell Distribution Width 14.6 H, Neutrophils (%) (Auto) 77.7 H, Lymphocytes (%) (Auto) 11.9 L, Monocytes (%) (Auto) 8.3 H, Eosinophils (%) (Auto) 0.5, Basophils (%) (Auto) 0.5, Neutrophils # (Auto) 11.6 H, Lymphocytes # (Auto) 1.8, Monocytes # (Auto) 1.2 H, Eosinophils # (Auto) 0.1, Basophils # (Auto) 0.1, Calcium Level 9.5 01/18/19 05:19 Red Blood Count 3.54 L, Mean Corpuscular Volume 96.9 H, Mean Corpuscular Hemogl obin 30.2, Mean Corpuscular Hemoglobin Concent 31.2 L, Red Cell Distribution Width 14.6 H, Calcium Level 8.1 L, Aspartate Amino Transf (AST/SGOT) 22, Alanine Aminotransferase (ALT/SGPT) < 6 L, Alkaline Phosphatase 71, Total Bilirubin 0.5, Total Protein 5.6 L, Albumin 2.2 L Microbiology Microbiology 01/18/19 Blood Culture, Received Pending 01/17/19 Urine Culture, Received Pending DMITRI CLEMENTE S-3 Jan 18, 2019 10:40 ANNA GREEN MD Jan 20, 2019 17:43
[2019-01-18 14:00] VITALS: BP 130/70
[2019-01-18] MEDS: ACETAMINOPHEN TAB 650MG DOSE (2X325MG) PO PRN ×2 (14:50→22:19)
--- NOTE | 2019-01-18 16:14 | SMCUROLCON ---
Urology Consultation General Date of Consultation 01/18/19 Reason For Consultation This patient is seen for Pyelonephritis and obstuctive uropathy. History of Present Illness Kate is 88 years old with a two-week history of some urinary symptoms with a pressure like she needs to go. She then developed some left flank pain. She has also recently fell and hit her tailbone and has pain in her lower back and side. She denies any gross hematuria, history of kidney stones, or known recurrent urinary tract infections. She normally empties her bladder completely. Past Medical History Medical History CAD status post angioplasty, history of a AAA, high blood pressure, and hy perlipidemia Surgical Hstory Cataract surgery, AAA repair, angioplasty Family History Significant Family History: No pertinent family hx Social History * Smoker: former Smoker Alcohol: Denies Drugs: denies Medications Current Medications Current Medications Medications (Trade) Dose Ordered Sig/Donna Route PRN Reason Start Time Stop Time Status Last Admin Dose Admin Acetaminophen (Tylenol Tab) 650 mg Q4H PRN PO PAIN OR FEVER 01/17/19 21:00 01/18/19 14:50 Ceftriaxone Sodium 1 gm/ Dextrose 50 ml @ 100 mls/hr Q24H IV 01/18/19 20:00 Clopidogrel Bisulfate (PLAVix) 75 mg DAILY PO 01/18/19 09:00 01/18/19 08:50 Digoxin (Lanoxin) 0.125 mg DAILY PO 01/18/19 09:00 01/18/19 09:00 Enoxaparin Sodium (Lovenox) 30 mg DAILY SC 01/18/19 09:00 Home Med (Med Rec Complete!) ASDIRECTED XX 01/17/19 19:30 01/17/19 19:30 DC Pravastatin Sodium (Pravachol) 40 mg QHS PO 01/17/19 21:00 01/17/19 23:13 Ropinirole HCl (Requip) 0.5 mg QHS PO 01/17/19 21:00 01/17/19 23:14 Sodium Chloride 1,000 ml @ 70 mls/hr [id number] IV 01/17/19 19:30 01/17/19 21:18 DC 01/17/19 20:23 Sodium Chloride 1,000 ml @ 70 mls/hr [id number] IV 01/17/19 21:00 01/18/19 10:34 Verapamil HCl (Isoptin-Sr, Calan Sr) 240 mg QHS PO 01/17/19 21:00 Vitamin D (Vitamin D) 1,000 units QHS PO 01/17/19 21:00 01/17/19 23:12 Allergies Allergies: Coded Allergies: Penicillins (Verified Allergy, Intermediate, hives, 11/04/18) Review of Systems Genitourinary: Reports: Dysuria, Frequency, Incontinence, Hematuria, Retention, Other Symptoms (lower abdominal pressure) Physical Examination General Exam: Cooperative EYE EXAM: PERRLA, EOMI Neck Exam: Supple Chest Exam: Clear to auscultation Heart Exam: Rate Normal, Regular Rhythm Abdomen Exam: Normal Bowel Sounds, Soft Female Exam Deferred since she is having no vaginal complaints Extremity Exam: Other (No cyanosis, clubbing, or edema) Skin Exam: Nl turgor and temperature; No: Rash, Breakdown Neuro Exam: Normal Gait, Normal Speech, Cranial Nerves 3-12 NL, Reflexes 2+ Psych Exam: Mental status NL, Mood NL, Oriented x 3 Vital Signs/I&O Vital Signs Date Time Temp Pulse Resp B/P (MAP) Pulse Ox O2 Delivery O2 Flow Rate FiO2 01/18/19 14:00 98.9 115 18 99 01/18/19 06:00 121/55 (77) 01/17/19 14:32 Room Air I&O- Last 24 Hours up to 6 AM 01/18/19 06:00 Intake Total 1905 ml Output Total 400 ml Balance 1505 ml Laboratory Data 24H Labs Laboratory Tests 2 01/17/19 16:47: Urine Color LINDA, Urine Appearance TURBIDH, Urine pH 5.0, Urine Specific [place] 1.018, Urine Protein 2+H, Urine Glucose (UA) NEGATIVE, Urine Ketones NEGATIVE, Urine Blood 2+H, Urine Nitrite NEGATIVE, Urine Bilirubin NEGATIVE, Urine Urobilinogen 0.2, Urine Leukocyte Esterase 3+H, Urine WBC (Auto) TNTCH, Urine RBC (Auto) 137H, Urine Hyaline Casts (Auto) 0, Urine Bacteria (Auto) 3+H, Urine Squamous Epithelial Cells 0, Urine Mucus (Auto) SMALL, Urine Sperm (Auto) 01/17/19 18:23: Immature Granulocyte % (Auto) 1.1, White Blood Count 14.9H, Red Blood Count 4.28, Hemoglobin 13.1, Hematocrit 41.0, Mean Corpuscular Volume 95.8, Mean Corpuscular Hemoglobin 30.6, Mean Corpuscular Hemoglobin Concent 32.0, Red Cell Distribution Width 14.6H, Platelet Count 264, Neutrophils (%) (Auto) 77.7H, Lymphocytes (%) (Auto) 11.9L, Monocytes (%) (Auto) 8.3H, Eosinophils (%) (Auto) 0.5, Basophils (%) (Auto) 0.5, Neutrophils # (Auto) 11.6H, Lymphocytes # (Auto) 1.8, Monocytes # (Auto) 1.2H, Eosinophils # (Auto) 0.1, Basophils # (Auto) 0.1, Nucleated Red Blood Cells % (auto) 0.0, Anion Gap 8, Glomerular Filtration Rate 34.8, Blood Urea Nitrogen 30H, Creatinine 1.51H, Sodium Level 139, Potassium Level 3.7, Chloride Level 101, Carbon Dioxide Level 30, Calcium Level 9.5 01/18/19 05:19: Nucleated Red Blood Cells % (auto) 0.0, Anion Gap 5L, Glomerular Filtration Rate 38.0, Blood Urea Nitrogen 27H, Creatinine 1.40H, Sodium Level 141, Potassium Level 3.7, Chloride Level 108H, Carbon Dioxide Level 28, Calcium Level 8.1L, Aspartate Amino Transf (AST/SGOT) 22, Alanine Aminotransferase (ALT/SGPT) < 6L, Alkaline Phosphatase 71, Total Bilirubin 0.5, Total Protein 5.6L, Albumin 2.2L, Albumin/Globulin Ratio 0.65L 01/18/19 07:33: Lactic Acid Level 1.0 CBC/BMP Laboratory Tests 01/17/19 18:23 Red Blood Count 4.28, Mean Corpuscular Volume 95.8, Mean Corpuscular Hemoglobin 30.6, Mean Corpuscular Hemoglobin Concent 32.0, Red Cell Distribution Width 14.6 H, Neutrophils (%) (Auto) 77.7 H, Lymphocytes (%) (Auto) 11.9 L, Monocytes (%) (Auto) 8.3 H, Eosinophils (%) (Auto) 0.5, Basophils (%) (Auto) 0.5, Neutrophils # (Auto) 11.6 H, Lymphocytes # (Auto) 1.8, Monocytes # (Auto) 1.2 H, Eosinophils # (Auto) 0.1, Basophils # (Auto) 0.1, Calcium Level 9.5 01/18/19 05:19 Red Blood Count 3.54 L, Mean Corpuscular Volume 96.9 H, Mean Corpuscular Hemoglobin 30.2, Mean Corpuscular Hemoglobin Concent 31.2 L, Red Cell Distribution Width 14.6 H, Calcium Level 8.1 L, Aspartate Amino Transf (AST/SGOT) 22, Alanine Aminotransferase (ALT/SGPT) < 6 L, Alkaline Phosphatase 71, Total Bilirubin 0.5, Total Protein 5.6 L, Albumin 2.2 L Microbiology Microbiology 01/18/19 Blood Culture, Received Pending 01/18/19 Blood Culture, Received Pending 01/17/19 Urine Culture, Received Pending Assessment Assessment: -Left pyelonephritis in a patient with UTI symptoms for several months but who has not had this treated with complaints of left flank pain -CT scan of the abdomen and pelvis 01/18/19 shows most likely a chronic UPJ obstruction with thinning of the left ureteral parenchymal tissue and several very small punctate nonobstructing calculi with findings of acute pyelonephritis -No history of passing kidney stones Plan -Recommend continued medical management with IV hydration, appropriate antibiotics, and supportive care -Recommend checking a post void residual since she still has some bladder pressure to make sure she is emptying her bladder completely -If the patient becomes septic or sicker then a nephrostomy tube or ureteral stent may be indicated at that time but I do not recommend that now Time Spent on Consult: Time Spent / Consult (Minutes): 60 SUPA HODGE MD Jan 18, 2019 16:14
[2019-01-18] MEDS ORDERED: cefTRIAXone SOD 1 GM in D5W MINI-BAG PLUS 50 ML IV SCH (20:00)
[2019-01-18] MEDS: VITAMIN D 1,000 INTERNATIONAL UNITS TABLET PO SCH (20:31)
[2019-01-18] MEDS: PRAVASTATIN 20 MG TAB PO SCH (20:31)
[2019-01-18 20:32] VITALS: BP 130/59
[2019-01-18] MEDS: VERAPAMIL 120 MG SR TAB PO SCH (20:32)
[2019-01-18] MEDS: rOPINIRole 0.25 MG TAB(REQUIP) PO SCH (20:32)
[2019-01-18 22:00] VITALS: BP 130/59
[2019-01-19] MEDS: NS 1,000 ML IV SCH (02:17)
[2019-01-19 06:00] VITALS: BP 101/57
[2019-01-19 06:03] LABS: HEMATOCRIT 33.5 % (36.0-47.0); HEMOGLOBIN 10.5 g/dl (12.0-15.5); MEAN CORPUSCULAR HEMOGLOBIN 30.6 pg (27.0-33.0); MEAN CORPUSCULAR HGB CONC 31.3 g/dl (32.0-36.5); MEAN CORPUSCULAR VOLUME 97.7 fl (80.0-96.0); PLATELET COUNT, AUTOMATED 166 10^3/uL (150-450); RED BLOOD COUNT 3.43 10^6/uL (4.00-5.40); WHITE BLOOD COUNT 7.1 10^3/uL (4.0-10.0)
[2019-01-19 06:30] LABS: CALCIUM LEVEL 8.2 MG/DL (8.8-10.2); CREATININE FOR GFR 1.19 MG/DL (0.55-1.30); GLOMERULAR FILTRATION RATE 45.8 (>32); POTASSIUM SERUM 3.9 MEQ/L (3.5-5.1)
[2019-01-19] MEDS: ENOXAPARIN 30 MG/0.3 ML SYR (J1650) SC SCH (08:59)
[2019-01-19] MEDS: CLOPIDOGREL 75 MG TAB PO SCH (09:07)
[2019-01-19] MEDS: DIGOXIN 0.125 MG TAB PO SCH (09:08)
[2019-01-19] MEDS ORDERED: CIPR500T19 PO (12:10)
--- NOTE | 2019-01-19 15:11 | DS.PDOC ---
Discharge Summary General Date of Admission Jan 17, 2019 at 20:51 Date of Discharge January 19, 2019 Attending Physician: ANNA GREEN MD Specialist/Consultants Involve: SUPA THOMAS MD Discharge Summary PROCEDURES PERFORMED DURING STAY: None ADMITTING DIAGNOSES: 1. Pyelonephrosis of left kidney with UTI DISCHARGE DIAGNOSES: 1. Acute Pyelonephritis of left kidney with evidence of UTI in the setting of obstruction 2. CAD s/p angioplasty 3. History of AAA 4. Hypertension 5. Hyperlipidemia COMPLICATIONS/CHIEF COMPLAINT: Flank pain and urinary problems HISTORY OF PRESENT ILLNESS: Patient is a 88-year-old female with a past medical history of CAD s/p angioplasty, history of AAA, hypertension, hyperlipidemia, GI bleed, cataracts, Painless rectal bleeding, peripheral artery disease presented to the ER with flank pain and urinary problems. Ms. Sampson states that she fell on her tailbone on Tuesday. In the days following the fall she developed left flank pain and was not able to urinate. She decided to present to the Er and was diagnosed with pyelonephrosis of left kidney with UTI. HOSPITAL COURSE: Patient presented to the ER where she had an Abdomen/Pelvis CT that showed left hydronephrosis to the UPJ. Lumbar spine, sacrum, and coccygeal x-ray displayed marked demineralization of bones. She was started on IV Rocephin, IV fluids, and supportive care in the ER and was continued on this care regimen throughout her hospitalization. Patient was monitored for sepsis and Urology was consulted. Dr. Thomas recommended patient continue on IV R ocephin, IV fluids, and supportive care. Urine culture was positive for growth of E. coli and venous blood cultures were negative for growth. Patient had an elevated white blood cell count for first two days of admission. Her white blood cell count returned to normal and she continued to be afebrile for rest of hospitalization. She is being discharged on oral antibiotics and will follow up with Urology in two weeks. DISCHARGE MEDICATIONS: Please see below. ALLERGIES: Please see below. PHYSICAL EXAMINATION ON DISCHARGE: VITAL SIGNS: Please see below. GENERAL: alert and cooperative, in pleasant mood HEENT: NC AT, mucous membranes moist and pink CARDIOVASCULAR: systolic murmur heard best in 2nd ICS on right and heard in carotids, RRR RESPIRATORY: clear to auscultation equal air intake bilaterally ABDOMINAL: soft, normal bowel sounds, no tenderness to palpation suprapubically, left CVA tenderness noted. EXTREMITIES: trace edema noted, no cyanosis or rashes noted. NEUROLOGICAL: no focal deficits, AAOx3 PSYCHOLOGICAL: normal affect LABORATORY DATA: Please see below. IMAGIN.abdomen/pelvic CT 01/17/19: 1. Interval right femoral medullary nolan with traversing nail extending into the right femoral head since 01/20/2018. 2. Iliac vascular stents with aortic calcification and short segment infrarenal abdominal aortic aneurysm measuring up to 4.2 cm in diameter but 3.6 cm in length. 3. Colonic diverticulosis without diverticulitis. 4. 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 5. Minimal nonobstructing bilateral renal calculi. 6. Otherwise negative CT abdomen/pelvis. 2. Lumbar spine x-ray 01/17/19: Chronic changes and other findings as described above with recommendations. 3. Sacrum and coccyx x-ray 01/17/19: The bones are markedly demineralized to such a degree a nondisplaced hairline fracture could easily be obscured. There is no evidence of a gross fracture. PROGNOSIS: Good ACTIVITY: As tolerated DIET: 2 gram sodium DISPOSITION: Patient being discharged home, Self-Care. DISCHARGE INSTRUCTIONS: 1. Return to ER for emergency 2. Stay hydrated 3. Complete course of antibiotics ITEMS TO FOLLOWUP ON ON OUTPATIENT: 1. Follow up with PCP on 01/29/19 at 3:00pm with Dr. Jaimes [phone] 2. Follow up with Dr. Cruz at [facility] on 02/01/19 at 9am [phone] DISCHARGE CONDITION: Stable I saw and evaluated the patient. I agree with the findings and plan of care as documented in the documenters note. I spent 45 minutes coordinating this patient's discharge. Vital Signs/I&Os Vital Signs Date Time Temp Pulse Resp B/P (MAP) Pulse Ox O2 Delivery O2 Flow Rate FiO2 01/19/19 09:08 80 01/19/19 06:00 97.0 18 101/57 (72) 94 01/17/19 14:32 Room Air I&O- Last 24 Hours up to 6 AM 01/19/19 05:59 Intake Total 3215 ml Output Total 400 ml Balance 2815 ml Laboratory Data Labs 24H Laboratory Tests 2 01/19/19 05:18: Nucleated Red Blood Cells % (auto) 0.0, Anion Gap 5L, Glomerular Filtration Rate 45.8, Blood Urea Nitrogen 27H, Creatinine 1.19, Sodium Level 144, Potassium Level 3.9, Chloride Level 113H, Carbon Dioxide Level 26, Calcium Level 8.2L CBC/BMP Laboratory Tests 01/19/19 05:18 Red Blood Count 3.43 L, Mean Corpuscular Volume 97.7 H, Mean Corpuscular Hemoglobin 30.6, Mean Corpuscular Hemoglobin Concent 31.3 L, Red Cell Distribution Width 14.6 H, Calcium Level 8.2 L Microbiology Microbiology 01/18/19 Blood Culture - Preliminary, Resulted No growth after 24 hours . All specim... 01/18/19 Blood Culture - Preliminary, Resulted No growth after 24 hours . All specim... 01/17/19 Urine Culture - Final, Complete Escherichia Coli Discharge Medications Scheduled Aspirin (Aspirin EC) 81 Mg Tablet.dr, 81 MG PO QHS, (Reported) Cholecalciferol (Vitamin D3) (Vitamin D3) 1,000 Unit Tablet, 1,000 UNIT PO QHS, (Reported) Ciprofloxacin/Ciprofloxa HCl (Ciprofloxacin ER 500 mg Tablet) 500 Mg Tbmp.24hr, 1 TAB PO DAILY Clopidogrel Bisulfate (Clopidogrel) 75 Mg Tablet, 75 MG PO DAILY, (Reported) Digoxin (Digoxin) 125 Mcg Tablet, 125 MCG PO QHS, (Reported) Furosemide (Furosemide) 20 Mg Tablet, 10 MG PO QHS, (Reported) Pravastatin Sodium (Pravastatin Sodium) 40 Mg Tab, 40 MG PO QHS, (Reported) Ropinirole HCl (Ropinirole HCl) 0.5 Mg Tablet, 0.5 MG PO QHS, (Reported) Verapamil HCl (Verapamil ER) 240 Mg Tablet.er, 240 MG PO QHS, (Reported) Scheduled PRN [Tramadol] , 1 DOSE PO DAILY PRN for PAIN, (Reported) PATIENT STATES THAT SHE TOOK ONE TRAMADOL LAST NIGHT AND IS UNAWARE OF DOSE. HER PHARMACY HAS NO RECORD OF TRAMADOL BEING FILLED. Allergies Coded Allergies: Penicillins (Verified Allergy, Intermediate, hives, 11/04/18) DMITRI CLEMENTE S-3 Jan 19, 2019 15:11 ANNA GREEN MD Jan 20, 2019 17:50
== END 2019-01-19 13:25 | disposition home or self-care (01) | DRG 690 ==
LOC: M ED 14:32 → M ED INP 20:51 → M MSPAV 22:20
PROVIDERS: ADMIT Internal Medicine; ATTEND Internal Medicine
DX: N10 Acute pyelonephritis (principal); I25.10 Atherosclerotic heart disease of native coronary artery without angina pectoris; E78.5 Hyperlipidemia, unspecified; I10 Essential (primary) hypertension; Z95.1 Presence of aortocoronary bypass graft; I73.9 Peripheral vascular disease, unspecified; K57.30 Diverticulosis of large intestine without perforation or abscess without bleeding; N13.2 Hydronephrosis with renal and ureteral calculous obstruction; Z79.82 Long term (current) use of aspirin; Z79.899 Other long term (current) drug therapy; Z88.0 Allergy status to penicillin; Z85.038 Personal history of other malignant neoplasm of large intestine; B96.29 Other Escherichia coli [E. coli] as the cause of diseases classified elsewhere

== ENCOUNTER → 2019-02-05 | Outpatient (REF) | payer MEDICARE ==
[~2019-02-05] MED LIST changes: +CIPR500T19 PO; +CLOP75TA2 PO; +TRAM1CAP15 PO; +TRAMADOL PO
== END ==
LOC: M SMT 17:08
PROVIDERS: ATTEND Urology
DX: N12 Tubulo-interstitial nephritis, not specified as acute or chronic (principal)
CPT/HCPCS: 87086; G0463

== ENCOUNTER → 2019-02-21 | Outpatient (CLI) | payer MEDICARE ==
--- NOTE | 2019-02-21 17:05 | REP ---
Limited pelvic, bladder sonography. History: Acute kidney injury. Findings: Filled bladder views shows smooth bladder rubio. No bladder mass lesion is appreciated. It appears to be incompletely distended. Prevoid bladder volume is calculated at 30 ml. Postvoid imaging shows no residual urine. Impression: Limited filled volume. Otherwise negative. Complete emptying. Electronically Signed by Alejo Salinas MD 02/21/2019 07:23 P
== END ==
LOC: M RAD 15:57
PROVIDERS: ATTEND Internal Medicine Nephrology
DX: N17.9 Acute kidney failure, unspecified (principal); N13.30 Unspecified hydronephrosis; I12.9 Hypertensive chronic kidney disease with stage 1 through stage 4 chronic kidney disease, or unspecified chronic kidney disease

== ENCOUNTER → 2019-03-27 | Outpatient (CLI) | payer MEDICARE ==
[~2019-03-27] MED LIST changes: +HEPARIN 1,000 UNITS/ML 10ML VIAL (FOR RADIOLOGY& DIALYSIS ONLY) As Ordered ONE; +ISOVUE-300 61% 50ML VIAL (Q9967) As Ordered ONE; +LIDOCAINE 1% MDV 20ML VIAL As Ordered ONE; +MIDAZOLAM INJ 2 MG/2 ML VIAL (J2250) As Ordered ONE; +diphenhydrAMINE INJ 50MG/ML VIAL (J1200) As Ordered ONE; +fentaNYL 100 MCG/2 ML INJECTION (J3010) As Ordered ONE
[2019-03-27 07:36] LABS: HEMOGLOBIN 11.3 g/dl (12.0-15.5); MEAN CORPUSCULAR HGB CONC 31.4 g/dl (32.0-36.5); MEAN CORPUSCULAR VOLUME 95.5 fl (80.0-96.0); PLATELET COUNT, AUTOMATED 247 10^3/uL (150-450); RED BLOOD COUNT 3.77 10^6/uL (4.00-5.40); WHITE BLOOD COUNT 8.6 10^3/uL (4.0-10.0)
[2019-03-27 07:55] LABS: CALCIUM LEVEL 9.3 MG/DL (8.8-10.2); CREATININE FOR GFR 1.27 MG/DL (0.55-1.30); GLOMERULAR FILTRATION RATE 42.5 (>32); POTASSIUM SERUM 4.1 MEQ/L (3.5-5.1)
--- NOTE | 2019-03-27 11:30 | ROOPDOC ---
[facility] Report Of Operation Report of Operation DATE OF PROCEDURE: 03/27/19 PREPROCEDURE DIAGNOSES: Bilateral lower extremity peripheral vascular disease with short distance lifestyle limiting claudication and pain POSTPROCEDURE DIAGNOSES: Same PROCEDURE: 1. Ultrasound-guided access left common femoral artery 2. Aortoiliofemoral arteriogram and right lower extremity runoff from selection of right common femoral artery 3. Select use right lower extremity from popliteal and posterior tibial artery 4. Attempt to cross chronic total occlusion posterior tibial artery and peroneal artery, aborted 5. Angioplasty tibioperoneal trunk and anterior tibial artery proximally, both with 2.5 x 100 starling balloon 6. Completion arteriograms right lower extremity 7. Ultrasound-guided access right common femoral artery 8. Runoff left lower extremity from selection of left common femoral artery 9. Cross chronic total occlusion left superficial femoral artery and angioplasty left superficial femoral artery was 6 x 200 [place] balloon 10. Stenting left superficial femoral artery with 2 (6 x 100) Innova stent and 6 x 150 Innova stent and post-dilation was 6 x 200 balloon 11. Attempt to cross chronic total occlusion posterior tibial artery and per rodriguez artery, aborted 12. Angioplasty bilateral common iliac arteries and external iliac arteries was 7 x 100 Madras balloon 13. Completion arteriograms 14. Mynx bilateral common femoral artery SURGEON: Benito Lebron MD ANESTHESIA: Local anesthesia with 20 mL of lidocaine. Moderate intravenous conscious sedation was monitored by Dr. Lebron. The patient was independently monitored by registered nurse assigned to the Department of radiology utilizing automated blood pressure, EKG, and pulse oximetry. The detailed conscious sedation record is Asher the hospital information system. The sedation record is as follows: Start time 07:55, stop time 11:04, heparin 7000 units IV, fentanyl 100 g IV, Versed 2 mg IV. INDICATION FOR PROCEDURE: Ms. Sampson is a very pleasant 88-year-old patient with severe peripheral vascular disease status post bilateral iliac stenting and right lower extremity angioplasty and stenting in the past by other providers. She will return to clinic with ongoing lifestyle limiting claudication and that she could barely make it to her mailbox without pain. We discussed the possibility that some of her pain may be neuropathic, but certainly she still had some limitations with iliac inflow despite stenting, as well as bilateral tibial disease suspected. Based on her noninvasive imaging of the left lower extremity which has not had intervention, we also thought she may have some SFA disease as well. We discussed the risks benefits and alternatives to arteriogram, angioplasty and stenting as needed. She was agreeable to proceed. Informed consent was obtained. INTERPRETATION: 1. There is a small aortic aneurysm, nonruptured infrarenal. 2. The common iliac artery on the right has an aneurysmal portion and this along with some recurrent stenosis within the stents appear somewhat flow-limiting. The left common iliac artery has a mild aneurysmal dilation near the external iliac artery origin that also causes a lag and contrast flow. There appears to be some heavy plaque throughout the iliac that despite stenting slows the flow of the contrast. 3. The previous endarterectomy on the right common femoral artery is widely patent. There is good flow into the profunda. The right SFA is widely patent status post angioplasty and stenting in the past. Popliteal is widely patent. There is single-vessel runoff through the anterior tibial artery. It has a 50% stenosis near the origin but is otherwise widely patent. The tibioperoneal trunk is patent but ends abruptly and flows out into multiple collaterals in every direction at the distal end. No named vessel, peroneal or posterior tibial, origin can be seen. 4. Attempts to cross into the posterior tibial artery and peroneal artery were aggressive, but unsuccessful. There was a mild AV fistula caused from one of the collaterals into a small collateral vein and therefore we angioplasty across the tibioperoneal trunk for 2 minutes and the AV fistula was resolved. 5. After angioplasty of the origin of the anterior tibial artery, there was less than 10% residual stenosis and widely patent flow to the foot. 6. The left common femoral artery into the profundus widely patent. There is a mild stenosis at the origin the SFA and then several focal stenosis ranging from 40% to near occlusion were scattered throughout the proximal two thirds of the vessel. Distally, there was a little bit of heavy plaque near Emre's canal, but the popliteal is patent with single-vessel runoff again throw widely patent anterior tibial artery. The tibial peroneal trunk is patent but the posterior tibial artery and peroneal artery are chronically occluded. Attempts to cross the tibials were unsuccessful and aborted. 7. After angioplasty of the SFA, there were several AV fistula is due to heavy plaque, and irregularity in the lumen that was dull considerably flow-limiting. We repeated angioplasties several times for several minutes but the AV fistulas did not resolve in the luminal irregularities remained. We therefore selected 3 Innova stents and these were deployed and post-dilated with widely patent flow and resolution of the AV fistulas. 8. Kissing balloon angioplasty from the common iliacs bilaterally did not impro ve luminal flow through the iliac vessels. There is still hang-up of contrast due to aneurysmal segments and irregular plaque throughout. We do not have covered 8 balloon expandable stents, and we'll have to obtain these if further intervention on the iliacs as desired. 9. Successful deployment mynx closure devices bilaterally. REPORT OF OPERATION: Patient was brought to the angiographic suite in stable condition. Her bilateral groins were prepped and draped in a sterile fashion. I'm out was performed. Sedation was administered without complication. Local anesthesia was administered to skin and subcutaneous taste tissue over the left groin and a microneedle was used to access the left common femoral artery under ultrasound guidance. A wire was passed through this access under fluoroscopic guidance and a micro-sheath was placed. Glidewire was advanced through this access under fluoroscopic guidance into the aorta and the sheath was exchanged for 6 Malawian sheath and flushed with saline. Over the guidewire, infusion catheter was advanced in the distal aorta and and arteriogram was performed. Please see above interpretation. We then it went up and over the bifurcation into the common femoral artery and a runoff of the right lower extremity was performed. Please see interpretation above. We then navigated the Glidewire down to the tibials. We extended the sheath for destination 45 cm sheath and flushed the sheath with saline. With an angle glide cath, we were able to access the tibioperoneal trunk and attempted to find the lumen of either the peroneal or the posterior tibial. We were pretty aggressive with this to try to give the patient even one additional tibial vessel. Unfortunately, despite our best efforts we were not able to recannulate either the posterior tibial or the peroneal artery. Completion arteriogram after this attempts showed a small AV fistula and therefore a 2.5 x 100 Tommie balloon was advanced down to the distal end of the tibioperoneal trunk and inflated for 3 minutes at low inflation and the AV fistula resolved. We then navigated into the anterior tibial artery and did a proximal angioplasty with less than 10% residual stenosis and excellent flow through the anterior tibial artery. After angioplasty, there was no extravasation, embolization, or dissection. We then exchanged the sheath for short 6 Malawian sheath in the left common femoral artery. The left lower extremity runoff was performed through the sheath. Please see interpretation above. We then accessed the right common femoral artery under ultrasound guidance after local anesthesia was administered. A wire was passed through this access under fluoroscopic guidance and a micro-sheath was placed. A Glidewire was advanced through this access and a 6 Malawian sheath was placed and flushed with saline. Following this, we went up and over the bifurcation with an angle catheter and Glidewire and placed a 45 cm destination sheath. The sheath was flushed with saline. The Glidewire and glide cath were used to cross the superficial femoral artery. There is one area of occlusion in the mid SFA that was difficult to cross, but eventually we were able to get across it and confirm this with a quick contrast injection in the SFA and family were in the true lumen. We then angioplasties across the length of the SFA with 6 x 200 Madras balloon in multiple inflations. Following this, there was an AV fistula in several areas distally due to heavy plaque. Despite long inflations of the balloon at low atmospheres, the AV fistulas persisted. There was a lot of lumina l irregularity in the plaque as well. We therefore selected Innova stents and stented from Emre's canal to the proximal SFA. Following this, the AV fistulas had resolved and there was widely patent flow through the SFA. We then went down to the tibials and again we attempted with considerable effort to try to cross into the peroneal or posterior tibial artery but were unsuccessful. The patient only has one vessel runoff in each lower extremity, although each anterior tibial artery has excellent flow. After angioplasty of the left SFA and attempts to open the tibials, completion arteriogram performed and we did not find any residual embolization extravasation AV fistula or dissection. There was widely patent flow through the femoral system into the anterior tibial artery to the foot. Next, we exchanged the right destination sheath for short 6 Malawian sheath and through each of the iliac sheaths we advanced a 7 x 100 Madras balloon. The balloons were inflated with 2 areas of waist on the right and one area of waist on the left, but mostly without difficulty. Angioplasties were performed at high atmosphere and then low atmospheres for three-minute inflations. Following this, it was a mild improvement in flow but overall the aneurysmal segments that are not excluded by the uncovered stent placed previously are still catching some of the flow and contrast and are somewhat flow-limiting. I think these would benefit from covered stents from the hypogastric to the origin of the common iliac artery, possibly kissing stents if necessary. Unfortunately, we do not have balloon expandable covered stents for the iliac vessels at this time and we will have to special order them, but I would like to see the patient back in clinic first and see if our efforts today have improved her symptoms at all or if she feels she needs more intervention. For now, this concluded her procedure into meetings closure devices were deployed in each groin with good hemostasis. Pressure was held for 10 minutes in each groin and the patient was then taken back to recovery in stable condition. There were no complications. She tolerated sedation well. She will be monitored on bedrest for 4 hours postprocedure. Contrast: 114 cc Isovue ESTIMATED BLOOD LOSS: Approximately 10 mL. COMPLICATIONS: None. PLAN: We will continue the patient's Plavix postprocedure. We will see her back in clinic to see how she is doing after the procedure. I still feel that she needs covered stents in the bilateral common iliac arteries extending into the distal aorta as kissing stents. She has some aneurysmal segments that are not excluded by the uncovered stents and I think this is limiting inflow to her lower extremities bilaterally. However, if the patient feels better after interventions done today, we may not need to do that and we will decide this based on her clinical status. BENITO LEBRON MD Mar 27, 2019 11:30
[2019-03-27 14:20] VITALS: BP 122/56
== END ==
LOC: M IRPRO 06:33
PROVIDERS: ATTEND Surgery Vascular Surgery
DX: I70.213 Atherosclerosis of native arteries of extremities with intermittent claudication, bilateral legs (principal); I70.223 Atherosclerosis of native arteries of extremities with rest pain, bilateral legs; I70.92 Chronic total occlusion of artery of the extremities; I71.4 Abdominal aortic aneurysm, without rupture; I72.3 Aneurysm of iliac artery
CPT/HCPCS: 37220; 37226; 37228; 37232; 75716; 75774; 80048; 85027; 99152; 99153; C1725; C1760; C1769; C1876; C1887; C1894; J2250; J3010; Q9967

== ENCOUNTER → 2020-01-21 | Outpatient (CLI) | payer MEDICARE ==
[~2020-01-21] MED LIST changes: -ASPI81TA85 PO; +ASPI81TA86 PO; -DIGO0.12 PO; +DIGO0.123 PO; -HEPARIN 1,000 UNITS/ML 10ML VIAL (FOR RADIOLOGY& DIALYSIS ONLY) As Ordered ONE; -ISOVUE-300 61% 50ML VIAL (Q9967) As Ordered ONE; -LIDOCAINE 1% MDV 20ML VIAL As Ordered ONE; -MIDAZOLAM INJ 2 MG/2 ML VIAL (J2250) As Ordered ONE; -ROPI0.5T PO; +ROPI0.5T3 PO; -diphenhydrAMINE INJ 50MG/ML VIAL (J1200) As Ordered ONE; -fentaNYL 100 MCG/2 ML INJECTION (J3010) As Ordered ONE
--- NOTE | 2020-03-14 16:28 | REP ---
CT OF THE ABDOMEN AND PELVIS: HISTORY: Abdominal aortic aneurysm. Atherosclerosis. COMPARISON: CT study from 01/17/19. FINDINGS: Preliminary digital application trainer radiograph demonstrates a right hip prosthesis, multiple surgical clips scattered throughout the pelvis and iliac artery stents extensively, right greater than left. The lung bases show no evidence of infiltrate. Some emphysematous changes are noted bilaterally. There is a small quantity of pericardial fluid, unchanged. No pleural effusion is seen. The liver and spleen are normal in size, homogeneous in texture. No adrenal lesion is seen on either side. There is advanced atrophy of the left kidney and moderate hydronephrosis of the left kidney with mild to moderate dilation of the renal pelvis. This is actually a little less pronounced than on the prior study. The right kidney is morphologically intact. No pancreatic abnormality is observed. The gallbladder is small and contracted in appearance. There is extensive pancolonic diverticulosis without CT evidence of diverticulitis. No uterine or pelvic mass or adenopathy is observed. A normal appendix is visible in the right lower quadrant. No abdominal wall defect is seen. The distal descending aorta is somewhat ectatic, measuring 3.2 cm in AP dimension. There is an abdominal aortic aneurysm with saccular enlargement just below the origin of the renal arteries. This measures 3.9 cm in anteroposterior dimension, previously 3.9 cm. This is felt to be unchanged. The distal aorta is slightly ectatic, measuring 3.1 cm, also unchanged. There is extensive vascular calcification in the aorta and in the iliacs. Bilateral common iliac artery stents are again noted in place. There is an elongate stent in place in the right external iliac artery also noted. These are unchanged in position. IMPRESSION: Abdominal aortic aneurysm, unchanged from the comparison study of 01/17/29. Bilateral iliac artery stents again noted in place. Right hip arthroplasty. Pancolonic diverticulosis. [facility]
== END ==
LOC: M RAD 13:46
PROVIDERS: ATTEND Surgery Vascular Surgery
DX: I71.4 Abdominal aortic aneurysm, without rupture (principal); I65.23 Occlusion and stenosis of bilateral carotid arteries; I70.213 Atherosclerosis of native arteries of extremities with intermittent claudication, bilateral legs

== ENCOUNTER → 2020-02-06 | Outpatient (CLI) | payer MEDICARE ==
--- NOTE | 2020-03-21 13:34 | REP ---
BILATERAL LOWER EXTREMITY DUPLEX DOPPLER ARTERIAL ULTRASOUND HISTORY: Peripheral vascular disease. TECHNIQUE: Real-time ultrasound evaluation and duplex Doppler interrogation of bilateral lower extremity arterial systems is performed. FINDINGS: DARIA right of 0.9, left 1.0. There is moderate diffuse atherosclerotic plaquing and narrowing bilaterally throughout the lower extremity arterial systems. There is focal narrowing of the mid right superficial femoral artery with mild elevation of the peak systolic velocity suggesting mild stenosis. There is a stent in the left superficial femoral artery, which appears patent. There are diffuse biphasic and triphasic waveforms. VELOCITY CHART PSV RIGHT (cm/s) PSV LEFT (cm/s) Femoral artery 93.3 84.3 Profunda 97.6 94.8 Proximal SFA 89.3 115.3 Mid-SFA 140.5 128.9 Distal SFA 124.8 60.4 Popliteal 62.8 41.0 Proximal ROCK 84.6 48.7 Tibioperoneal trunk 66.1 37.8 Proximal RECYCLING MANAGER 51.4 26.1 Distal RECYCLING MANAGER 17.4 21.9 Distal ROCK 58.1 45.2 MTDD
--- NOTE | 2020-03-25 10:04 | REP ---
CAROTID ULTRASOUND HISTORY: Atherosclerosis. TECHNIQUE: Real-time ultrasound evaluation and duplex Doppler interrogation of the extracranial carotid vasculature is performed. FINDINGS: Moderate partially calcified plaque is seen in both carotid bulbs. There is no evidence of significant stenosis of either internal carotid artery. Normal flow velocity is identified. There is normal direction of flow in both vertebral arteries. RIGHT LEFT Peak systolic velocity ICA 67.4 cm/s 115.3 cm/s End diastolic velocity ICA 14.4 cm/s 15.9 cm/s Peak systolic velocity CCA 66.3 cm/s 44.2 cm/s Peak systolic velocity ECA 72.0 cm/s 106.3 cm/s ICA/CCA ratio 1.02 2.6 IMPRESSION: Moderate plaquing and narrowing in both carotid bulbs. No evidence of hemodynamically significant stenosis of either internal carotid artery. MTDD
== END ==
LOC: M RAD 10:00
PROVIDERS: ATTEND Surgery Vascular Surgery
DX: I71.4 Abdominal aortic aneurysm, without rupture (principal); I65.23 Occlusion and stenosis of bilateral carotid arteries; I70.213 Atherosclerosis of native arteries of extremities with intermittent claudication, bilateral legs

== ENCOUNTER → 2020-04-28 | Outpatient (REF) | payer MEDICARE | LOC: M LAB REF 17:01 | PROVIDERS: ATTEND Physician Assistant | DX: C44.329 Squamous cell carcinoma of skin of other parts of face (principal) ==

== ENCOUNTER → 2021-02-06 | Outpatient (CLI) | payer MEDICARE ==
[~2021-02-06] MED LIST changes: +ESCI10TA16 PO; -ESCI10TA2 PO; +LIDOCAINE 1% MDV 20ML VIAL As Ordered ONE; +LISI10TA22 PO; -LISI10TA4 PO
[2021-02-06 15:00] VITALS: BP 146/74
--- NOTE | 2021-02-06 17:31 | REP ---
PROCEDURE NAME: PICC LINE FLUORO GUIDE CLINICAL INFORMATION: [facility] LONG TERN ANTIBIOTICS. COMPARISON: None. PROCEDURE DESCRIPTION: The procedure was performed by ADALBERTO Woo, under the direct supervision of Dr. Salinas. The risks and benefits of the procedure were explained to the patient and an informed consent was obtained both verbally and written. Directly prior to the start of the procedure a formal time-out was completed in the procedure room. The right basilic vein was localized using ultrasound guidance. The skin was prepped and draped in sterile fashion. One mL of 1% lidocaine 10 mg/mL was used as a local anesthetic. Using ultrasound guidance the right basilic vein was cannulated, and a 0.018 guidewire was inserted and advanced to the level of SVC using fluoroscopic guidance. The needle was removed and a 5.5 Macedonian dilator and peel-away sheath was inserted over the guidewire. A 5.5 Macedonian dual lumen catheter was cut to a length of 35 cm. The dilator was removed and the catheter was inserted over the guidewire with the tip ending at the level of the SVC. The peel-away sheath was removed and the catheter was flushed with heparinized saline as per hospital protocol. The catheter was affixed to the skin and a sterile dressing was applied. The patient tolerated the procedure well and there were no immediate complications. CONCLUSION: PICC line insertion into the right basilic vein. 0.1 minutes of fluoroscopy time was utilized for this procedure. Some fluoroscopic images are performed with last image hold technology. These images require no additional radiation. <Electronically signed by Swapna Burger > 02/06/21 1700 <Electronically signed by Chente Salinas > 02/06/21 [id number]
== END ==
LOC: M IRPRO 13:45
DX: Z79.2 Long term (current) use of antibiotics (principal); N39.0 Urinary tract infection, site not specified
CPT/HCPCS: 36571; C1751; J1642; J1644